=== PATIENT | male | born 1940 | race Caucasian/White ===

== ENCOUNTER 2017-02-20 23:59 | Observation (INO) | payer BC, MEDICARE ==
[2017-02-20 23:59] VITALS: BMI 47.0
[2017-02-21] MEDS ORDERED: Nitroglycerin 50mg in D5W 250 ML IV ONE (00:10)
[2017-02-21 00:32] LABS: BASO # 0.1 K/uL (0.0-0.2); BASO % 0.7 % (0.0-2.0); EOS # 0.2 K/uL (0.0-0.7); EOS % 1.9 % (0.0-4.0); HEMATOCRIT 36.6 % (35.0-51.0); LYMPH # 1.7 K/uL (1.0-4.3); LYMPH % 13.9 % (20.0-40.0); MEAN CELL VOLUME 89.6 fl (80.0-94.0); MEAN CORPUSCULAR HEMOGLOBIN 28.2 pg (27.0-31.0); MEAN CORPUSCULAR HGB CONC 31.5 g/dL (33.0-37.0); MEAN PLATELET VOLUME 8.5 fl (7.2-11.7); MONO # 0.6 K/uL (0.0-0.8); MONO % 5.2 % (0.0-10.0); NEUT # 9.8 K/uL (1.8-7.0); NEUT % 78.3 % (50.0-75.0); RED CELL DISTRIBUTION WIDTH 16.3 % (11.5-14.5); WHITE BLOOD COUNT 12.5 K/uL (4.8-10.8)
--- NOTE | 2017-02-21 00:34 | ED PDOC ---
HPI: SOB/CHF/COPD Time Seen by Provider: 02/21/17 00:07 Chief Complaint (Nursing): Respiratory Distress Chief Complaint (Provider): Respiratory Distress History Per: Patient History/Exam Limitations: no limitations Onset/Duration Of Symptoms: Hrs (x1) Current Symptoms Are (Timing): Still Present Exacerbating Factor(s): Other (Layind down) Associated Symptoms: Chest Pain Additional History Per: Patient Additional Complaint(s): Noah Edward is a 76 year old male with a past medical history of HTN, CAD, CHF , endstage renal disease, chronic kidney disease and a past surgical history of coronary stents who presents to the ED with a chief complaint of SOB onset x1 hour. Patient admits to suffering from one sided chest discomfort and unable to breath. Patient reports similar symptoms back in October and was diagnosed with CHF. SOB is worse when lying down and denies associated symptoms including nausea, and vomiting. Past Medical History Reviewed: Historical Data, Nursing Documentation, Vital Signs Vital Signs: Last Vital Signs Temp 97.6 F 02/21/17 05:07 Pulse 76 02/21/17 05:07 Resp 16 02/21/17 05:07 BP 132/75 02/21/17 05:07 Pulse Ox 97 02/21/17 06:43 - Medical History PMH: CAD ([place]), CHF, Diabetes, HTN, Hypercholesterolemia, End Stage Renal Disease , Chronic Kidney Disease Denies: HIV, Kidney Stones Other PMH: AV Graphs - Surgical History Surgical History: Coronary Stent - Family History Family History: States: Hypertension - Social History Current smoker - smoking cessation education provided: No Ex-Smoker (has not smoked in the last 12 months): No Alcohol: None Drugs: Denies - Home Medications Home Medications: Ambulatory Orders Medication Instructions Recorded Aspirin [Ecotrin] 81 mg PO DAILY 09/16/16 Calcium Acetate [Phoslo] 3 tab PO AC 09/16/16 Cinacalcet [Sensipar] 30 mg PO DAILY 09/16/16 Ergocalciferol (Vitamin D2) 50,000 iu PO QWK 09/16/16 [Vitamin D2] Insulin Glargine, Recombina 10 units SQ DAILY 09/16/16 [Lantus] Insulin Lispro [Humalog Kwikpen 4 units SQ TID 09/16/16 U-100] Metoprolol Succinate 25 mg PO DAILY 09/16/16 Omeprazole 40 mg PO HS 12/07/16 Prasugrel [Effient] 10 mg PO DAILY 09/16/16 Pravastatin Sodium 40 mg PO HS 09/16/16 - Allergies Allergies/Adverse Reactions: Allergies Allergy/AdvReac Type Severity Reaction Status Date / Time Sulfa (Sulfonamide Allergy PAIN Verified 09/15/16 22:42 Antibiotics) milk AdvReac NAUSEA Verified 09/15/16 22:42 Review of Systems ROS Statement: Except As Marked, All Systems Reviewed And Found Negative Cardiovascular: Positive for: Other (Right sided chest discomfort and unable to breath) Respiratory: Positive for: Shortness of Breath (Acute) Gastrointestinal: Negative for: Nausea, Vomiting Physical Exam - Reviewed Nursing Documentation Reviewed: Yes Vital Signs Reviewed: Yes - Physical Exam Appears: Positive for: Well, In Acute Distress (Mild) Head Exam: Positive for: ATRAUMATIC, NORMAL INSPECTION, NORMOCEPHALIC Skin: Negative for: Diaphoresis Eye Exam: Positive for: Normal appearance, EOMI, PERRL ENT: Positive for: Normal ENT Inspection Neck: Positive for: Normal Cardiovascular/Chest: Positive for: Regular Rate, Rhythm, JVD. Negative for: Murmur, Tachycardia Respiratory: Positive for: Rales (Bibasilar). Negative for: Wheezing, Respiratory Distress Gastrointestinal/Abdominal: Positive for: Normal Exam, Soft. Negative for: Tenderness Extremity: Positive for: Normal ROM DTR - Knee (R): 1+ DTR - Knee (L): 1+ DTR - Ankle (R): 1+ DTR - Ankle (L): 1+ Lymphatic: Positive for: Deferred Neurologic/Psych: Positive for: Alert, Oriented - Laboratory Results Result Diagrams: 02/21/17 00:28 02/21/17 00:28 - ECG O2 Sat by Pulse Oximetry: 97 (RA) Pulse Ox Interpretation: Normal - Radiology X-Ray: Read By Radiologist X-Ray Interpretation: Cardiomegaly, Other (Pulmonary vascular congestion, Pulmonary edema) Medical Decision Making Medical Decision Makin: Initial Impression: Acute SOB in setting of known CHF and hemodialysis. Initial Plan: * Labs * CXR * EKG * Re-Eval Patient changed to BIPAP IV nitroglycerin and lasix. 30 min critical care. CXR reports cardiomegaly bilateral pulmonary vascular congestion; pulmonary edema. Patients ALS was administered along with nitroglycerin sublingual x4 and cpap which has given him considerable relief. 0116: No clinical significant abnormalities Patient will be admitted to ICU for further treatment and CHF pulmonary edema endstage renal disease hypercholesterolemia Respiratory failure Case referred to Dr. Penaloza and admits for Dr Nuñez. Condition is guarded. Scribe Attestation: Documented by Tyler Gutierrez acting as a scribe for Micheal Mcgraw MD. Provider Scribe Attestation: All medical record entries made by the Scribe were at my direction and personally dictated by me. I have reviewed the chart and agree that the record accurately reflects my personal performance of the history, physical exam, medical decision making, and the department course for this patient. I have also personally directed, reviewed, and agree with the discharge instructions and disposition. Disposition - Clinical Impression Clinical Impression: SOB (shortness of breath), CHF (congestive heart failure) Clinical Impression: (Ruled Out): Hemodialysis access site with arteriovenous graft - Patient ED Disposition Is Patient to be Admitted: Yes Discussed With DrShar: Eric Nuñez - Disposition Condition: GUARDED
[2017-02-21 00:41] LABS: ALB/GLOB RATIO 1.3 (1.0-2.1); BILIRUBIN,TOTAL 0.6 mg/dl (0.2-1.3); CALCIUM 8.7 mg/dL (8.4-10.2); POTASSIUM 4.6 MMOL/L (3.6-5.0); TOTAL PROTEIN 7.4 G/DL (6.3-8.2)
[2017-02-21 00:52] LABS: TROPONIN I 0.074 ng/mL (0.00-0.120)
--- NOTE | 2017-02-21 01:16 | CP.PCM.HP ---
History of Present Illness - History of Present Illness History of Present Illness: PCP: Tony Reyes MD Chief Complaint: SOB HPI: 76 years old male with hx of CAD, DM, CHF and ESRD on hemodialysis Wednesday, Wednesday, and Wednesday , last dialysed 08/27 , comes with sudden unset of severe SOB one hour prior to coming to the ED. He also referred Orthopnea,Some discomfort in the chest with diaphoresis but no palpitation. No coughing, nausea nor vomits. No diarrhea nor dysuria. PMH; CAD ([place]), CHF, Diabetes, HTN, Hypercholesterolemia, End Stage Renal Disease on Hemodialysis M W F PSH; Right A-V fistula for dialysis; Coronary stent placement FH: HTN SH: Heavy smoker; No alcohol; No illegal drug use. Allergies: Sulfa Present on Admission - Present on Admission Any Indicators Present on Admission: Yes History of DVT/PE: No History of Uncontrolled Diabetes: Yes Urinary Catheter: No Decubitus Ulcer Present: No Review of Systems - Constitutional Constitutional: absent: Anorexia, Chills, Fatigue, Fever, Headache - EENT Eyes: Requires Corrective Lenses. absent: Diplopia, Photophobia, Sees Flashes Ears: absent: Decreased Hearing, Ear Discharge, Ear Pain, Tinnitus Nose/Mouth/Throat: absent: Epistaxis, Nasal Congestion, Nasal Discharge, Sinus Pain, Sinus Pressure - Cardiovascular Cardiovascular: Dyspnea, Leg Edema, Orthopnea - Respiratory Respiratory: Dyspnea, Chest Congestion. absent: Stridor - Gastrointestinal Gastrointestinal: absent: Abdominal Pain, Constipation, Diarrhea, Nausea, Vomiting - Genitourinary Genitourinary: absent: Dysuria, Flank Pain, Hematuria, Urinary Frequency - Musculoskeletal Musculoskeletal: absent: Arthralgias, Back Pain, Muscle Weakness - Integumentary Integumentary: absent: Pruritus, Rash Additional comments: Sacral Redness with papule. - Neurological Neurological: absent: Confusion, Focal Weakness, Headaches, Vertigo, Weakness - Psychiatric Psychiatric: absent: Anxiety, Depression, Panic Attacks - Endocrine Endocrine: absent: Palpitations, Polydipsia, Polyphagia, Polyuria - Hematologic/Lymphatic Hematologic: absent: Easy Bleeding, Easy Bruising Past Patient History - Infectious Disease Hx of Infectious Diseases: None - Tetanus Immunizations Tetanus Immunization: Unknown - Past Medical History & Family History Past Medical History?: Yes - Past Social History Smoking Status: Heavy Smoker > 10 Cigarettes Daily Chewing Tobacco Use: No Cigar Use: No Alcohol: None Drugs: Denies Home Situation {Lives}: With Family - CARDIAC Hx Congestive Heart Failure: Yes Hx Hypercholesterolemia: Yes Hx Hypertension: Yes - PULMONARY Hx Respiratory Disorders: No - NEUROLOGICAL Hx Neurological Disorder: No - HEENT Hx HEENT Problems: Yes Other/Comment: Use Eyeglasses - RENAL Hx Chronic Kidney Disease: Yes Hx Kidney Stones: No - ENDOCRINE/METABOLIC Hx Endocrine Disorders: Yes Hx Diabetes Mellitus Type 2: Yes - HEMATOLOGICAL/ONCOLOGICAL Hx Human Immunodeficiency Virus (HIV): No - INTEGUMENTARY Hx Dermatological Problems: Yes Hx Merchant: 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 - MUSCULOSKELETAL/RHEUMATOLOGICAL Hx Musculoskeletal Disorders: No Hx Falls: No - GASTROINTESTINAL Hx Gastrointestinal Disorders: No - GENITOURINARY/GYNECOLOGICAL Hx Genitourinary Disorders: No - PSYCHIATRIC Hx Psychophysiologic Disorder: No Hx Substance Use: No - SURGICAL HISTORY Hx Coronary Stent: Yes - ANESTHESIA Hx Anesthesia: Yes Hx Anesthesia Reactions: No Hx Malignant Hyperthermia: No Meds Allergies/Adverse Reactions: Allergies Allergy/AdvReac Type Severity Reaction Status Date / Time Sulfa (Sulfonamide Allergy PAIN Verified 09/15/16 22:42 Antibiotics) milk AdvReac NAUSEA Verified 09/15/16 22:42 Physical Exam - Constitutional Additional comments: On BIPAP with improvement of the respiratory distress at this time of examination. - Head Exam Head Exam: ATRAUMATIC, NORMAL INSPECTION, NORMOCEPHALIC - Eye Exam Eye Exam: EOMI, Normal appearance Pupil Exam: NORMAL ACCOMODATION, PERRL - ENT Exam ENT Exam: Mucous Membranes Moist, Normal Exam, Normal External Ear Exam, Normal Oropharynx - Neck Exam Neck exam: Positive for: Full Rom, Normal Inspection. Negative for: Lymphadenopathy, Tenderness - Respiratory Exam Respiratory Exam: Rales, Wheezes. absent: Rhonchi - Cardiovascular Exam Cardiovascular Exam: RRR. absent: Gallop, REGULAR RHYTHM - GI/Abdominal Exam GI & Abdominal Exam: Normal Bowel Sounds, Soft. absent: Mass, Organomegaly, Tenderness - Rectal Exam Rectal Exam: Deferred - Extremities Exam Extremities exam: Positive for: full ROM, normal inspection, pedal edema. Negative for: calf tenderness - Back Exam Back exam: NORMAL INSPECTION. absent: CVA tenderness (L), CVA tenderness (R) - Neurological Exam Neurological exam: Alert, CN II-XII Intact, Oriented x3, Reflexes Normal - Psychiatric Exam Psychiatric exam: Normal Affect, Normal Mood - Skin Skin Exam: Dry, Intact, Normal Color, Warm Additional comments: sacral erythema with a papule Results - Vital Signs Recent Vital Signs: Last Vital Signs Temp 97.5 F L 02/21/17 00:12 Pulse 94 H 02/21/17 01:07 Resp 16 02/21/17 01:07 BP 127/65 02/21/17 01:07 Pulse Ox 97 02/21/17 01:12 - Labs Result Diagrams: 02/21/17 00:28 02/21/17 00:28 Labs: Laboratory Results - last 24 hr 02/21/17 02/21/17 02/21/17 00:20 00:28 00:28 WBC 12.5 H D RBC 4.08 L Hgb 11.5 L D Hct 36.6 MCV 89.6 MCH 28.2 MCHC 31.5 L RDW 16.3 H Plt Count 176 MPV 8.5 Neut % (Auto) 78.3 H Lymph % (Auto) 13.9 L [place] % (Auto) 5.2 Eos % (Auto) 1.9 Baso % (Auto) 0.7 Neut # 9.8 H Lymph # 1.7 [place] # 0.6 Eos # 0.2 Baso # 0.1 Sodium 144 Potassium 4.6 Chloride 99 Carbon Dioxide 26 Anion Gap 24 H BUN 81 H Creatinine 9.8 H* D Est GFR ( Amer) 6 Est GFR (Non-Af Amer) 5 Random Glucose 178 H Calcium 8.7 Total Bilirubin 0.6 AST 30 ALT 50 Alkaline Phosphatase 90 Troponin I 0.0740 Total Protein 7.4 Albumin 4.1 Globulin 3.3 Albumin/Globulin Ratio 1.3 Influenza Typ A,B (EIA) Negative for flu a/b - Imaging and Cardiology Chest x-ray Status: Image reviewed by me Additional comment: Bilateral interstitial infiltrate Assessment & Plan - Assessment and Plan (Free Text) Assessment: #.Respiratory Distress #. Volume overload with Pulmonary edema #. ESRD #. Anemia of Chronic Disease #. DM II with hyperglycemia #. Leukocytosis #. CAD Plan: 76 years old male with hx of CAD, DM, CHF and ESRD on hemodialysis Wednesday, Wednesday, and Wednesday , last dialyses 08/27 , comes with sudden unset of severe SOB one hour prior to coming to the ED. #. Respiratory Distress caused by the volume overload - Place patient on BIPAP12/6 rate of 12 and Fio2 of 50% #. Volume overload with Pulmonary edema - Lasix IV - Dialysis to remove fluid - Metoprolol/ Enalapril #. ESRD on HD - consult Dr Lyon nephrology - Dialysis #. Anemia of Chronic Disease - follow Hb #. DM II with hyperglycemia - Diabetic diet - Regular Insulin with sliding scale according to accucheck - HbA1c 6.6 in October 2016 #. CAD s/p Stents placement ASA/ Brilinta/ Metoprolol/ Pravastatin #. HTN - Metoprolol/ Enalapril #. DVT prophylaxis: patient on Sub Q Heparin #. Code Status Full - Date & Time Date: 02/21/17 Time: 01:16
[2017-02-21 01:19] LABS: PARTIAL THROMBOPLASTIN TIME 24.6 SECONDS (23.3-32.5)
[2017-02-21] MEDS ORDERED: Ergocalciferol 50,000 Intl Units Cap PO SCH (02:00)
[2017-02-21] MEDS: Insulin Lispro (humaLOG) 100 Units/ml Inj SC SCH ×4 (06:50→22:19)
--- NOTE | 2017-02-21 08:07 | RAD ---
HISTORY: SOB COMPARISON: No prior. FINDINGS: LUNGS: Mild bilateral pulmonary interstitial prominence. PLEURA: No significant pleural effusion identified, no pneumothorax apparent. CARDIOVASCULAR: Normal. OSSEOUS STRUCTURES: No significant abnormalities. VISUALIZED UPPER ABDOMEN: Normal. OTHER FINDINGS: None. IMPRESSION: Mild bilateral pulmonary interstitial prominence.
[2017-02-21 08:31] LABS: BASO % 0.8 % (0.0-2.0); EOS # 0.1 K/uL (0.0-0.7); EOS % 1.5 % (0.0-4.0); HEMATOCRIT 30.6 % (35.0-51.0); LYMPH % 17.3 % (20.0-40.0); MEAN CORPUSCULAR HGB CONC 32.9 g/dL (33.0-37.0); MEAN PLATELET VOLUME 8.8 fl (7.2-11.7); MONO # 0.4 K/uL (0.0-0.8); NEUT % 72.4 % (50.0-75.0); RED CELL DISTRIBUTION WIDTH 16.2 % (11.5-14.5); WHITE BLOOD COUNT 5.5 K/uL (4.8-10.8)
[2017-02-21 08:52] LABS: CALCIUM 8.7 mg/dL (8.4-10.2)
[2017-02-21 08:56] LABS: TROPONIN I 0.346 ng/mL (0.00-0.120)
[2017-02-21 09:00] LABS: POTASSIUM 5.3 MMOL/L (3.6-5.0)
[2017-02-21] MEDS: Metoprolol Succinate 25 mg XL Tab PO SCH (10:04)
--- NOTE | 2017-02-21 10:18 | CP.PCM.CON ---
History of Present Illness - History of Present Illness History of Present Illness: Full Note Dictated Pulm Oedema following salt loading ESRD S/P Cor Stenting in ( LAD and OM) DM(II)/HTN Chr Obesity Will under go HD today Pt has been eating canned food/ processed food preseved in salt regularly, needs Dietary conselling re salt restriction. Past Patient History - Infectious Disease Hx of Infectious Diseases: None - Tetanus Immunizations Tetanus Immunization: Unknown - Past Medical History & Family History Past Medical History?: Yes - Past Social History Alcohol: None Drugs: Denies - CARDIAC Hx Congestive Heart Failure: Yes Hx Hypercholesterolemia: Yes Hx Hypertension: Yes - PULMONARY Hx Respiratory Disorders: Yes - NEUROLOGICAL Hx Neurological Disorder: No - HEENT Hx HEENT Problems: Yes - RENAL Hx Chronic Kidney Disease: Yes Hx Kidney Stones: No - ENDOCRINE/METABOLIC Hx Endocrine Disorders: Yes - HEMATOLOGICAL/ONCOLOGICAL Hx Human Immunodeficiency Virus (HIV): No - INTEGUMENTARY Hx Dermatological Problems: Yes - MUSCULOSKELETAL/RHEUMATOLOGICAL Hx Musculoskeletal Disorders: No - GASTROINTESTINAL Hx Gastrointestinal Disorders: No - GENITOURINARY/GYNECOLOGICAL Hx Genitourinary Disorders: No - PSYCHIATRIC Hx Psychophysiologic Disorder: No - SURGICAL HISTORY Hx Coronary Stent: Yes - ANESTHESIA Hx Anesthesia: Yes Hx Anesthesia Reactions: No Hx Malignant Hyperthermia: No Meds Allergies/Adverse Reactions: Allergies Allergy/AdvReac Type Severity Reaction Status Date / Time Sulfa (Sulfonamide Allergy PAIN Verified 09/15/16 22:42 Antibiotics) milk AdvReac NAUSEA Verified 09/15/16 22:42 - Medications Medications: Current Medications Aspirin (Ecotrin) 81 mg PO DAILY [facility] Last Admin: 02/21/17 10:01 Dose: 81 mg Calcium Acetate (Phoslo) 2,001 mg PO AC [facility] Last Admin: 02/21/17 07:35 Dose: 2,001 mg Cinacalcet (Sensipar) 30 mg PO DAILY [facility] Last Admin: 02/21/17 09:57 Dose: 30 mg Ergocalciferol (Drisdol 50,000 Intl Units Cap) 1 cap PO QWK [facility] Last Admin: 02/21/17 10:04 Dose: 1 cap Furosemide (Lasix) 40 mg IV DAILY [facility] Last Admin: 02/21/17 09:59 Dose: 40 mg Heparin Sodium (Porcine) (Heparin) 5,000 units SC Q8 [facility] PRN Reason: Protocol Last Admin: 02/21/17 09:57 Dose: 5,000 units Home Med (Prasugrel [Effient]) 10 mg PO DAILY [facility] Insulin Detemir (Levemir) 10 units SC HS [facility] Insulin Human Lispro (Humalog) 0 units SC [facility] PRN Reason: Protocol Last Admin: 02/21/17 06:50 Dose: Not Given Metoprolol Succinate (Toprol Xl) 25 mg PO DAILY [facility] Last Admin: 02/21/17 10:04 Dose: 25 mg Pantoprazole Sodium (Protonix Ec Tab) 40 mg PO HS [facility] Pravastatin Sodium (Pravachol) 40 mg PO HS [facility] Ticagrelor (Brilinta) 90 mg PO BID [facility] Last Admin: 02/21/17 09:59 Dose: 90 mg Results - Vital Signs Recent Vital Signs: Last Vital Signs Temp 97.8 F 02/21/17 10:00 Pulse 76 02/21/17 10:04 Resp 20 02/21/17 10:00 BP 132/75 02/21/17 10:04 Pulse Ox 100 02/21/17 10:00 - Labs Result Diagrams: 02/21/17 06:00 02/21/17 06:00 Labs: Laboratory Results - last 24 hr 02/21/17 02/21/17 02/21/17 00:20 00:23 00:28 WBC 12.5 H D RBC 4.08 L Hgb 11.5 L D Hct 36.6 MCV 89.6 MCH 28.2 MCHC 31.5 L RDW 16.3 H Plt Count 176 MPV 8.5 Neut % (Auto) 78.3 H Lymph % (Auto) 13.9 L [place] % (Auto) 5.2 Eos % (Auto) 1.9 Baso % (Auto) 0.7 Neut # 9.8 H Lymph # 1.7 [place] # 0.6 Eos # 0.2 Baso # 0.1 PT INR APTT Sodium Potassium Chloride Carbon Dioxide Anion Gap BUN Creatinine Est GFR ( Amer) Est GFR (Non-Af Amer) POC Glucose (mg/dL) 199 H Random Glucose Calcium Total Bilirubin AST ALT Alkaline Phosphatase Troponin I Total Protein Albumin Globulin Albumin/Globulin Ratio Influenza Typ A,B (EIA) Negative for flu a/b 02/21/17 02/21/17 02/21/17 00:28 00:28 05:29 WBC RBC Hgb Hct MCV MCH MCHC RDW Plt Count MPV Neut % (Auto) Lymph % (Auto) [place] % (Auto) Eos % (Auto) Baso % (Auto) Neut # Lymph # [place] # Eos # Baso # PT 11.1 INR 1.07 APTT 24.6 Sodium 144 Potassium 4.6 Chloride 99 Carbon Dioxide 26 Anion Gap 24 H BUN 81 H Creatinine 9.8 H* D Est GFR ( Amer) 6 Est GFR (Non-Af Amer) 5 POC Glucose (mg/dL) 130 H Random Glucose 178 H Calcium 8.7 Total Bilirubin 0.6 AST 30 ALT 50 Alkaline Phosphatase 90 Troponin I 0.0740 Total Protein 7.4 Albumin 4.1 Globulin 3.3 Albumin/Globulin Ratio 1.3 Influenza Typ A,B (EIA) 02/21/17 02/21/17 06:00 06:00 WBC 5.5 D RBC 3.48 L Hgb 10.1 L Hct 30.6 L MCV 88.0 MCH 29.0 MCHC 32.9 L RDW 16.2 H Plt Count 129 L D MPV 8.8 Neut % (Auto) 72.4 Lymph % (Auto) 17.3 L [place] % (Auto) 8.0 Eos % (Auto) 1.5 Baso % (Auto) 0.8 Neut # 4.0 Lymph # 1.0 [place] # 0.4 Eos # 0.1 Baso # 0.0 PT INR APTT Sodium 144 Potassium 5.3 H Chloride 99 Carbon Dioxide 29 Anion Gap 21 H BUN 83 H Creatinine 10.4 H* Est GFR ( Amer) 6 Est GFR (Non-Af Amer) 5 POC Glucose (mg/dL) Random Glucose 115 H Calcium 8.7 Total Bilirubin AST ALT Alkaline Phosphatase Troponin I 0.3460 H* Total Protein Albumin Globulin Albumin/Globulin Ratio Influenza Typ A,B (EIA)
--- NOTE | 2017-02-21 12:00 | CP.PCM.CON ---
History of Present Illness - History of Present Illness History of Present Illness: 76 years old male with CAD, DM, CHF and ESRD on hemodialysis Wednesday, Wednesday, and Wednesday at [facility] his dialysis was on wednesday. he is admitted with worsening sob with orthopnea. No coughing, nausea nor vomits. No diarrhea nor dysuria. Review of Systems - Review of Systems All systems: reviewed and no additional remarkable complaints except Past Patient History - Infectious Disease Hx of Infectious Diseases: None - Tetanus Immunizations Tetanus Immunization: Unknown - Past Medical History & Family History Past Medical History?: Yes - Past Social History Alcohol: None Drugs: Denies - CARDIAC Hx Congestive Heart Failure: Yes Hx Hypercholesterolemia: Yes Hx Hypertension: Yes - PULMONARY Hx Respiratory Disorders: Yes - NEUROLOGICAL Hx Neurological Disorder: No - HEENT Hx HEENT Problems: Yes - RENAL Hx Chronic Kidney Disease: Yes Hx Kidney Stones: No - ENDOCRINE/METABOLIC Hx Endocrine Disorders: Yes - HEMATOLOGICAL/ONCOLOGICAL Hx Human Immunodeficiency Virus (HIV): No - INTEGUMENTARY Hx Dermatological Problems: Yes - MUSCULOSKELETAL/RHEUMATOLOGICAL Hx Musculoskeletal Disorders: No - GASTROINTESTINAL Hx Gastrointestinal Disorders: No - GENITOURINARY/GYNECOLOGICAL Hx Genitourinary Disorders: No - PSYCHIATRIC Hx Psychophysiologic Disorder: No - SURGICAL HISTORY Hx Coronary Stent: Yes - ANESTHESIA Hx Anesthesia: Yes Hx Anesthesia Reactions: No Hx Malignant Hyperthermia: No Meds Allergies/Adverse Reactions: Allergies Allergy/AdvReac Type Severity Reaction Status Date / Time Sulfa (Sulfonamide Allergy PAIN Verified 09/15/16 22:42 Antibiotics) milk AdvReac NAUSEA Verified 09/15/16 22:42 - Medications Medications: Current Medications Aspirin (Ecotrin) 81 mg PO DAILY [facility] Last Admin: 02/21/17 10:01 Dose: 81 mg Calcium Acetate (Phoslo) 2,001 mg PO AC [facility] Last Admin: 02/21/17 07:35 Dose: 2,001 mg Cinacalcet (Sensipar) 30 mg PO DAILY [facility] Last Admin: 02/21/17 09:57 Dose: 30 mg Ergocalciferol (Drisdol 50,000 Intl Units Cap) 1 cap PO QWK [facility] Last Admin: 02/21/17 10:04 Dose: 1 cap Furosemide (Lasix) 40 mg IV DAILY [facility] Last Admin: 02/21/17 09:59 Dose: 40 mg Heparin Sodium (Porcine) (Heparin) 5,000 units SC Q8 [facility] PRN Reason: Protocol Last Admin: 02/21/17 09:57 Dose: 5,000 units Home Med (Prasugrel [Effient]) 10 mg PO DAILY [facility] Insulin Detemir (Levemir) 10 units SC HS [facility] Insulin Human Lispro (Humalog) 0 units SC ACHS [facility] PRN Reason: Protocol Last Admin: 02/21/17 06:50 Dose: Not Given Metoprolol Succinate (Toprol Xl) 25 mg PO DAILY [facility] Last Admin: 02/21/17 10:04 Dose: 25 mg Pantoprazole Sodium (Protonix Ec Tab) 40 mg PO HS [facility] Pravastatin Sodium (Pravachol) 40 mg PO HS [facility] Ticagrelor (Brilinta) 90 mg PO BID [facility] Last Admin: 02/21/17 09:59 Dose: 90 mg Physical Exam - Constitutional Appears: Well, Non-toxic, No Acute Distress - Head Exam Head Exam: NORMAL INSPECTION - Eye Exam Eye Exam: Normal appearance - ENT Exam ENT Exam: Mucous Membranes Moist - Neck Exam Neck exam: Positive for: Normal Inspection - Respiratory Exam Respiratory Exam: NORMAL BREATHING PATTERN - Cardiovascular Exam Cardiovascular Exam: REGULAR RHYTHM, +S1, +S2 - GI/Abdominal Exam GI & Abdominal Exam: Soft - Extremities Exam Extremities exam: Positive for: normal inspection - Neurological Exam Neurological exam: Alert, Oriented x3 - Psychiatric Exam Psychiatric exam: Flat Affect - Skin Skin Exam: Dry, Warm Results - Vital Signs Recent Vital Signs: Last Vital Signs Temp 97.8 F 02/21/17 10:00 Pulse 76 02/21/17 10:04 Resp 20 02/21/17 10:00 BP 132/75 02/21/17 10:04 Pulse Ox 100 02/21/17 10:00 - Labs Result Diagrams: 02/21/17 06:00 02/21/17 06:00 Labs: Laboratory Results - last 24 hr 02/21/17 02/21/17 02/21/17 00:20 00:23 00:28 WBC 12.5 H D RBC 4.08 L Hgb 11.5 L D Hct 36.6 MCV 89.6 MCH 28.2 MCHC 31.5 L RDW 16.3 H Plt Count 176 MPV 8.5 Neut % (Auto) 78.3 H Lymph % (Auto) 13.9 L Republic % (Auto) 5.2 Eos % (Auto) 1.9 Baso % (Auto) 0.7 Neut # 9.8 H Lymph # 1.7 Republic # 0.6 Eos # 0.2 Baso # 0.1 PT INR APTT Sodium Potassium Chloride Carbon Dioxide Anion Gap BUN Creatinine Est GFR ( Amer) Est GFR (Non-Af Amer) POC Glucose (mg/dL) 199 H Random Glucose Calcium Total Bilirubin AST ALT Alkaline Phosphatase Troponin I Total Protein Albumin Globulin Albumin/Globulin Ratio Influenza Typ A,B (EIA) Negative for flu a/b 02/21/17 02/21/17 02/21/17 00:28 00:28 05:29 WBC RBC Hgb Hct MCV MCH MCHC RDW Plt Count MPV Neut % (Auto) Lymph % (Auto) Republic % (Auto) Eos % (Auto) Baso % (Auto) Neut # Lymph # Republic # Eos # Baso # PT 11.1 INR 1.07 APTT 24.6 Sodium 144 Potassium 4.6 Chloride 99 Carbon Dioxide 26 Anion Gap 24 H BUN 81 H Creatinine 9.8 H* D Est GFR ( Amer) 6 Est GFR (Non-Af Amer) 5 POC Glucose (mg/dL) 130 H Random Glucose 178 H Calcium 8.7 Total Bilirubin 0.6 AST 30 ALT 50 Alkaline Phosphatase 90 Troponin I 0.0740 Total Protein 7.4 Albumin 4.1 Globulin 3.3 Albumin/Globulin Ratio 1.3 Influenza Typ A,B (EIA) 02/21/17 02/21/17 06:00 06:00 WBC 5.5 D RBC 3.48 L Hgb 10.1 L Hct 30.6 L MCV 88.0 MCH 29.0 MCHC 32.9 L RDW 16.2 H Plt Count 129 L D MPV 8.8 Neut % (Auto) 72.4 Lymph % (Auto) 17.3 L Republic % (Auto) 8.0 Eos % (Auto) 1.5 Baso % (Auto) 0.8 Neut # 4.0 Lymph # 1.0 Republic # 0.4 Eos # 0.1 Baso # 0.0 PT INR APTT Sodium 144 Potassium 5.3 H Chloride 99 Carbon Dioxide 29 Anion Gap 21 H BUN 83 H Creatinine 10.4 H* Est GFR ( Amer) 6 Est GFR (Non-Af Amer) 5 POC Glucose (mg/dL) Random Glucose 115 H Calcium 8.7 Total Bilirubin AST ALT Alkaline Phosphatase Troponin I 0.3460 H* Total Protein Albumin Globulin Albumin/Globulin Ratio Influenza Typ A,B (EIA) Assessment & Plan - Assessment and Plan (Free Text) Plan: ESRD/HTN/volume overload/dm/anemia usual hd days are mwf, will do an extra session today michael reviewed anemia, stable he is anuric hence can discontinue lasix bp ok
[2017-02-21 13:43] LABS: PHOSPHOROUS 5.9 mg/dl (2.5-4.5)
--- NOTE | 2017-02-21 14:00 | CON ---
DATE: 02/21/2017 He is hospitalized under the hospitalist's care in room 405, bed 2. This 76-year-old man, chronically obese and hypertensive and diabetic with end- stage renal disease on hemodialysis, came into the hospital after developing orthopnea and profound shortness of breath following a democrat, during which he ate a lot of salty food, particularly food preserved in salt and processed food. He admits to eating canned food preserved in salt freely, does not seem to have any understanding of a salt restricted diet. Admits to being a smoker in the past and had required stenting of left anterior descending and the first obtuse marginal blood vessel in October of this year, but does not seem to recall it well. Denies any chest pain, but became profoundly short of breath and arrived at in the hospital. PHYSICAL EXAMINATION GENERAL: Shows an elderly, obese man who can carry on a conversation now, was on a BiPAP machine. VITAL SIGNS: Has a pulse rate of 88 beats per minute, regular, and a blood pressure of 126/72 mmHg. Jugular venous pressure could not be evaluated because of a short thick neck. EXTREMITIES: Mild pedal edema was evident. A functioning AV hemodialysis fistula was on the right upper extremity. His extremities were warm, nailbeds were pink. No central or peripheral cyanosis was present. PULMONARY: His respiratory rate was 18-20 breaths per minute. The patient could not lie down flat. A few rales were audible at both bases. HEART: His apex was not palpable. The first and second heart sounds were distant, but normal. There was no gallop rhythm. His electrocardiogram showed sinus rhythm with Q-waves in lead 3, but no Q- waves in aVF. There were no QS complexes in the anterior chest leads. Review of his echocardiogram from last hospitalization, the images were extremely poor and a precise ejection fraction could not be assessed. A ventriculogram done during coronary angiography in October of this year did show a depressed left ventricular ejection fraction at about 40%. LABORATORY DATA: Shows significant azotemia with his BUN and creatinine this morning being 83 and 10.4 mg % respectively. His hemoglobin and hematocrit were 11.5 grams and 36.6% respectively. His platelet count was 176,000. The troponin level, which was 0.07 at admission, was 0.34, which may represent multiple factors including the patient having renal failure and acute left ventricular decompensation following salt loading. Electrocardiogram does not show a pattern suggestive of an acute myocardial infarction. There are chronic ST-T abnormalities, which are persistent on the electrocardiogram. IMPRESSION: At this time is acute pulmonary edema following salt loading in a patient with known coronary artery disease, chronic end-stage renal disease secondary to hypertension, diabetes, chronic exogenous obesity, status post stenting of left anterior descending and obtuse marginal in October of this year. Among his medications, the patient has been taking aspirin and Effient. He is on metoprolol and pravastatin. At this juncture, he is hemodynamically stable. I have instructed a dietary counseling regarding salt restriction that patient needs to understand given his propensity for developing volume overload whenever he is salt loaded. Flynn Cooper MD cc: 23 TT: 02/21/2017 13:59:57 Confirmation # [id number] Dictation # [id number] en MTDD
[2017-02-21 14:38] LABS: TROPONIN I 0.381 ng/mL (0.00-0.120)
[2017-02-21] MEDS ORDERED: Pantoprazole 40 mg EC Tab PO SCH (22:00)
[2017-02-21] MEDS ORDERED: Insulin Detemir 100 Units/ml Inj SC SCH (22:00)
[2017-02-21] MEDS ORDERED: Pravastatin Sodium 40 MG TAB PO SCH (22:00)
[2017-02-22 06:46] LABS: MEAN CORPUSCULAR HEMOGLOBIN 28.3 pg (27.0-31.0); MEAN CORPUSCULAR HGB CONC 31.8 g/dL (33.0-37.0); RED CELL DISTRIBUTION WIDTH 15.8 % (11.5-14.5); WHITE BLOOD COUNT 6.4 K/uL (4.8-10.8)
[2017-02-22 07:07] LABS: POTASSIUM 4.7 MMOL/L (3.6-5.0)
--- NOTE | 2017-02-22 08:51 | CARD ---
APPROVED REPORT EKG Measurement Heart [id number] MS [id number] <Conclusion> Normal sinus rhythm Possiblw inferior infarct, age undetermined Abnormal ECG
[2017-02-22] MEDS: Metoprolol Succinate 25 mg XL Tab PO SCH (09:36)
--- NOTE | 2017-02-22 09:36 | CARD ---
APPROVED REPORT EKG Measurement Heart [id number] <Conclusion> Sinus tachycardia with occasional premature ventricular complexes Possible inferior infarct-possibly acute-ST elevation in inferior limb lead III is new compared to earlier EKG Abnormal ECG note: the patient is already being seen by a fire prevention chief on this admission
[2017-02-22] MEDS: Insulin Lispro (humaLOG) 100 Units/ml Inj SC SCH ×3 (09:37→16:47)
--- NOTE | 2017-02-22 13:46 | CP.PCM.PN ---
Subjective - Date & Time of Evaluation Date of Evaluation: 02/22/17 Time of Evaluation: 10:15 - Subjective Subjective: Follow up Nephrology Consultation Note Assessment/Plan: End stage renal disease on hemodialysis (MWF) via AVF with fluid overload due to dietary non-compliance: Will plan for routine HD today as ordered with 2 K bath. continue with Nephrovite 1 tab/day. he had extra sesssion of HD yesterday. Anemia: PRBC as needed. last Hb 10.4 Hyperphosphatemia: continue with home meds, last phos level 5.9 Hypertension control with meds as ordered. Patient not on RAAS jerald. His BP controlled now. if needed may be added in future Glycemic control, Dialysis consistent diet Further work up/management as per primary team Dose meds/antibiotics (if needed) for ESRD status. Avoid fleets enema/magnesium based laxatives. once patient d/c then f/up PCP and his dialysis unit/[facility] Administrator Thanks for allowing me to participate in care of your patient. Will follow patient with you while here. Please call if any Qs Dr Kiel García Office: [phone] Subjective: Noted events overnight. Patients feels better. Denies chest pain, palpitation. improved shortness of breath. denies leg swelling. doesn't make much urine Physical Examination: General Appearance: Comfortable, in no acute respiratory distress, co- operative. Obese Vitals reviewed and noted as below Lungs: Normal respiratory rate/effort. Breath sounds bilateral equal and clear Heart: Normal rate. s1s2 normal. No rub or gallop. Extremities: no edema. Neurological: Patient is alert, awake and oriented to person, place and time. No focal deficit. Strength bilateral appropriate and equal Skin: Warm and dry. Normal turgor. No rash. Palpitation: Normal elasticity for age Abdomen: Abdomen is soft. Bowel sounds +. There is no abdominal tenderness, no guarding/rigidity or organomegaly : kidney or bladder not palpable Access: RUE AVF Labs/imaging reviewed. Past medical history, past surgical history, family history, social history, allergy reviewed and noted Objective - Vital Signs/Intake and Output Vital Signs (last 24 hours): Temp Pulse Resp BP Pulse Ox 98 F 74 18 131/69 99 02/22/17 12:12 02/22/17 12:12 02/22/17 12:12 02/22/17 12:12 02/22/17 12:12 - Medications Medications: Current Medications Aspirin (Ecotrin) 81 mg PO DAILY [facility] Last Admin: 02/22/17 09:35 Dose: 81 mg Calcium Acetate (Phoslo) 2,001 mg PO AC [facility] Last Admin: 02/22/17 12:07 Dose: 2,001 mg Cinacalcet (Sensipar) 30 mg PO DAILY [facility] Last Admin: 02/22/17 09:35 Dose: 30 mg Ergocalciferol (Drisdol 50,000 Intl Units Cap) 1 cap PO QWK [facility] Last Admin: 02/21/17 10:04 Dose: 1 cap Heparin Sodium (Porcine) (Heparin) 5,000 units SC Q8 [facility] PRN Reason: Protocol Last Admin: 02/22/17 09:37 Dose: 5,000 units Home Med (Prasugrel [Effient]) 10 mg PO DAILY [facility] Insulin Detemir (Levemir) 10 units SC HS [facility] Last Admin: 02/21/17 22:29 Dose: 10 units Insulin Human Lispro (Humalog) 0 units SC ACHS [facility] PRN Reason: Protocol Last Admin: 02/22/17 12:06 Dose: Not Given Metoprolol Succinate (Toprol Xl) 25 mg PO DAILY [facility] Last Admin: 02/22/17 09:36 Dose: Not Given Pantoprazole Sodium (Protonix Ec Tab) 40 mg PO HS [facility] Last Admin: 02/21/17 22:29 Dose: 40 mg Pravastatin Sodium (Pravachol) 40 mg PO HS [facility] Last Admin: 02/21/17 22:29 Dose: 40 mg Ticagrelor (Brilinta) 90 mg PO BID [facility] Last Admin: 02/22/17 09:37 Dose: 90 mg Vitamin B Complex/Vit C/Folic Acid (Nephro-Adriano) 1 tab PO DAILY [facility] - Labs Labs: 02/22/17 05:15 02/22/17 05:15 PT 11.1 SECONDS (9.6-11.2) 02/21/17 00:28 INR 1.07 (0.92-1.08) 02/21/17 00:28 APTT 24.6 SECONDS (23.3-32.5) 02/21/17 00:28
[2017-02-22 15:51] VITALS: BP 122/63; PULSE 86; RESP 20; TEMP 97.6; O2SAT 100
--- NOTE | 2017-02-22 15:51 | CP.PCM.DIS ---
Provider - Provider Date of Admission: 02/21/17 00:18 Attending physician: Andreas Penaloza Primary care physician: Dr Nuñez Consults: Nephrology: Dr Velasquez Cardio Dr Lagos Time Spent in preparation of Discharge (in minutes): 40 Diagnosis - Discharge Diagnosis (1) Acute respiratory failure with hypoxia Status: Acute (2) Volume overload Status: Acute (3) Elevated troponin level Status: Acute (4) CAD (coronary artery disease) Status: Chronic (5) ESRD (end stage renal disease) Status: Chronic (6) Diabetes mellitus Status: Chronic (7) HTN (hypertension) Status: Chronic (8) DVT prophylaxis Status: Acute Hospital Course - Lab Results Lab Results: Most Recent Lab Values WBC 6.4 K/uL (4.8-10.8) 02/22/17 05:15 RBC 3.71 Mil/uL (4.40-5.90) L 02/22/17 05:15 Hgb 10.5 g/dL (12.0-18.0) L 02/22/17 05:15 Hct 33.0 % (35.0-51.0) L 02/22/17 05:15 MCV 89.0 fl (80.0-94.0) 02/22/17 05:15 MCH 28.3 pg (27.0-31.0) 02/22/17 05:15 MCHC 31.8 g/dL (33.0-37.0) L 02/22/17 05:15 RDW 15.8 % (11.5-14.5) H 02/22/17 05:15 Plt Count 140 K/uL (130-400) 02/22/17 05:15 MPV 8.8 fl (7.2-11.7) 02/21/17 06:00 Neut % (Auto) 72.4 % (50.0-75.0) 02/21/17 06:00 Lymph % (Auto) 17.3 % (20.0-40.0) L 02/21/17 06:00 Bailey % (Auto) 8.0 % (0.0-10.0) 02/21/17 06:00 Eos % (Auto) 1.5 % (0.0-4.0) 02/21/17 06:00 Baso % (Auto) 0.8 % (0.0-2.0) 02/21/17 06:00 Neut # 4.0 K/uL (1.8-7.0) 02/21/17 06:00 Lymph # 1.0 K/uL (1.0-4.3) 02/21/17 06:00 Bailey # 0.4 K/uL (0.0-0.8) 02/21/17 06:00 Eos # 0.1 K/uL (0.0-0.7) 02/21/17 06:00 Baso # 0.0 K/uL (0.0-0.2) 02/21/17 06:00 PT 11.1 SECONDS (9.6-11.2) 02/21/17 00:28 INR 1.07 (0.92-1.08) 02/21/17 00:28 APTT 24.6 SECONDS (23.3-32.5) 02/21/17 00:28 Sodium 144 mmol/l (132-148) 02/22/17 05:15 Potassium 4.7 MMOL/L (3.6-5.0) 02/22/17 05:15 Chloride 96 mmol/L (98-107) L 02/22/17 05:15 Carbon Dioxide 32 mmol/L (22-30) H 02/22/17 05:15 Anion Gap 21 (10-20) H 02/22/17 05:15 BUN 65 mg/dl (9-20) H 02/22/17 05:15 Creatinine 9.6 mg/dL (0.8-1.5) H* 02/22/17 05:15 Est GFR ( Amer) 6 02/22/17 05:15 Est GFR (Non-Af Amer) 5 02/22/17 05:15 POC Glucose (mg/dL) 150 mg/dL (65-110) H 02/22/17 10:45 Random Glucose 92 mg/dL (75-110) 02/22/17 05:15 Calcium 9.0 mg/dL (8.4-10.2) 02/22/17 05:15 Phosphorus 5.9 mg/dl (2.5-4.5) H 02/21/17 11:25 Total Bilirubin 0.6 mg/dl (0.2-1.3) 02/21/17 00:28 AST 30 U/L (17-59) 02/21/17 00:28 ALT 50 U/L (21-72) 02/21/17 00:28 Alkaline Phosphatase 90 U/L (38-126) 02/21/17 00:28 Troponin I 0.2630 ng/mL (0.00-0.120) H* 02/22/17 05:15 Total Protein 7.4 G/DL (6.3-8.2) 02/21/17 00:28 Albumin 4.1 g/dL (3.5-5.0) 02/21/17 00:28 Globulin 3.3 gm/dL (2.2-3.9) 02/21/17 00:28 Albumin/Globulin Ratio 1.3 (1.0-2.1) 02/21/17 00:28 Hep Bs Antigen Negative (NEGATIVE) 02/21/17 18:20 Hep Bs Antibody Positive (NEGATIVE) 02/21/17 18:20 Hep B Core IgM Ab Negative (NEGATIVE) 02/21/17 18:20 Hepatitis C Antibody Negative (NEGATIVE) 02/21/17 18:20 Influenza Typ A,B (EIA) Negative for flu a/b (NEGATIVE) 02/21/17 00:20 - Hospital Course Hospital Course: 76 years old male with hx of CAD, DM, CHF and ESRD on hemodialysis Wednesday, Wednesday, and Wednesday , last dialyses 08/27 , comes with sudden unset of severe SOB one hour prior to coming to the ED. At the ED , pt was noted to be in resp failure. He was styarted on Bipap. CXR showed Pulm Vascular congestion. Nephrology consulted and rec emergent Hemodialysis. Pt had back to back HD w/c resolved his symptoms. At present, pt is markedly improved. Saturating 98% on Room Air. #. Acute Respiratory Failure caused by the volume overload - Place patient on BIPAP12/6 rate of 12 and Fio2 of 50% - improved with Hemodialysis #. Volume overload with Pulmonary edema sec to ESRD - Lasix IV - Dialysis to remove fluid back to back done - Metoprolol/ Enalapril #. ESRD on HD - consulted nephrology - Dialysis #. Anemia of Chronic Disease #. DM II with hyperglycemia - Diabetic diet - Regular Insulin with sliding scale according to accucheck - HbA1c 6.6 in October 2016 #. CAD s/p Stents placement cont ASA/ Effient / Metoprolol/ Pravastatin # Elevated Troponin Level likely sec to ESRD/Pulm Edema Cardiology consulted- Dr Jani guillen cont ASA, BB, ALBERTINA , statin and Effient #. HTN - Metoprolol/ Enalapril #. DVT prophylaxis: patient on Sub Q Heparin Discharge Exam - Head Exam Head Exam: NORMAL INSPECTION - Eye Exam Eye Exam: EOMI Pupil Exam: NORMAL ACCOMODATION - ENT Exam ENT Exam: Mucous Membranes Moist, Normal External Ear Exam - Neck Exam Neck exam: Full Rom - Respiratory Exam Respiratory Exam: NORMAL BREATHING PATTERN. absent: Rales, Respiratory Distress - Cardiovascular Exam Cardiovascular Exam: REGULAR RHYTHM, +S1, +S2 - GI/Abdominal Exam GI & Abdominal Exam: Normal Bowel Sounds, Soft. absent: Tenderness - Extremities Exam Extremities exam: normal capillary refill, pedal edema (minimal pedal edema), pedal pulses present - Back Exam Back exam: FULL ROM. absent: CVA tenderness (L), CVA tenderness (R) - Neurological Exam Neurological exam: Alert, CN II-XII Intact, Oriented x3, Reflexes Normal - Psychiatric Exam Psychiatric exam: Normal Affect, Normal Mood - Skin Skin Exam: Dry, Normal Color, Warm Discharge Plan - Follow Up Plan Condition: GOOD Additional Instructions: ff up with PMD sadie cont TIW HD Referrals: Eric Nuñez MD [Staff Provider] -
[2017-02-23] MEDS ORDERED: Multivitamin Vitamin B Complex (Nephro-Vite) Tab PO SCH (09:00)
== END 2017-02-22 18:25 | disposition home or self-care (01) ==
LOC: H.ER 23:59 → INTOOBSV 02-21 00:18 → H.ERHOLD 02-21 00:18 → H.TEL 02-21 02:53
PROVIDERS: ADMIT Internal Medicine; ATTEND Internal Medicine
DX: J96.01 Acute respiratory failure with hypoxia (principal); I13.2 Hypertensive heart and chronic kidney disease with heart failure and with stage 5 chronic kidney disease, or end stage renal disease; N18.6 End stage renal disease; I50.9 Heart failure, unspecified; I25.10 Atherosclerotic heart disease of native coronary artery without angina pectoris; E11.22 Type 2 diabetes mellitus with diabetic chronic kidney disease; D63.1 Anemia in chronic kidney disease; E11.65 Type 2 diabetes mellitus with hyperglycemia; E66.09 Other obesity due to excess calories; Z68.36 Body mass index [BMI] 36.0-36.9, adult; F17.210 Nicotine dependence, cigarettes, uncomplicated; Z99.2 Dependence on renal dialysis; Z95.5 Presence of coronary angioplasty implant and graft; Z79.4 Long term (current) use of insulin; Z88.2 Allergy status to sulfonamides
CPT/HCPCS: 36415; 71010; 80048; 80053; 82948; 84100; 84484; 85025; 85027; 85610; 85730; 86705; 86706; 86803; 87340; 87804; 90935; 93005; 94660; 99284; G0378; J1644; J1940

== ENCOUNTER 2017-03-29 01:52 | Inpatient (IN) | payer MEDICARE ==
[2017-03-29 01:52] VITALS: BMI 47.0
--- NOTE | 2017-03-29 02:10 | ED PDOC ---
HPI: SOB/CHF/COPD Time Seen by Provider: 03/29/17 02:00 Chief Complaint (Nursing): Respiratory Distress Chief Complaint (Provider): SOB History Per: Patient, EMS History/Exam Limitations: no limitations Onset/Duration Of Symptoms: Hrs (2) Current Symptoms Are (Timing): Still Present Additional Complaint(s): 76yo male with PMHx including HTN, high cholesterol, CAD, CHF, chronic kidney disease, diabetes, coronary stent presents to the ED via EMS for eval of SOB x 2 hours. EMS reports that patient was blue and mottled when they arrived on scene and state they administered 20 of lasix and 3 of nitro. On arrival to ED, patient on CPAP and shows improvement in symptoms per EMS but still in severe respiratory distress. Patient denies pain or any other symptoms. Pt stated on BIPAP by respiratory in the ER Past Medical History Reviewed: Historical Data, Nursing Documentation, Vital Signs Vital Signs: Last Vital Signs Temp 97.5 F L 03/30/17 10:50 Pulse 65 03/30/17 09:00 Resp 20 03/30/17 09:00 BP 117/61 03/30/17 10:50 Pulse Ox 100 03/30/17 09:00 - Medical History PMH: CAD ([place]), CHF, Diabetes, HTN, Hypercholesterolemia, End Stage Renal Disease , Chronic Kidney Disease Denies: HIV, Kidney Stones - Surgical History Surgical History: Coronary Stent - Family History Family History: States: Hypertension - Social History Current smoker - smoking cessation education provided: No Alcohol: None Drugs: Denies - Home Medications Home Medications: Ambulatory Orders Medication Instructions Recorded Aspirin [Ecotrin] 81 mg PO DAILY 09/16/16 Calcium Acetate [Phoslo] 3 tab PO AC 09/16/16 Cinacalcet [Sensipar] 30 mg PO DAILY 09/16/16 Ergocalciferol (Vitamin D2) 50,000 iu PO QWK 09/16/16 [Vitamin D2] Insulin Glargine, Recombina 10 units SQ DAILY 09/16/16 [Lantus] Insulin Lispro [Humalog Kwikpen 4 units SQ TID 09/16/16 U-100] Metoprolol Succinate 25 mg PO DAILY 09/16/16 Omeprazole 40 mg PO HS 09/16/16 Prasugrel [Effient] 10 mg PO DAILY 09/16/16 Pravastatin Sodium 40 mg PO HS 09/16/16 - Allergies Allergies/Adverse Reactions: Allergies Allergy/AdvReac Type Severity Reaction Status Date / Time Sulfa (Sulfonamide Allergy PAIN Verified 03/29/17 01:58 Antibiotics) milk AdvReac NAUSEA Verified 03/29/17 01:58 Review of Systems ROS Statement: Except As Marked, All Systems Reviewed And Found Negative Constitutional: Positive for: Other (no pain ) Respiratory: Positive for: Shortness of Breath Physical Exam - Reviewed Nursing Documentation Reviewed: Yes Vital Signs Reviewed: Yes - Physical Exam Appears: Positive for: In Acute Distress (severe respiratory , tahcypneia, speaking but difficulty speaking in full sentences) Head Exam: Positive for: ATRAUMATIC, NORMAL INSPECTION, NORMOCEPHALIC Skin: Positive for: Normal Color, Warm, Dry Eye Exam: Positive for: Normal appearance, EOMI, PERRL ENT: Positive for: Normal ENT Inspection Neck: Positive for: Normal, Painless ROM, Supple Cardiovascular/Chest: Positive for: Tachycardia. Negative for: Murmur Respiratory: Positive for: Accessory Muscle Use, Respiratory Distress (severe ) Gastrointestinal/Abdominal: Positive for: Normal Exam, Soft. Negative for: Tenderness Back: Positive for: Normal Inspection Extremity: Positive for: Normal ROM, Pedal Edema (trace BLE edema ), Other (RUE fistula ) Neurologic/Psych: Positive for: Alert, Oriented - Laboratory Results Result Diagrams: 03/30/17 08:10 03/30/17 08:10 - ECG O2 Sat by Pulse Oximetry: 92 - Critical Care Total Time (In Min): 30 Medical Decision Making Medical Decision Makin: Impression: severe respiratory distress rule out pneumonia vs chf Plan: VBG EKG Labs CXR Lasix 40mg IVP BiPAP reassess cxr appears to show CHF. no pneumonia noted. lasix ordered. BUN CR eleavted, as per baseline 0345: On re-eval, patient is less tachypnic. CXR shows b/l cephalization consistent with acute CHF. Will admit to telemetry under Dr. Penaloza because patient's PCP is Dr. Nuñez whose patients are admitted to hospitalist service. Case discussed with Dr. Penaloza who accepted admission. Scribe Attestation: Documented by Yue Lindsay acting as a scribe for Delano Arredondo MD. Provider Scribe Attestation: All medical record entries made by the Scribe were at my direction and personally dictated by me. I have reviewed the chart and agree that the record accurately reflects my personal performance of the history, physical exam, medical decision making, and the department course for this patient. I have also personally directed, reviewed, and agree with the discharge instructions and disposition. Disposition - Clinical Impression Clinical Impression: CHF (congestive heart failure) - Patient ED Disposition Is Patient to be Admitted: Yes Discussed With DrShar: Andreas Penaloza Counseled Patient/Family Regarding: Studies Performed, Diagnosis - Disposition Disposition Time: 03:30 Condition: IMPROVED
[2017-03-29 02:18] LABS: VENOUS BLOOD GAS BASE EXCESS -1.5 mmol/L (0.0-2.0); VENOUS BLOOD GAS PCO2 68 mmHg (40-60); VENOUS BLOOD GAS PO2 18 mm/Hg (30-55); VENOUS BLOOD PH 7.22 (7.32-7.43)
[2017-03-29 03:08] LABS: BASO % 0.2 % (0.0-2.0); EOS # 0.3 K/uL (0.0-0.7); EOS % 2.2 % (0.0-4.0); HEMOGLOBIN 12.1 g/dL (12.0-18.0); LYMPH # 3.9 K/uL (1.0-4.3); LYMPH % 27.1 % (20.0-40.0); MEAN CELL VOLUME 89.1 fl (80.0-94.0); MEAN CORPUSCULAR HEMOGLOBIN 28.4 pg (27.0-31.0); MEAN CORPUSCULAR HGB CONC 31.8 g/dL (33.0-37.0); MEAN PLATELET VOLUME 8.5 fl (7.2-11.7); MONO # 0.8 K/uL (0.0-0.8); MONO % 5.7 % (0.0-10.0); NEUT # 9.4 K/uL (1.8-7.0); NEUT % 64.8 % (50.0-75.0); RBC 4.25 Mil/uL (4.40-5.90); RED CELL DISTRIBUTION WIDTH 17.1 % (11.5-14.5); WHITE BLOOD COUNT 14.5 K/uL (4.8-10.8)
[2017-03-29 03:15] LABS: ALBUMIN 4.4 g/dL (3.5-5.0)
[2017-03-29 03:19] LABS: ALB/GLOB RATIO 1.1 (1.0-2.1); CALCIUM 9.2 mg/dL (8.4-10.2)
--- NOTE | 2017-03-29 03:52 | CP.PCM.HP ---
History of Present Illness - History of Present Illness History of Present Illness: PCP: Tony Reyes MD Chief Complaint: SOB HPI: 76 years old male with hx of CAD, DM, CHF and ESRD on hemodialysis Wednesday, Wednesday, and Wednesday , last dialysed 03/27/17 , comes with sudden unset of severe SOB and respiratory distress 2 hrs prior to coming to the ED. EMS found the Mottled and cyanotic . They administered Nitro and IV Lasix. On arrival to the ED the patient was placed on CPAP and showed some improvement. Mild coughing , nausea nor vomits. No diarrhea nor dysuria. PMH; CAD ([place]), CHF, Diabetes, HTN, Hypercholesterolemia, End Stage Renal Disease on Hemodialysis M W F PSH; Right A-V fistula for dialysis; Coronary stent placement FH: HTN SH: Heavy smoker; No alcohol; No illegal drug use. Allergies: Sulfa and Milk Present on Admission - Present on Admission Any Indicators Present on Admission: Yes History of DVT/PE: No History of Uncontrolled Diabetes: Yes Urinary Catheter: No Decubitus Ulcer Present: No Review of Systems - Constitutional Constitutional: Anorexia. absent: Chills, Fever, Headache, Lethargy - EENT Eyes: Requires Corrective Lenses. absent: Diplopia, Floaters Ears: absent: Decreased Hearing, Ear Discharge, Ear Pain, Tinnitus Nose/Mouth/Throat: absent: Epistaxis, Nasal Congestion, Nasal Discharge, Nasal Obstruction, Nasal Trauma - Respiratory Respiratory: absent: Cough, Wheezing - Gastrointestinal Gastrointestinal: absent: Abdominal Pain, Constipation, Diarrhea, Nausea, Vomiting - Genitourinary Genitourinary: absent: Dysuria, Flank Pain, Hematuria, Pyuria Additional comments: Anuria - Musculoskeletal Musculoskeletal: Muscle Cramps. absent: Back Pain, Muscle Weakness Additional comments: Trace edema to both lower extremities - Integumentary Integumentary: absent: Skin Ulcer, Sores, Striae Additional comments: Boil with probable abscess at left interglutteal fold - Neurological Neurological: absent: Confusion, Focal Weakness, Headaches, Weakness - Psychiatric Psychiatric: Anxiety. absent: Depression, Hallucinations, Panic Attacks - Endocrine Endocrine: absent: Palpitations, Polydipsia, Polyphagia, Polyuria - Hematologic/Lymphatic Hematologic: absent: Easy Bleeding, Easy Bruising Past Patient History - Infectious Disease Hx of Infectious Diseases: None - Tetanus Immunizations Tetanus Immunization: Unknown - Past Medical History & Family History Past Medical History?: Yes - Past Social History Chewing Tobacco Use: No Cigar Use: No Alcohol: None Drugs: Denies Home Situation {Lives}: With Family - CARDIAC Hx Congestive Heart Failure: Yes Hx Hypercholesterolemia: Yes Hx Hypertension: Yes - PULMONARY Hx Respiratory Disorders: Yes - NEUROLOGICAL Hx Neurological Disorder: No - HEENT Hx HEENT Problems: Yes - RENAL Hx Chronic Kidney Disease: Yes Hx Kidney Stones: No - ENDOCRINE/METABOLIC Hx Endocrine Disorders: Yes - HEMATOLOGICAL/ONCOLOGICAL Hx Human Immunodeficiency Virus (HIV): No - INTEGUMENTARY Hx Dermatological Problems: Yes - MUSCULOSKELETAL/RHEUMATOLOGICAL Hx Musculoskeletal Disorders: No - GASTROINTESTINAL Hx Gastrointestinal Disorders: No - GENITOURINARY/GYNECOLOGICAL Hx Genitourinary Disorders: No - PSYCHIATRIC Hx Psychophysiologic Disorder: No - SURGICAL HISTORY Hx Coronary Stent: Yes - ANESTHESIA Hx Anesthesia: Yes Hx Anesthesia Reactions: No Hx Malignant Hyperthermia: No Meds Allergies/Adverse Reactions: Allergies Allergy/AdvReac Type Severity Reaction Status Date / Time Sulfa (Sulfonamide Allergy PAIN Verified 03/29/17 01:58 Antibiotics) milk AdvReac NAUSEA Verified 03/29/17 01:58 Physical Exam - Constitutional Appears: In Acute Distress - Head Exam Head Exam: absent: ATRAUMATIC, NORMAL INSPECTION, NORMOCEPHALIC - Eye Exam Eye Exam: absent: EOMI Pupil Exam: NORMAL ACCOMODATION, PERRL - ENT Exam ENT Exam: Mucous Membranes Moist, Normal Exam, Normal External Ear Exam, Normal Oropharynx - Neck Exam Neck exam: Positive for: Lymphadenopathy, Normal Inspection. Negative for: Meningismus, Tenderness - Respiratory Exam Respiratory Exam: absent: Rhonchi, Wheezes, Respiratory Distress - Cardiovascular Exam Cardiovascular Exam: REGULAR RHYTHM, JVD, RRR, +S1, +S2 - GI/Abdominal Exam Additional comments: Obese, soft nontender, distant bowel sounds, no viceromegalies, no guarding nor= rebound tenderness - Rectal Exam Rectal Exam: Deferred - Extremities Exam Extremities exam: Positive for: normal inspection. Negative for: full ROM - Back Exam Back exam: absent: CVA tenderness (L), CVA tenderness (R) Additional comments: left intergluteal raised dolan colored lesion - Neurological Exam Neurological exam: Alert, CN II-XII Intact, Oriented x3, Reflexes Normal - Psychiatric Exam Psychiatric exam: Normal Affect, Normal Mood - Skin Skin Exam: Dry, Intact, Normal Color, Warm Results - Vital Signs Recent Vital Signs: Last Vital Signs Temp Pulse 105 H 03/29/17 02:33 Resp 26 H 03/29/17 01:58 BP 163/102 H 03/29/17 01:58 Pulse Ox 92 L 03/29/17 03:51 - Labs Result Diagrams: 03/29/17 02:45 03/29/17 02:45 Labs: Laboratory Results - last 24 hr 03/29/17 03/29/17 03/29/17 01:56 02:10 02:45 WBC 14.5 H D RBC 4.25 L Hgb 12.1 Hct 37.9 MCV 89.1 MCH 28.4 MCHC 31.8 L RDW 17.1 H Plt Count 264 D MPV 8.5 Neut % (Auto) 64.8 Lymph % (Auto) 27.1 [place] % (Auto) 5.7 Eos % (Auto) 2.2 Baso % (Auto) 0.2 Neut # 9.4 H Lymph # 3.9 Pratt # 0.8 Eos # 0.3 Baso # 0.0 pO2 18 L VBG pH 7.22 L VBG pCO2 68 H* VBG HCO3 21.6 VBG Total CO2 29.9 H VBG O2 Sat (Calc) 33.2 L VBG Base Excess -1.5 L VBG Potassium 4.1 Sodium 141.0 Chloride 101.0 Glucose 245 H Lactate 3.1 H FiO2 100.0 Crit Value Called To Delano benjamin md Crit Value Called By 302 Crit Value Read Back Y Blood Gas Notified Time 217 Potassium Carbon Dioxide Anion Gap BUN Creatinine Est GFR ( Amer) Est GFR (Non-Af Amer) POC Glucose (mg/dL) 258 H Random Glucose Calcium Total Bilirubin AST ALT Alkaline Phosphatase Total Protein Albumin Globulin Albumin/Globulin Ratio Venous Blood Potassium 4.1 03/29/17 02:45 WBC RBC Hgb Hct MCV MCH MCHC RDW Plt Count MPV Neut % (Auto) Lymph % (Auto) [place] % (Auto) Eos % (Auto) Baso % (Auto) Neut # Lymph # Pratt # Eos # Baso # pO2 VBG pH VBG pCO2 VBG HCO3 VBG Total CO2 VBG O2 Sat (Calc) VBG Base Excess VBG Potassium Sodium 144 Chloride 97 L Glucose Lactate FiO2 Crit Value Called To Crit Value Called By Crit Value Read Back Blood Gas Notified Time Potassium 4.0 Carbon Dioxide 26 Anion Gap 25 H BUN 94 H Creatinine 12.0 H* D Est GFR ( Amer) 5 Est GFR (Non-Af Amer) 4 POC Glucose (mg/dL) Random Glucose 219 H Calcium 9.2 Total Bilirubin 0.5 AST 34 ALT 31 Alkaline Phosphatase 98 Total Protein 8.4 H Albumin 4.4 Globulin 4.0 H Albumin/Globulin Ratio 1.1 Venous Blood Potassium - EKG Data EKG comments: Sinus tachycardia with PVC - Imaging and Cardiology Chest x-ray Status: Image reviewed by me Additional comment: Bibasal interstitial infiltrate Assessment & Plan - Assessment and Plan (Free Text) Plan: 76 years old male with hx of CAD, DM, CHF and ESRD on hemodialysis Wednesday, Wednesday, and Wednesday , last dialysed 03/27/17 , comes with sudden unset of severe SOB and respiratory distress 2 hrs prior to coming to the ED. EMS found the Mottled and cyanotic . He was given lasix, Nitro and started on CPAP. #. Acute Hypercarbide Respiratory Distress caused by the volume overload - Respiratory and Metabolic Acidosis - Place patient on BIPAP 14/5 rate of 12 and Fio2 of 100% #. Acute CHF with Volume overload - No Lasix IV as pte is anuric - Dialysis to remove fluid - Metoprolol #. ESRD on HD - consult Dr Ortiz nephrology - Dialysis #. Anemia of Chronic Disease - follow Hb #. DM II with hyperglycemia - Diabetic diet - Regular Insulin with sliding scale according to accucheck - HbA1c 6.6 in October 2016 #. Leukocytosis reactive - Follow WBC #. CAD s/p Stents placement ASA/ Brilinta/ Metoprolol/ Pravastatin #. HTN - Metoprolol #. DVT prophylaxis: patient on Sub Q Heparin #. Code Status Full - Date & Time Date: 03/29/17 Time: 03:52
[2017-03-29 04:41] LABS: TROPONIN I 0.06 ng/mL (0.00-0.120)
[2017-03-29] MEDS ORDERED: Ergocalciferol 50,000 Intl Units Cap PO SCH (04:45)
[2017-03-29] MEDS: Insulin Lispro (humaLOG) 100 Units/ml Inj SC SCH ×4 (08:11→21:52)
[2017-03-29 08:58] LABS: BASO # 0.1 K/uL (0.0-0.2); BASO % 0.9 % (0.0-2.0); EOS # 0.1 K/uL (0.0-0.7); EOS % 0.9 % (0.0-4.0); HEMOGLOBIN 11.2 g/dL (12.0-18.0); LYMPH # 1.1 K/uL (1.0-4.3); LYMPH % 12.5 % (20.0-40.0); MEAN CELL VOLUME 88.8 fl (80.0-94.0); MEAN CORPUSCULAR HEMOGLOBIN 28.7 pg (27.0-31.0); MEAN CORPUSCULAR HGB CONC 32.3 g/dL (33.0-37.0); MEAN PLATELET VOLUME 8.4 fl (7.2-11.7); MONO # 0.5 K/uL (0.0-0.8); MONO % 5.8 % (0.0-10.0); NEUT # 6.9 K/uL (1.8-7.0); NEUT % 79.9 % (50.0-75.0); RBC 3.92 Mil/uL (4.40-5.90); RED CELL DISTRIBUTION WIDTH 16.3 % (11.5-14.5); WHITE BLOOD COUNT 8.6 K/uL (4.8-10.8)
[2017-03-29] MEDS: Pantoprazole 40 mg EC Tab PO SCH (08:58)
[2017-03-29] MEDS ORDERED: Metoprolol Succinate 25 mg XL Tab PO SCH (09:00)
--- NOTE | 2017-03-29 10:16 | CP.PCM.CON ---
History of Present Illness - History of Present Illness History of Present Illness: This patient who is 76 years old came to the emergency room complaining of shortness of breath difficulty breathing. He is known with end stage renal disease on maintenance hemodialysis Wednesday. He is scheduled to have dialysis today. Patient has previously multiple admissions regarding COPD and apparently congestive heart failure hypertension among other things. PMH; CAD ([place]), CHF, Diabetes, HTN, Hypercholesterolemia, End Stage Renal Disease on Hemodialysis M W F PSH; Right A-V fistula for dialysis; Coronary stent placement Review of Systems - Constitutional Constitutional: As Per HPI - EENT Eyes: As Per HPI - Cardiovascular Cardiovascular: Dyspnea, Edema, Orthopnea - Respiratory Respiratory: Cough, Dyspnea. absent: Hemoptysis - Gastrointestinal Gastrointestinal: absent: Abdominal Pain - Musculoskeletal Musculoskeletal: Muscle Weakness - Neurological Neurological: Abnormal Gait Past Patient History - Infectious Disease Hx of Infectious Diseases: None - Tetanus Immunizations Tetanus Immunization: Unknown - Past Medical History & Family History Past Medical History?: Yes - Past Social History Chewing Tobacco Use: No Cigar Use: No Alcohol: None Drugs: Denies Home Situation {Lives}: With Family - CARDIAC Hx Congestive Heart Failure: Yes Hx Hypercholesterolemia: Yes Hx Hypertension: Yes - PULMONARY Hx Respiratory Disorders: Yes - NEUROLOGICAL Hx Neurological Disorder: No - HEENT Hx HEENT Problems: Yes - RENAL Hx Chronic Kidney Disease: Yes Hx Kidney Stones: No - ENDOCRINE/METABOLIC Hx Endocrine Disorders: Yes - HEMATOLOGICAL/ONCOLOGICAL Hx Human Immunodeficiency Virus (HIV): No - INTEGUMENTARY Hx Dermatological Problems: Yes - MUSCULOSKELETAL/RHEUMATOLOGICAL Hx Musculoskeletal Disorders: No - GASTROINTESTINAL Hx Gastrointestinal Disorders: No - GENITOURINARY/GYNECOLOGICAL Hx Genitourinary Disorders: No - PSYCHIATRIC Hx Psychophysiologic Disorder: No - SURGICAL HISTORY Hx Coronary Stent: Yes - ANESTHESIA Hx Anesthesia: Yes Hx Anesthesia Reactions: No Hx Malignant Hyperthermia: No Meds Allergies/Adverse Reactions: Allergies Allergy/AdvReac Type Severity Reaction Status Date / Time Sulfa (Sulfonamide Allergy PAIN Verified 03/29/17 01:58 Antibiotics) milk AdvReac NAUSEA Verified 03/29/17 01:58 - Medications Medications: Current Medications Aspirin (Ecotrin) 81 mg PO DAILY RIA Last Admin: 03/29/17 08:58 Dose: 81 mg Calcium Acetate (Phoslo) 2,001 mg PO AC RIA Last Admin: 03/29/17 08:15 Dose: 2,001 mg Cinacalcet (Sensipar) 30 mg PO DAILY [facility] Last Admin: 03/29/17 09:00 Dose: 30 mg Ergocalciferol (Drisdol 50,000 Intl Units Cap) 1 cap PO QWK [facility] Heparin Sodium (Porcine) (Heparin) 5,000 units SC Q8 [facility] PRN Reason: Protocol Last Admin: 03/29/17 08:59 Dose: 5,000 units Home Med (Prasugrel [Effient]) 10 mg PO DAILY [facility] Insulin Detemir (Levemir) 10 units SC HS [facility] Insulin Human Lispro (Humalog) 0 units SC ACHS [facility] PRN Reason: Protocol Last Admin: 03/29/17 08:11 Dose: Not Given Metoprolol Succinate (Toprol Xl) 25 mg PO DAILY [facility] Last Admin: 03/29/17 08:59 Dose: Not Given Pantoprazole Sodium (Protonix Ec Tab) 40 mg PO DAILY [facility] Last Admin: 03/29/17 08:58 Dose: 40 mg Pravastatin Sodium (Pravachol) 40 mg PO [facility] Physical Exam - Constitutional Appears: No Acute Distress - ENT Exam ENT Exam: Mucous Membranes Moist - Neck Exam Neck exam: Negative for: Lymphadenopathy - Respiratory Exam Respiratory Exam: Rhonchi. absent: Chest Wall Tenderness - Cardiovascular Exam Cardiovascular Exam: absent: JVD, Rubs - GI/Abdominal Exam GI & Abdominal Exam: Normal Bowel Sounds - Extremities Exam Extremities exam: Negative for: calf tenderness - Back Exam Back exam: absent: CVA tenderness (L), CVA tenderness (R) - Neurological Exam Neurological exam: Alert Results - Vital Signs Recent Vital Signs: Last Vital Signs Temp 97.5 F L 03/29/17 07:58 Pulse 60 03/29/17 08:59 Resp 20 03/29/17 07:58 BP 130/75 03/29/17 07:58 Pulse Ox 100 03/29/17 07:58 - Labs Result Diagrams: 03/29/17 08:52 03/29/17 02:45 Labs: Laboratory Results - last 24 hr 03/29/17 03/29/17 03/29/17 07:14 08:52 08:52 WBC 8.6 RBC 3.92 L Hgb 11.2 L Hct 34.8 L MCV 88.8 MCH 28.7 MCHC 32.3 L RDW 16.3 H Plt Count 145 D MPV 8.4 Neut % (Auto) 79.9 H Lymph % (Auto) 12.5 L [place] % (Auto) 5.8 Eos % (Auto) 0.9 Baso % (Auto) 0.9 Neut # 6.9 Lymph # 1.1 [place] # 0.5 Eos # 0.1 Baso # 0.1 POC Glucose (mg/dL) 88 Troponin I 0.2280 H* Assessment & Plan (1) CKD (chronic kidney disease) stage V requiring chronic dialysis Assessment and Plan: Patient with end stage renal disease on maintenance hemodialysis Wednesday Admitted with shortness of breath difficulty breathing patient receiving oxygen He was given Lasix in the emergency room Hemodialysis called to be done as soon as possible Consent was taken Patient has been on dialysis for about 6 years Status: Acute
--- NOTE | 2017-03-29 13:46 | RAD ---
PROCEDURE: CHEST RADIOGRAPH, 1 VIEW HISTORY: fluid overload COMPARISON: Comparison made with prior study 02/21/2017 FINDINGS: LUNGS: Vascular congestive changes -pulmonary edema with bilateral lower lobe alveolar-type infiltrates consistent with this patient's history of fluid overload. Questionable tiny bilateral effusions. PLEURA: As above. No apparent pneumothorax. CARDIOVASCULAR: Heart appears upper limits of normal/ borderline enlarged. Aorta is slightly ectatic and uncoiled. Re- demonstrated is a endovascular stent right paratracheal region extending laterally over the proximal right clavicle. OSSEOUS STRUCTURES: No significant abnormalities. VISUALIZED UPPER ABDOMEN: Normal. OTHER FINDINGS: None. IMPRESSION: Vascular congestive changes -pulmonary edema with bilateral lower lobe alveolar-type infiltrates consistent with this patient's history of fluid overload. Questionable tiny bilateral effusions.
[2017-03-29 16:39] LABS: ABG ALLEN TEST YES; ARTERIAL BLOOD GAS HCO3 29.4 mmol/L (21-28); ARTERIAL BLOOD GAS HEMOGLOBIN 13.5 g/dL (11.7-17.4); ARTERIAL BLOOD GAS O2 CAPACITY 19.3 mL/dL (16-24); ARTERIAL BLOOD GAS O2 CONTENT 19.3 ML/dL (15-23); ARTERIAL BLOOD GAS PCO2 35 mm/Hg (35-45); ARTERIAL BLOOD GAS PH 7.52 (7.35-7.45); ARTERIAL BLOOD GAS PO2 318 mm/Hg (80-100); ARTERIAL BLOOD GAS TCO2 29.7 mmol/L (22-28)
[2017-03-29] MEDS: Metoprolol Succinate 25 mg XL Tab PO SCH (16:54)
[2017-03-29] MEDS ORDERED: Magnesium Hydroxide Susp 30 ml UD PO PRN (17:37)
--- NOTE | 2017-03-29 18:22 | CON ---
DATE: 03/29/2017 HISTORY OF PRESENT ILLNESS: The patient is a 76-year-old male who has a significant ____ disease on hemodialysis for the past 8 years, history of peripheral vascular disease, status post endovascular i ntervention on the right leg last year. The patient does not recall the interventional person or the facility where he underwent the procedure. The patient presents because of shortness of breath and was described to be cyanotic upon his presentation to the Emergency Room. The patient denies any silvia st pain and denies any history of coronary intervention in the past. The patient does not recall see ing a sales developer as an outpatient. The patient had just completed his hemodialysis and his shortne ss of breath has improved; however, he is still requiring BiPAP. SOCIAL HISTORY: Former smoker. MEDICATIONS: Aspirin 81 mg once a day, heparin 5000 units q. 8 hours, Levemir 10 units subcutaneousl y at bedtime, PhosLo 1 tablet once a day, Pravachol 40 mg once a day, Protonix 40 mg p.o. once a day, Toprol-XL 25 mg once a day. REVIEW OF SYSTEMS: No fever or chills. No dizziness or syncope. PHYSICAL EXAMINATION: GENERAL: The patient is an elderly male who is currently on BiPAP, mildly tachypneic. VITAL SIGNS: Blood pressure 148/69, heart rate 92, temperature 97.3, respirations 20. HEENT: Facial edema. NECK: No JVD. CHEST: Absent breath sounds over the bases. HEART: S1, S2 irregular. ABDOMEN: Soft. EXTREMITIES: 2+ pitting edema. EKG revealed sinus rhythm with marked sinus arrhythmia, nonspecific lateral T-wave changes. The secon d EKG revealed sinus tachycardia at 112 beats per minute, again nonspecific lateral T-wave changes. Although the computer reading consider lateral ischemia. LABORATORIES: Hemoglobin and hematocrit 11.2 and 34.8. White count and platelet count 8.6 and 145,0 00. SMA-7: Sodium 144, potassium 4.____, chloride 97, CO2 of 26, glucose 219, BUN 94, creatinine 12 .0. First troponin is negative, second troponin 0.228. ProBNP is 55,900. Chest x-ray could not be opened on the ____ database. However, the official report revealed vascular congestive changes/pulmo nary edema with bilateral lower lobe alveolar type infiltrate consistent with volume overload. An ec hocardiogram performed in October of this year revealed an ejection fraction in the range of 50% -55% . Cardiac catheterization performed in October of this year by Dr. Yates reported severe 2-vessel coronary artery disease with moderate ventricular dysfunction with successful PCI to the LAD and cir cumflex with drug-eluting stents. The patient was placed on Brilinta at that time. Ejection fractio n was estimated to be 40% at that time. ASSESSMENT: 1. Exacerbation of congestive heart failure. 2. Non-ST elevation myocardial infarction. 3. Coronary artery disease, status post 2-vessel coronary stenting in October of this year. RECOMMENDATIONS: Continue Toprol-XL 25 mg daily, subcutaneous heparin 5000 units q. 8 hours, aspirin 81 mg once a day. Start Brilinta 90 mg twice a day. I will contact Dr. Yates and offer him to continue the care of the patient. As per the patient hi mself, he was not aware of any sales developer until the time of dictating this report where I found the cardiac catheterization and PCI report going back to October of this year where the procedure was pe rformed at [facility]. Arturo Moon MD cc: [id number] TT: 03/29/2017 18:22:06 Confirmation # [id number] Dictation # [id number] arnie
[2017-03-29] MEDS: Pravastatin Sodium 40 MG TAB PO SCH (21:53)
[2017-03-29] MEDS: Insulin Detemir 100 Units/ml Inj SC SCH (21:54)
--- NOTE | 2017-03-30 00:01 | CARD ---
APPROVED REPORT EKG Measurement Heart [id number] MS [id number] [id number] <Conclusion> Sinus rhythm with marked sinus arrhythmia T wave abnormality, consider lateral ischemia Prolonged QT Abnormal ECG
--- NOTE | 2017-03-30 00:11 | CARD ---
APPROVED REPORT EKG Measurement Heart [id number] <Conclusion> Sinus tachycardia with premature supraventricular complexes Possible Left atrial enlargement T wave abnormality, consider lateral ischemia Abnormal ECG
[2017-03-30] MEDS: Insulin Lispro (humaLOG) 100 Units/ml Inj SC SCH ×4 (06:48→22:00)
[2017-03-30] MEDS ORDERED: Heparin 25,000units in D5W 25,000 UNITS/250 ML BAG IV SCH ×2 (08:30→13:00)
[2017-03-30 08:55] LABS: HEMOGLOBIN 11.3 g/dL (12.0-18.0); MEAN CELL VOLUME 89.4 fl (80.0-94.0); MEAN CORPUSCULAR HEMOGLOBIN 28.6 pg (27.0-31.0); MEAN CORPUSCULAR HGB CONC 31.9 g/dL (33.0-37.0); RBC 3.96 Mil/uL (4.40-5.90); RED CELL DISTRIBUTION WIDTH 16.6 % (11.5-14.5); WHITE BLOOD COUNT 7.7 K/uL (4.8-10.8)
[2017-03-30] MEDS: Pantoprazole 40 mg EC Tab PO SCH (08:55)
[2017-03-30 09:06] LABS: CALCIUM 9.2 mg/dL (8.4-10.2)
[2017-03-30 09:29] LABS: TROPONIN I 6.54 ng/mL (0.00-0.120)
--- NOTE | 2017-03-30 10:40 | PQF CHF ---
This form is a permanent part of the medical record 03/30/17 Dr Mckinney, After workup would you please clarify the type of CHF. Patient with a history of ESRD on Hemodialysis and CHF. Admitted with SOB. EMS states the patient was blue and mottled when they arrived on the scene . Lasix and Nitro given in the field. Placed on Bipap in the ER. CXR with vascular congestive changes, pulmonary edema with infiltrates. BNP 55,900. Stat dialysis. Echo pending results Clarification of your documentation is requested to better reflect the severity of illness and intensity of treatment of your patient. Indicators present [x] Diagnosis of CHF and/or history of CHF [x] BNP > 200 [] Imaging Finding of Pulmonary Edema /Pleural Effusions [X] Fluid/Volume Overload [] Pitting edema [] Ejection Fraction < 40% (Indicative of Systolic Heart Failure) [] Ejection Fraction > 40% (Indicative of Diastolic Heart Failure) [] Dyspnea / Orthopenea / Paroxysmal Nocturnal Dyspnea [] Other: Location in the medical record that reflects the above clinical findings: [] Treatment Provided: [] PHYSICIAN'S RESPONSE Based on your medical judgment of the clinical indicators outlined above, are you treating this patient for a known or suspected: [] Acute CHF [] Systolic [] Diastolic [] Combined [] Chronic CHF [] Systolic [] Diastolic [] Combined [] Acute on Chronic CHF []Systolic [] Diastolic [] Combined [] CHF due hypertension [] Acute systolic []Chronic systolic [] Acute /chronic systolic [X] Other, please indicate: CHF DUE TO ESRD, PT IS ANURIC. ] [] If Unable to Determine, please check the box, sign and date. Present On Admission (POA) Indicator: [X] Present at the time of admission [] Not present at the time of admission [] Clinically Undetermined In responding to this query, please exercise your independent professional judgment. The fact that a question is asked does not imply that any particular answer is desired or expected. Thank you for your clarification on this documentation. If you have any questions please call:extension [phone] Medical Records Dept * Thank you, Megan Minaya RN CDMP [facility]
--- NOTE | 2017-03-30 10:51 | PQF RESP ---
This form is a permanent part of the medical record 03/30/17 Dr Perlita Valles, Would you please clarify if there is an associated diagnosis to go along with the respiratory findings: Patient with a history of ESRD on Hemodialysis and CHF. Admitted with SOB. EMS states the patient was blue and mottled when they arrived on the scene . Lasix and Nitro given in the field. Documentation by the ER MD of severe respiratory distress with accessory muscle use and placed on Bipap in the ER. Respirations 26. CXR with vascular congestive changes, pulmonary edema with infiltrates. BNP 55,900. Stat dialysis. Echo pending results. Clarification of your documentation is requested to better reflect the severity of illness and intensity of treatment of your patient. Indicators present [] Use of Home Oxygen [] Respiratory rate > 28 or <8/min (Labored respirations) [] PCO2 > 50 mm Hg or (Hypercapnia) (somnolence) [] PaO2 < 60 mm Hg or Hypoxemia (confusion) [] ABG blood gas pH < 7.35 [] SpO2 < 90% sat on Room Air [x] Cyanosis in the field [x] Unable to Speak in Full Sentences in the field [x] Use of Accessory Muscles in the ER [] Wheezing [] Other: [] Location in the medical record that reflects the above clinical findings: [] Treatment Provided: [x] PHYSICIAN'S RESPONSE Based on your medical judgment of the clinical indicators outlined above, are you treating this patient for a known or suspected: [X] Acute Respiratory Failure (hypoxia or hypercapnia) SUSPECTED HYPOXIA IN FIELD, HYPOXIA IN ER. [] Chronic Respiratory Failure (hypoxia or hypercapnia) [] Acute on Chronic Respiratory Failure (hypoxia or hypercapnia) [] Hypoxemia please specify ACUTE, CHRONIC or ACUTE on CHRONIC [] Acute Respiratory Distress [] Other [] [] If unable to determine, please check the box, sign and date. Present On Admission (POA) Indicator: [X] Present at the time of admission [] Not present at the time of admission [] Clinically Undetermined In responding to this query, please exercise your independent professional judgment. The fact that a question is asked does not imply that any particular answer is desired or expected. Thank you for your clarification on this documentation. If you have any questions please call:extension [phone] Medical Records Dept * Thank you, Megan Minaya RN [facility] Chronic Respiratory Failure Description: Respiratory failure is a syndrome in which the respiratory system fails in one or both of its gas exchange functions: oxygenation and carbon dioxide elimination. In theory, respiratory failure is defined as a Pa02 value of <60 mm/Hg or a PaC02 of >50 mm/Hg. However, these values may be affected by renal compensation. Respiratory failure may be acute or chronic. While acute respiratory failure is characterized by life-threatening derangement in arterial blood gases and acid-base balance, the manifestations of chronic respiratory failure are less dramatic and may not be as readily apparent. Classifications: Respiratory failure may be classified as hypoxemic (usually characterized by Pa02 of <60 mm/Hg) or hypercapnic (usually characterized by PaC02 >50 mm/Hg) and either may be acute or chronic. Chronic hypercapnic respiratory failure develops over time and allows for renal compensation and an increase in bicarbonate concentration; therefore the pH is usually only slightly decreased. The distinction between acute and chronic hypoxemic respiratory failure cannot readily be made on the basis of ABGs; the clinical markers of chronic hypoxemia, such as polythycemia or cor pulmonale suggest a long standing disorder (chronic hypoxemic respiratory failure). Clinical Indicators: dyspnea at rest or "chronic" dyspnea, concomitant conditions such as polycythemia or cor pulmonale, requirement for continuous oxygen support, forced expiratory volume in one second (FEV1) of 49 or less, pursed lip breathing, "barrel" chest, hyperinflation by CXR, muscle wasting, malnutrition/obesity, poor exercise capacity, peripheral edema, description as a "blue bloater" (usually associated with chronic, obstructive bronchitis) or "pink puffer" (usually associated with emphysema) Risks: Chronic Hypoxemic Respiratory Failure - COPD, pulmonary fibrosis, asthma , pulmonary arterial hypertension, granulomatous lung diseases, congenital heart disease, bronchiectasis, kyphoscoliosis, obesity; Chronic Hypercapnic Respiratory Failure - COPD, severe asthma, myasthenia gravis, polyneuropathy, polio, head and cervical spine injuries, obesity hypoventilation syndrome. Treatment: supplemental oxygen, bronchodilators, corticosteroids, adequate nutrition, lung transplant References: Am. J. Respir. Crit. Care Med. "Global Strategy for the Diagnosis, Management and Prevention of COPD: GOLD Exectuive Summary," Lester Zapata Anzueto - 2007; Proceedings of the [place] [employer] "Mechanisms and Measurements of Dyspnea in COPD," Neli - 2006; WebMD; Respiratory Failure, Victoriano Lisa MD - 04/2006; Flaco's Principles of Internal Medicine, 17th edition. Acute Respiratory Failure Acute Respiratory Failure indicators include: ~Respirations >28 ~Air hunger ~Use of accessory muscles of respiration ~Inability to speak in full sentences Cyanosis ~Pulse ox <90% RA or <95% on O2 pH <7.35 or >7.45 ~pO2 < 60 mm Hg (or 10mm below COPD patient's baseline) ~pCO2 >50mm Hg (or 10mm above COPD patient's baseline) "Respiratory failure may be assigned as a principal diagnosis when it is the condition established after study to be chiefly responsible for occasioning admission to the hospital. The fact that the respiratory failure was managed without intubation and mechanical ventilation does not preclude its use." [facility], 3rd Qtr., 1988, p. 7 MTDD
[2017-03-30 12:07] LABS: INR 1.1 (0.9-1.2); PARTIAL THROMBOPLASTIN TIME 29.7 Seconds (25.6-37.1)
--- NOTE | 2017-03-30 13:13 | CP.PCM.PN ---
Subjective - Date & Time of Evaluation Date of Evaluation: 03/30/17 Time of Evaluation: 13:11 - Subjective Subjective: Patient is awake in bed Feels much better Less shortness of breath Appetite is good Objective - Vital Signs/Intake and Output Vital Signs (last 24 hours): Temp Pulse Resp BP Pulse Ox 97.1 F L 70 20 120/61 100 03/30/17 12:05 03/30/17 12:05 03/30/17 12:05 03/30/17 12:05 03/30/17 12:05 Intake and Output: 03/30/17 03/30/17 06:59 18:59 Intake Total 150 Output Total 0 Balance 150 - Medications Medications: Current Medications Aspirin (Ecotrin) 81 mg PO DAILY [facility] Last Admin: 03/30/17 08:54 Dose: 81 mg Calcium Acetate (Phoslo) 2,001 mg PO AC [facility] Last Admin: 03/30/17 12:10 Dose: 2,001 mg Cinacalcet (Sensipar) 30 mg PO DAILY [facility] Last Admin: 03/30/17 08:55 Dose: 30 mg Ergocalciferol (Drisdol 50,000 Intl Units Cap) 1 cap PO QWK [facility] Heparin Sodium/Dextrose (Heparin 25,000 Units/250ml In D5w) 25,000 units in 250 mls @ 10 mls/hr IV .Q24H [facility] PRN Reason: Protocol Insulin Detemir (Levemir) 10 units SC HS [facility] Last Admin: 03/29/17 21:54 Dose: 10 units Insulin Human Lispro (Humalog) 0 units SC ACHS [facility] PRN Reason: Protocol Last Admin: 03/30/17 12:09 Dose: 1 u Magnesium Hydroxide (Milk Of Magnesia) 30 ml PO DAILY PRN PRN Reason: Constipation Last Admin: 03/29/17 18:16 Dose: 30 ml Metoprolol Succinate (Toprol Xl) 25 mg PO DAILY@1700 [facility] Last Admin: 03/29/17 16:54 Dose: 25 mg Pantoprazole Sodium (Protonix Ec Tab) 40 mg PO DAILY [facility] Last Admin: 03/30/17 08:55 Dose: 40 mg Pravastatin Sodium (Pravachol) 40 mg PO HS [facility] Last Admin: 03/29/17 21:53 Dose: 40 mg Ticagrelor (Brilinta) 90 mg PO BID [facility] Last Admin: 03/30/17 08:54 Dose: 90 mg - Labs Labs: 03/30/17 08:10 03/30/17 08:10 PT 12.0 Seconds (9.8-13.1) 03/30/17 11:12 INR 1.1 (0.9-1.2) 03/30/17 11:12 APTT 29.7 Seconds (25.6-37.1) 03/30/17 11:12 - Constitutional Appears: No Acute Distress - ENT Exam ENT Exam: Mucous Membranes Moist - Respiratory Exam Respiratory Exam: NORMAL BREATHING PATTERN - Cardiovascular Exam Cardiovascular Exam: absent: JVD, Rubs - GI/Abdominal Exam GI & Abdominal Exam: Soft, Normal Bowel Sounds - Extremities Exam Extremities Exam: absent: Calf Tenderness - Back Exam Back Exam: absent: CVA tenderness (L), CVA tenderness (R) - Neurological Exam Neurological Exam: Alert Assessment and Plan (1) CKD (chronic kidney disease) stage V requiring chronic dialysis Assessment & Plan: End stage renal disease patient completed hemodialysis yesterday And he is doing much better Continue hemodialysis Wednesday And as per primary team Status: Acute
--- NOTE | 2017-03-30 14:11 | CP.PCM.PN ---
Subjective - Date & Time of Evaluation Date of Evaluation: 03/30/17 Time of Evaluation: 14:08 - Subjective Subjective: seen examined at bedisde this morning denies any chest pain, dyspnea is markedly improved breathing comfortably, no increased work of breathing troponin elevated 2.64, repeat EKG showed T wave inversions lateral leads, flattening inferior leads pt hx of 2 JACKI LAD, LCx 6 months ago. Heparin bolus and drip started, no active chest pain pt already on BB, brillinta, asa, statin. Echo ordered. Discussed with Dr. Yates Objective - Vital Signs/Intake and Output Vital Signs (last 24 hours): Temp Pulse Resp BP Pulse Ox 97.1 F L 70 20 120/61 100 03/30/17 12:05 03/30/17 12:05 03/30/17 12:05 03/30/17 12:05 03/30/17 12:05 Intake and Output: 03/30/17 03/30/17 06:59 18:59 Intake Total 150 Output Total 0 Balance 150 - Medications Medications: Current Medications Aspirin (Ecotrin) 81 mg PO DAILY [facility] Last Admin: 03/30/17 08:54 Dose: 81 mg Calcium Acetate (Phoslo) 2,001 mg PO AC [facility] Last Admin: 03/30/17 12:10 Dose: 2,001 mg Cinacalcet (Sensipar) 30 mg PO DAILY [facility] Last Admin: 03/30/17 08:55 Dose: 30 mg Ergocalciferol (Drisdol 50,000 Intl Units Cap) 1 cap PO QWK [facility] Heparin Sodium/Dextrose (Heparin 25,000 Units/250ml In D5w) 25,000 units in 250 mls @ 10 mls/hr IV .Q24H [facility] PRN Reason: Protocol Last Admin: 03/30/17 13:24 Dose: 10 mls/hr Insulin Detemir (Levemir) 10 units SC HS [facility] Last Admin: 03/29/17 21:54 Dose: 10 units Insulin Human Lispro (Humalog) 0 units SC ACHS [facility] PRN Reason: Protocol Last Admin: 03/30/17 12:09 Dose: 1 u Magnesium Hydroxide (Milk Of Magnesia) 30 ml PO DAILY PRN PRN Reason: Constipation Last Admin: 03/29/17 18:16 Dose: 30 ml Metoprolol Succinate (Toprol Xl) 25 mg PO DAILY@1700 [facility] Last Admin: 03/29/17 16:54 Dose: 25 mg Pantoprazole Sodium (Protonix Ec Tab) 40 mg PO DAILY [facility] Last Admin: 03/30/17 08:55 Dose: 40 mg Pravastatin Sodium (Pravachol) 40 mg PO HS [facility] Last Admin: 03/29/17 21:53 Dose: 40 mg Ticagrelor (Brilinta) 90 mg PO BID [facility] Last Admin: 03/30/17 08:54 Dose: 90 mg - Labs Labs: 03/30/17 08:10 03/30/17 08:10 PT 12.0 Seconds (9.8-13.1) 03/30/17 11:12 INR 1.1 (0.9-1.2) 03/30/17 11:12 APTT 29.7 Seconds (25.6-37.1) 03/30/17 11:12 - Constitutional Appears: Non-toxic, No Acute Distress - Head Exam Head Exam: ATRAUMATIC, NORMOCEPHALIC - Eye Exam Eye Exam: EOMI, Normal appearance, PERRL Pupil Exam: NORMAL ACCOMODATION - Respiratory Exam Respiratory Exam: Clear to Ausculation Bilateral, NORMAL BREATHING PATTERN - Cardiovascular Exam Cardiovascular Exam: RRR, +S1, +S2 - GI/Abdominal Exam GI & Abdominal Exam: Soft, Normal Bowel Sounds. absent: Tenderness, Mass - Extremities Exam Extremities Exam: Normal Capillary Refill. absent: Calf Tenderness - Back Exam Back Exam: absent: CVA tenderness (L), CVA tenderness (R) - Neurological Exam Neurological Exam: Alert, Awake - Psychiatric Exam Psychiatric exam: Normal Affect, Normal Mood - Skin Skin Exam: Dry, Warm Assessment and Plan - Assessment and Plan (Free Text) Plan: 76 years old male with hx of CAD 2 JACKI 6 months ago, DM, CHF and ESRD on hemodialysis Wednesday, Wednesday, and Wednesday, last dialysed 03/27/17, presented with sudden unset of severe SOB and respiratory distress 2 hrs prior to arrival to ED. EMS found pt mottled and cyanotic. They administered Nitro and IV Lasix. On arrival to the ED the patient was placed on CPAP and showed some improvement. Mild coughing, nausea nor vomits. No diarrhea nor dysuria. Patient tolerated HD well on first day of admission, volume overload improved. Troponin was found to be elevated, repeat EKG showed T wave inversions suggesting ischemia. Heparin bolus and drip started for NSTEMI. 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 NSTEMI no active chest pain troponin elevated 2.64, repeat EKG showed T wave inversions lateral leads, flattening inferior leads Cardiac enzymes 6.54, 6.95 pt hx of 2 JACKI LAD, LCx 6 months ago. Heparin bolus and drip started, no active chest pain pt already on BB, brillinta, asa, statin. Echo ordered. Discussed with Dr. Yates HD stable Acute Hypercarbic Respiratory Insufficiency secondary to pulmonary vascular congestion Acute on chronic diastolic CHF pt is anuric, HD for volume overload. clinically improved awaiting ECHO today to reevaluate cardiac function ESRD on HD MWF Dr. Ortiz on consult appreciated and followed HD [facility] DM Diabetic diet accuchecks with coverage HbA1c 6.16 Oct 2016 CAD 2 JACKI LAD, LCx [address] Yates cont Brillinta, ASA, Metoprolol, Pravastatin HTN cont Metoprolol VTE ppx ON HEPARIN DRIP FOR NSTEMI
--- NOTE | 2017-03-30 15:58 | CARD ---
APPROVED REPORT EXAM: Two-dimensional and M-mode echocardiogram with Doppler, color Doppler with contrast. Other Information Quality : AverageRhythm : NSR INDICATION Non STEMI Echo Enhancing Agent Indication: Endocardial border delineation Agent/Amount Used: Definity 2D DIMENSIONS IVSd0.86 (0.7-1.1cm)LVDd6.33 (3.9-5.9cm) LVOT Diameter2.18 (1.8-2.4cm)PWd0.66 (0.7-1.1cm) IVSs1.17 (0.8-1.2cm)LVDs5.27 (2.5-4.0cm) FS (%) 16.7 %PWs0.99 (0.8-1.2cm) M-Mode DIMENSIONS Left Atrium (MM)5.04 (2.5-4.0cm)Aortic Root3.35 (2.2-3.7cm) Aortic Cusp Exc.2.06 (1.5-2.0cm) Aortic Valve AoV Peak Zbqedpwi949.9cm/sAoV VTI32.7cmAO Peak GR.7mmHg LVOT Peak Kxddiaio73.4cm/sLVOT VTI22.26cmAO Mean GR.4mmHg FRANK (VMAX)0.18ec9KYN (VTI)0.96cm2 Mitral Valve MV E Zhjbhwjm123.6cm/sMV DECEL [id number] A Tchirtrt965.2cm/s MV HCS14wyU/A ratio0.9MVA (PHT)3.70cm2 TDI E/Lateral E'0.0E/Medial E'0.0 LEFT VENTRICLE The Left Ventricle is mildly dilated. There is borderline concentric left ventricular hypertrophy. The systolic function is moderately to severely impaired. The Ejection Fraction is 35-40%. Apical hypokinesis Transmitral Doppler flow pattern is Grade I-abnormal relaxation pattern. No left ventricle thrombus noted on this study. RIGHT VENTRICLE The right ventricle is normal size. There is normal right ventricular wall thickness. The right ventricular systolic function is normal. ATRIA The left atrium is moderately dilated. The right atrium size is normal. AORTIC VALVE The aortic valve is not well visualized. No aortic regurgitation is present. There is trace valvular aortic stenosis. MITRAL VALVE The mitral valve is not well visualized. There is no mitral valve stenosis. There is no mitral valve regurgitation noted. TRICUSPID VALVE The tricuspid valve is normal in structure and function. There is no tricuspid valve regurgitation noted. PULMONIC VALVE The pulmonary valve is normal in structure and function. There is no pulmonic valvular regurgitation. GREAT VESSELS The aortic root is normal in size. The IVC is normal in size and collapses >50% with inspiration. PERICARDIAL EFFUSION The pericardium appears normal. <Conclusion> The Left Ventricle is mildly dilated. There is borderline concentric left ventricular hypertrophy. The systolic function is moderately to severely impaired. The Ejection Fraction is 35-40%. Apical hypokinesis Transmitral Doppler flow pattern is Grade I-abnormal relaxation pattern. No left ventricle thrombus noted on this study.
--- NOTE | 2017-03-30 17:31 | CARD ---
APPROVED REPORT EKG Measurement Heart [id number] <Conclusion> Sinus rhythm with marked sinus arrhythmia T wave abnormality, consider anterolateral ischemia Prolonged QT Abnormal ECG
--- NOTE | 2017-03-30 17:41 | CARD ---
APPROVED REPORT EKG Measurement Heart [id number] CT [id number] <Conclusion> Normal sinus rhythm Possible Left atrial enlargement ST & T wave abnormality, consider anterolateral ischemia Prolonged QT Abnormal ECG
[2017-03-30] MEDS: Metoprolol Succinate 25 mg XL Tab PO SCH (17:45)
[2017-03-30 21:39] LABS: HEPATITIS B SURFACE AG NEGATIVE (NEGATIVE)
--- NOTE | 2017-03-30 22:22 | CP.PCM.PN ---
Subjective - Date & Time of Evaluation Date of Evaluation: 03/30/17 Time of Evaluation: 19:00 - Subjective Subjective: patient has no dyspnea. states he has not been taking antiplatelet therapy. no chest pain Objective - Vital Signs/Intake and Output Vital Signs (last 24 hours): Temp Pulse Resp BP Pulse Ox 97.2 F L 69 16 126/56 L 100 03/30/17 20:24 03/30/17 20:24 03/30/17 20:24 03/30/17 20:24 03/30/17 20:24 - Medications Medications: Current Medications Aspirin (Ecotrin) 81 mg PO DAILY [facility] Last Admin: 03/30/17 08:54 Dose: 81 mg Calcium Acetate (Phoslo) 2,001 mg PO AC [facility] Last Admin: 03/30/17 17:44 Dose: 2,001 mg Cinacalcet (Sensipar) 30 mg PO DAILY [facility] Last Admin: 03/30/17 08:55 Dose: 30 mg Ergocalciferol (Drisdol 50,000 Intl Units Cap) 1 cap PO QWK [facility] Heparin Sodium/Dextrose (Heparin 25,000 Units/250ml In D5w) 25,000 units in 250 mls @ 10 mls/hr IV .Q24H [facility] PRN Reason: Protocol Last Admin: 03/30/17 13:24 Dose: 10 mls/hr Insulin Detemir (Levemir) 10 units SC [facility] Last Admin: 03/29/17 21:54 Dose: 10 units Insulin Human Lispro (Humalog) 0 units SC ACHS [facility] PRN Reason: Protocol Last Admin: 03/30/17 17:45 Dose: Not Given Magnesium Hydroxide (Milk Of Magnesia) 30 ml PO DAILY [facility] PRN Reason: Constipation Last Admin: 03/29/17 18:16 Dose: 30 ml Metoprolol Succinate (Toprol Xl) 25 mg PO DAILY@1700 [facility] Last Admin: 03/30/17 17:45 Dose: 25 mg Pantoprazole Sodium (Protonix Ec Tab) 40 mg PO DAILY [facility] Last Admin: 03/30/17 08:55 Dose: 40 mg Pravastatin Sodium (Pravachol) 40 mg PO HS [facility] Last Admin: 03/29/17 21:53 Dose: 40 mg Ticagrelor (Brilinta) 90 mg PO BID [facility] Last Admin: 03/30/17 17:46 Dose: 90 mg - Labs Labs: 03/30/17 08:10 03/30/17 08:10 PT 12.0 Seconds (9.8-13.1) 03/30/17 11:12 INR 1.1 (0.9-1.2) 03/30/17 11:12 APTT 36.8 Seconds (25.6-37.1) D 03/30/17 18:30 - Constitutional Appears: Non-toxic - Head Exam Head Exam: NORMAL INSPECTION - Eye Exam Eye Exam: Normal appearance - ENT Exam ENT Exam: Mucous Membranes Moist - Neck Exam Neck Exam: Full ROM - Respiratory Exam Respiratory Exam: Decreased Breath Sounds - Cardiovascular Exam Cardiovascular Exam: REGULAR RHYTHM - GI/Abdominal Exam GI & Abdominal Exam: Normal Bowel Sounds - Rectal Exam Rectal Exam: Deferred - Extremities Exam Extremities Exam: Pedal Edema - Back Exam Back Exam: NORMAL INSPECTION - Neurological Exam Neurological Exam: Alert - Psychiatric Exam Psychiatric exam: Normal Affect - Skin Skin Exam: Normal Color Assessment and Plan (1) NSTEMI (non-ST elevated myocardial infarction) Assessment & Plan: continue heparin drip. discussed with patient. will perform medical stabilization. dialysis tomorrow. will plan for cardiac cath on . Status: Acute (2) CHF (congestive heart failure) Assessment & Plan: likley due to myocardial ischemia. improving Status: Acute (3) CAD (coronary artery disease) Assessment & Plan: previous PCI Status: Chronic (4) HTN (hypertension) Assessment & Plan: blood pressure control Status: Chronic
[2017-03-30] MEDS: Pravastatin Sodium 40 MG TAB PO SCH (22:25)
[2017-03-30] MEDS: Insulin Detemir 100 Units/ml Inj SC SCH (22:26)
[2017-03-31] MEDS: Insulin Lispro (humaLOG) 100 Units/ml Inj SC SCH ×4 (06:36→21:48)
[2017-03-31 07:21] LABS: HEMOGLOBIN 10.7 g/dL (12.0-18.0); MEAN CELL VOLUME 89.1 fl (80.0-94.0); MEAN CORPUSCULAR HEMOGLOBIN 28.7 pg (27.0-31.0); MEAN CORPUSCULAR HGB CONC 32.2 g/dL (33.0-37.0); RBC 3.75 Mil/uL (4.40-5.90); RED CELL DISTRIBUTION WIDTH 16.3 % (11.5-14.5); WHITE BLOOD COUNT 7.6 K/uL (4.8-10.8)
[2017-03-31 07:40] LABS: CALCIUM 9.2 mg/dL (8.4-10.2)
[2017-03-31] MEDS: Pantoprazole 40 mg EC Tab PO SCH (08:38)
[2017-03-31] MEDS ORDERED: Sod Polystyrene Sulf 15 gm/60 ml Oral Susp PO ONE (09:23)
--- NOTE | 2017-03-31 09:29 | CP.PCM.PN ---
Subjective - Date & Time of Evaluation Date of Evaluation: 03/31/17 Time of Evaluation: 09:20 - Subjective Subjective: Patient out in the chair Patient having his breakfast He feels much better No significant complaint reported and no new events reported Objective - Vital Signs/Intake and Output Vital Signs (last 24 hours): Temp Pulse Resp BP Pulse Ox 98.5 F 75 20 132/88 100 03/31/17 08:05 03/31/17 08:05 03/31/17 08:05 03/31/17 08:05 03/31/17 08:05 Intake and Output: 03/31/17 03/31/17 06:59 18:59 Intake Total 537 Balance 537 - Medications Medications: Current Medications Aspirin (Ecotrin) 81 mg PO DAILY [facility] Last Admin: 03/31/17 08:37 Dose: 81 mg Calcium Acetate (Phoslo) 2,001 mg PO AC [facility] Last Admin: 03/31/17 08:38 Dose: 2,001 mg Cinacalcet (Sensipar) 30 mg PO DAILY [facility] Last Admin: 03/31/17 08:38 Dose: 30 mg Ergocalciferol (Drisdol 50,000 Intl Units Cap) 1 cap PO QWK [facility] Heparin Sodium/Dextrose (Heparin 25,000 Units/250ml In D5w) 25,000 units in 250 mls @ 10 mls/hr IV .Q24H [facility] PRN Reason: Protocol Last Admin: 03/30/17 13:24 Dose: 10 mls/hr Insulin Detemir (Levemir) [address] [facility] Last Admin: 03/30/17 22:26 Dose: 10 units Insulin Human Lispro (Humalog) 0 units SC [facility] PRN Reason: Protocol Last Admin: 03/31/17 06:36 Dose: Not Given Magnesium Hydroxide (Milk Of Magnesia) 30 ml PO DAILY PRN PRN Reason: Constipation Last Admin: 03/29/17 18:16 Dose: 30 ml Metoprolol Succinate (Toprol Xl) 25 mg PO DAILY@1700 [facility] Last Admin: 03/30/17 17:45 Dose: 25 mg Pantoprazole Sodium (Protonix Ec Tab) 40 mg PO DAILY [facility] Last Admin: 03/31/17 08:38 Dose: 40 mg Pravastatin Sodium (Pravachol) [address] [facility] Last Admin: 03/30/17 22:25 Dose: 40 mg Ticagrelor (Brilinta) 90 mg PO BID [facility] Last Admin: 03/31/17 08:37 Dose: 90 mg - Labs Labs: 03/31/17 07:00 03/31/17 07:00 PT 12.0 Seconds (9.8-13.1) 03/30/17 11:12 INR 1.1 (0.9-1.2) 03/30/17 11:12 APTT 47.6 Seconds (25.6-37.1) H D 03/31/17 07:00 - Constitutional Appears: No Acute Distress - ENT Exam ENT Exam: Mucous Membranes Moist - Respiratory Exam Respiratory Exam: NORMAL BREATHING PATTERN. absent: Chest Wall Tenderness - Cardiovascular Exam Cardiovascular Exam: absent: JVD, Rubs - GI/Abdominal Exam GI & Abdominal Exam: Normal Bowel Sounds - Extremities Exam Extremities Exam: absent: Calf Tenderness - Back Exam Back Exam: absent: CVA tenderness (L), CVA tenderness (R) - Neurological Exam Neurological Exam: Alert Assessment and Plan (1) CKD (chronic kidney disease) stage V requiring chronic dialysis Assessment & Plan: End stage renal disease patient about to receive dialysis now with ultrafiltration 2500 mL Potassium bath 2 mEq Sodium bath 138 Bicarbonate bath 34 Continue as per primary team Status: Acute
--- NOTE | 2017-03-31 09:48 | CP.PCM.PN ---
Subjective - Date & Time of Evaluation Date of Evaluation: 03/31/17 Time of Evaluation: 09:30 - Subjective Subjective: Denies CP no SOB no fever no abd pain Discussed plan for Cardiac cath in am - pt agreese had sl epistaxis this morning w/c immediately resolved Objective - Vital Signs/Intake and Output Vital Signs (last 24 hours): Temp Pulse Resp BP Pulse Ox 98.5 F 75 20 132/88 100 03/31/17 08:05 03/31/17 08:05 03/31/17 08:05 03/31/17 08:05 03/31/17 08:05 Intake and Output: 03/31/17 03/31/17 06:59 18:59 Intake Total 537 Balance 537 - Medications Medications: Current Medications Aspirin (Ecotrin) 81 mg PO DAILY [facility] Last Admin: 03/31/17 08:37 Dose: 81 mg Calcium Acetate (Phoslo) 2,001 mg PO AC [facility] Last Admin: 03/31/17 08:38 Dose: 2,001 mg Cinacalcet (Sensipar) 30 mg PO DAILY [facility] Last Admin: 03/31/17 08:38 Dose: 30 mg Ergocalciferol (Drisdol 50,000 Intl Units Cap) 1 cap PO QWK [facility] Heparin Sodium/Dextrose (Heparin 25,000 Units/250ml In D5w) 25,000 units in 250 mls @ 10 mls/hr IV .Q24H [facility] PRN Reason: Protocol Last Admin: 03/30/17 13:24 Dose: 10 mls/hr Insulin Detemir (Levemir) 10 units SC [facility] Last Admin: 03/30/17 22:26 Dose: 10 units Insulin Human Lispro (Humalog) 0 units SC [facility] PRN Reason: Protocol Last Admin: 03/31/17 06:36 Dose: Not Given Magnesium Hydroxide (Milk Of Magnesia) 30 ml PO DAILY PRN PRN Reason: Constipation Last Admin: 03/29/17 18:16 Dose: 30 ml Metoprolol Succinate (Toprol Xl) 25 mg PO DAILY@1700 [facility] Last Admin: 03/30/17 17:45 Dose: 25 mg Pantoprazole Sodium (Protonix Ec Tab) 40 mg PO DAILY [facility] Last Admin: 03/31/17 08:38 Dose: 40 mg Pravastatin Sodium (Pravachol) 40 mg PO [facility] Last Admin: 03/30/17 22:25 Dose: 40 mg Ticagrelor (Brilinta) 90 mg PO BID [facility] Last Admin: 03/31/17 08:37 Dose: 90 mg - Labs Labs: 03/31/17 07:00 03/31/17 07:00 PT 12.0 Seconds (9.8-13.1) 03/30/17 11:12 INR 1.1 (0.9-1.2) 03/30/17 11:12 APTT 47.6 Seconds (25.6-37.1) H D 03/31/17 07:00 - Constitutional Appears: No Acute Distress - Head Exam Head Exam: NORMAL INSPECTION, NORMOCEPHALIC - Eye Exam Eye Exam: EOMI, Normal appearance Pupil Exam: NORMAL ACCOMODATION - ENT Exam ENT Exam: Mucous Membranes Moist, Normal External Ear Exam - Neck Exam Neck Exam: Full ROM. absent: Meningismus - Respiratory Exam Respiratory Exam: Rales, NORMAL BREATHING PATTERN. absent: Respiratory Distress - Cardiovascular Exam Cardiovascular Exam: REGULAR RHYTHM, +S1, +S2 - GI/Abdominal Exam GI & Abdominal Exam: Soft, Normal Bowel Sounds. absent: Tenderness - Extremities Exam Extremities Exam: Full ROM, Normal Capillary Refill. absent: Calf Tenderness, Pedal Edema - Back Exam Back Exam: Full ROM, NORMAL INSPECTION. absent: CVA tenderness (L), CVA tenderness (R) - Neurological Exam Neurological Exam: Alert, Awake, CN II-XII Intact, Oriented x3 Neuro motor strength exam: Left Upper Extremity: 5, Right Upper Extremity: 5, Left Lower Extremity: 5, Right Lower Extremity: 5 - Psychiatric Exam Psychiatric exam: Normal Affect, Normal Mood - Skin Skin Exam: Dry, Normal Color, Warm Assessment and Plan - Assessment and Plan (Free Text) Assessment: 76 years old male with hx of CAD, cardiac cath 6 months ago with placement of 2 stents, DM, CHF and ESRD on hemodialysis Wednesday, Wednesday, and Wednesday, last dialyzed 03/27/17, presented with sudden onset of severe SOB and respiratory distress 2 hrs prior to arrival to ED. EMS found pt mottled and cyanotic. They administered Nitro and IV Lasix. On arrival to the ED the patient was placed on CPAP and showed some improvement. Mild coughing, nausea nor vomits. No diarrhea nor dysuria. Patient tolerated HD well on first day of admission, volume overload improved. Troponin was found to be elevated, repeat EKG showed T wave inversions suggesting ischemia. Heparin bolus and drip started for NSTEMI. Dr. Yates is pt raw stock dyeing machine tender. NSTEMI -no active chest pain -troponin elevated , repeat EKG showed T wave inversions lateral leads, flattening inferior leads -pt hx of 2 JACKI LAD, LCx 6 months ago. -Heparin bolus and drip started -pt already on BB, brillinta, asa, statin - Pt is for Cardiac cath in am, NPO from [place] Acute Hypercarbic Respiratory Insufficiency secondary to pulmonary vascular congestion Acute on chronic diastolic CHF -pt is anuric, HD for volume overload. ESRD on HD [facility] -Dr. Ortiz on consult - sched for HD today ( [facility]) DM type II -Diabetic diet -accuchecks with coverage -HbA1c 6.16 Oct 2016 CAD -2 JACKI LAD, LCx [address] Yates -cont Brillinta, ASA, Metoprolol, Pravastatin HTN cont Metoprolol VTE ppx ON HEPARIN DRIP FOR NSTEMI
[2017-03-31] MEDS ORDERED: Heparin 25,000units in D5W 25,000 UNITS/250 ML BAG IV SCH (10:00)
[2017-03-31] MEDS: Metoprolol Succinate 25 mg XL Tab PO SCH (16:15)
--- NOTE | 2017-03-31 18:08 | CP.PCM.PN ---
Subjective - Date & Time of Evaluation Date of Evaluation: 03/31/17 Time of Evaluation: 16:00 - Subjective Subjective: patient denies chest pain or dyspnea. currently receivng dialysis. Objective - Vital Signs/Intake and Output Vital Signs (last 24 hours): Temp Pulse Resp BP Pulse Ox 97.5 F L 73 20 132/66 98 03/31/17 16:16 03/31/17 16:16 03/31/17 16:16 03/31/17 16:16 03/31/17 16:16 Intake and Output: 03/31/17 03/31/17 06:59 18:59 Intake Total 537 Balance 537 - Medications Medications: Current Medications Aspirin (Ecotrin) 81 mg PO DAILY [facility] Last Admin: 03/31/17 08:37 Dose: 81 mg Calcium Acetate (Phoslo) 2,001 mg PO AC [facility] Last Admin: 03/31/17 16:15 Dose: Not Given Cinacalcet (Sensipar) 30 mg PO DAILY [facility] Last Admin: 03/31/17 08:38 Dose: 30 mg Ergocalciferol (Drisdol 50,000 Intl Units Cap) 1 cap PO QWK [facility] Insulin Detemir (Levemir) 10 units SC [facility] Last Admin: 03/30/17 22:26 Dose: 10 units Insulin Human Lispro (Humalog) 0 units SC [facility] PRN Reason: Protocol Last Admin: 03/31/17 16:19 Dose: Not Given Magnesium Hydroxide (Milk Of Magnesia) 30 ml PO DAILY PRN PRN Reason: Constipation Last Admin: 03/29/17 18:16 Dose: 30 ml Metoprolol Succinate (Toprol Xl) 25 mg PO DAILY@1700 [facility] Last Admin: 03/31/17 16:15 Dose: Not Given Nystatin (Mycostatin Cream) 1 applic TOP TID [facility] Last Admin: 03/31/17 16:14 Dose: 1 applic Pantoprazole Sodium (Protonix Ec Tab) 40 mg PO DAILY [facility] Last Admin: 03/31/17 08:38 Dose: 40 mg Pravastatin Sodium (Pravachol) 40 mg PO HS [facility] Last Admin: 03/30/17 22:25 Dose: 40 mg Ticagrelor (Brilinta) 90 mg PO BID [facility] Last Admin: 03/31/17 08:37 Dose: 90 mg - Labs Labs: 03/31/17 07:00 03/31/17 07:00 PT 12.0 Seconds (9.8-13.1) 03/30/17 11:12 INR 1.1 (0.9-1.2) 03/30/17 11:12 APTT 47.6 Seconds (25.6-37.1) H D 03/31/17 07:00 - Constitutional Appears: Non-toxic - Head Exam Head Exam: NORMAL INSPECTION - Eye Exam Eye Exam: Normal appearance - ENT Exam ENT Exam: Mucous Membranes Moist - Neck Exam Neck Exam: Full ROM - Respiratory Exam Respiratory Exam: Decreased Breath Sounds - Cardiovascular Exam Cardiovascular Exam: REGULAR RHYTHM - GI/Abdominal Exam GI & Abdominal Exam: Normal Bowel Sounds - Rectal Exam Rectal Exam: Deferred - Extremities Exam Extremities Exam: Pedal Edema - Back Exam Back Exam: NORMAL INSPECTION - Neurological Exam Neurological Exam: Alert - Psychiatric Exam Psychiatric exam: Normal Affect - Skin Skin Exam: Normal Color Assessment and Plan (1) NSTEMI (non-ST elevated myocardial infarction) Assessment & Plan: troponin trending down. I will stop heparin. for cardiac cath tomorrow. Status: Acute (2) CHF (congestive heart failure) Assessment & Plan: improved Status: Acute (3) CAD (coronary artery disease) Assessment & Plan: continue Brilinta Status: Chronic (4) HTN (hypertension) Assessment & Plan: blood pressure control Status: Chronic
[2017-03-31] MEDS: Pravastatin Sodium 40 MG TAB PO SCH (21:46)
[2017-03-31] MEDS: Insulin Detemir 100 Units/ml Inj SC SCH (21:46)
[2017-04-01] MEDS: Insulin Lispro (humaLOG) 100 Units/ml Inj SC SCH ×2 (06:33→23:00)
[2017-04-01 07:17] LABS: MEAN CELL VOLUME 87.9 fl (80.0-94.0); RBC 3.79 Mil/uL (4.40-5.90); RED CELL DISTRIBUTION WIDTH 16.5 % (11.5-14.5); WHITE BLOOD COUNT 5.6 K/uL (4.8-10.8)
[2017-04-01 07:24] LABS: CALCIUM 9.2 mg/dL (8.4-10.2)
[2017-04-01] MEDS: Pantoprazole 40 mg EC Tab PO SCH (09:18)
[2017-04-01] MEDS: Metoprolol Succinate 25 mg XL Tab PO SCH (10:12)
--- NOTE | 2017-04-01 10:12 | CP.PCM.PN ---
Subjective - Date & Time of Evaluation Date of Evaluation: 04/01/17 Time of Evaluation: 10:00 - Subjective Subjective: Pt is sched for Cardiac cath today - at [place]- agrees to the procedure Denies CP no SOB no cough no abd pain No fever Objective - Vital Signs/Intake and Output Vital Signs (last 24 hours): Temp Pulse Resp BP Pulse Ox 98.2 F 74 18 135/69 98 04/01/17 08:00 04/01/17 08:00 04/01/17 08:00 04/01/17 08:00 04/01/17 08:00 Intake and Output: 04/01/17 04/01/17 06:59 18:59 Intake Total 360 Output Total 0 Balance 360 - Medications Medications: Current Medications Aspirin (Ecotrin) 81 mg PO DAILY [facility] Last Admin: 04/01/17 09:18 Dose: 81 mg Calcium Acetate (Phoslo) 2,001 mg PO AC [facility] Last Admin: 04/01/17 09:19 Dose: Not Given Cinacalcet (Sensipar) 30 mg PO DAILY [facility] Last Admin: 04/01/17 09:18 Dose: Not Given Ergocalciferol (Drisdol 50,000 Intl Units Cap) 1 cap PO QWK [facility] Insulin Detemir (Levemir) [address] [facility] Last Admin: 03/31/17 21:46 Dose: 10 units Insulin Human Lispro (Humalog) 0 units SC [facility] PRN Reason: Protocol Last Admin: 04/01/17 06:33 Dose: Not Given Magnesium Hydroxide (Milk Of Magnesia) 30 ml PO DAILY PRN PRN Reason: Constipation Last Admin: 03/29/17 18:16 Dose: 30 ml Metoprolol Succinate (Toprol Xl) 25 mg PO DAILY@1700 [facility] Last Admin: 03/31/17 16:15 Dose: Not Given Nystatin (Mycostatin Cream) 1 applic TOP TID [facility] Last Admin: 04/01/17 09:18 Dose: 1 applic Pantoprazole Sodium (Protonix Ec Tab) 40 mg PO DAILY [facility] Last Admin: 04/01/17 09:18 Dose: Not Given Pravastatin Sodium (Pravachol) 40 mg PO HS [facility] Last Admin: 03/31/17 21:46 Dose: 40 mg Ticagrelor (Brilinta) 90 mg PO BID [facility] Last Admin: 03/31/17 18:06 Dose: Not Given - Labs Labs: 04/01/17 05:30 04/01/17 05:30 PT 12.0 Seconds (9.8-13.1) 03/30/17 11:12 INR 1.1 (0.9-1.2) 03/30/17 11:12 APTT 29.9 Seconds (25.6-37.1) D 04/01/17 05:30 - Constitutional Appears: No Acute Distress - Head Exam Head Exam: NORMAL INSPECTION, NORMOCEPHALIC - Eye Exam Eye Exam: EOMI, Normal appearance Pupil Exam: NORMAL ACCOMODATION - ENT Exam ENT Exam: Mucous Membranes Moist, Normal External Ear Exam - Neck Exam Neck Exam: Full ROM. absent: Meningismus - Respiratory Exam Respiratory Exam: Rales, NORMAL BREATHING PATTERN. absent: Respiratory Distress - Cardiovascular Exam Cardiovascular Exam: REGULAR RHYTHM, +S1, +S2 - GI/Abdominal Exam GI & Abdominal Exam: Soft, Normal Bowel Sounds. absent: Tenderness - Extremities Exam Extremities Exam: Full ROM, Normal Capillary Refill. absent: Calf Tenderness, Pedal Edema - Back Exam Back Exam: Full ROM, NORMAL INSPECTION. absent: CVA tenderness (L), CVA tenderness (R) - Neurological Exam Neurological Exam: Alert, Awake, CN II-XII Intact, Oriented x3 Neuro motor strength exam: Left Upper Extremity: 5, Right Upper Extremity: 5, Left Lower Extremity: 5, Right Lower Extremity: 5 - Psychiatric Exam Psychiatric exam: Normal Affect, Normal Mood - Skin Skin Exam: Dry, Normal Color, Warm Assessment and Plan - Assessment and Plan (Free Text) Assessment: 76 years old male with hx of CAD, cardiac cath 6 months ago with placement of 2 stents, DM, CHF and ESRD on hemodialysis Wednesday, Wednesday, and Wednesday, last dialyzed 03/27/17, presented with sudden onset of severe SOB and respiratory distress 2 hrs prior to arrival to ED. EMS found pt mottled and cyanotic. They administered Nitro and IV Lasix. On arrival to the ED the patient was placed on CPAP and his condition improved. Patient tolerated HD well on first day of admission, volume overload improved. Troponin was found to be elevated, repeat EKG showed T wave inversions suggesting ischemia. Heparin bolus and drip started for NSTEMI. Dr. Yates - pt's tan room supervisor was consulted - plan for Cardiac cath today NSTEMI -no active chest pain -troponin elevated , repeat EKG showed T wave inversions lateral leads, flattening inferior leads -pt hx of 2 JACKI LAD, LCx 6 months ago. -Heparin bolus and drip started- now off Heparin -pt already on BB, brillinta, asa, statin - Pt is for Cardiac cath today , keep NPO Acute Hypercarbic Respiratory Insufficiency secondary to pulmonary vascular congestion Acute on chronic diastolic CHF - improved with hemodialysis - cont Toprol ESRD on HD [facility] -Dr. Ortiz on consult - sched for HD ( [facility]) DM type II -Diabetic diet -accuchecks with coverage -HbA1c 6.16 Oct 2016 - on Levemir CAD -2 JACKI LAD, LCx [address] Yates -cont Brillinta, ASA, Metoprolol, Pravastatin HTN cont Metoprolol VTE ppx Heparin
--- NOTE | 2017-04-01 10:45 | CP.PCM.PN ---
Subjective - Date & Time of Evaluation Date of Evaluation: 04/01/17 Time of Evaluation: 10:43 - Subjective Subjective: Patient reported to go for cardiac catheterization Clinically stable Patient scheduled for hemodialysis tomorrow normally MWF however if he is going for cardiac cath we will cross adductor give him short dialysis treatment today End stage renal disease on maintenance hemodialysis and rule out coronary artery disease Objective - Vital Signs/Intake and Output Vital Signs (last 24 hours): Temp Pulse Resp BP Pulse Ox 98.2 F 74 18 135/69 98 04/01/17 08:00 04/01/17 10:12 04/01/17 08:00 04/01/17 10:12 04/01/17 08:00 Intake and Output: 04/01/17 04/01/17 06:59 18:59 Intake Total 360 Output Total 0 Balance 360 - Medications Medications: Current Medications Aspirin (Ecotrin) 81 mg PO DAILY [facility] Last Admin: 04/01/17 09:18 Dose: 81 mg Calcium Acetate (Phoslo) 2,001 mg PO AC [facility] Last Admin: 04/01/17 09:19 Dose: Not Given Cinacalcet (Sensipar) 30 mg PO DAILY [facility] Last Admin: 04/01/17 09:18 Dose: Not Given Ergocalciferol (Drisdol 50,000 Intl Units Cap) 1 cap PO QWK [facility] Insulin Detemir (Levemir) 10 units SC [facility] Last Admin: 03/31/17 21:46 Dose: 10 units Insulin Human Lispro (Humalog) 0 units SC [facility] PRN Reason: Protocol Last Admin: 04/01/17 06:33 Dose: Not Given Magnesium Hydroxide (Milk Of Magnesia) 30 ml PO DAILY PRN PRN Reason: Constipation Last Admin: 03/29/17 18:16 Dose: 30 ml Metoprolol Succinate (Toprol Xl) 25 mg PO DAILY@1700 [facility] Last Admin: 04/01/17 10:12 Dose: 25 mg Nystatin (Mycostatin Cream) 1 applic TOP TID [facility] Last Admin: 04/01/17 09:18 Dose: 1 applic Pantoprazole Sodium (Protonix Ec Tab) 40 mg PO DAILY [facility] Last Admin: 04/01/17 09:18 Dose: Not Given Pravastatin Sodium (Pravachol) 40 mg PO [facility] Last Admin: 03/31/17 21:46 Dose: 40 mg Ticagrelor (Brilinta) 90 mg PO BID [facility] Last Admin: 04/01/17 10:14 Dose: 90 mg - Labs Labs: 04/01/17 05:30 04/01/17 05:30 PT 12.0 Seconds (9.8-13.1) 03/30/17 11:12 INR 1.1 (0.9-1.2) 03/30/17 11:12 APTT 29.9 Seconds (25.6-37.1) D 04/01/17 05:30 Assessment and Plan (1) CKD (chronic kidney disease) stage V requiring chronic dialysis Status: Acute
[2017-04-01] MEDS: Insulin Detemir 100 Units/ml Inj SC SCH (23:00)
[2017-04-01] MEDS: Pravastatin Sodium 40 MG TAB PO SCH (23:00)
[2017-04-02] MEDS: Insulin Lispro (humaLOG) 100 Units/ml Inj SC SCH ×3 (06:47→17:28)
[2017-04-02 07:11] LABS: BASO # 0.1 K/uL (0.0-0.2); BASO % 1.2 % (0.0-2.0); EOS # 0.2 K/uL (0.0-0.7); EOS % 2.8 % (0.0-4.0); HEMOGLOBIN 11.1 g/dL (12.0-18.0); LYMPH # 0.9 K/uL (1.0-4.3); LYMPH % 17.1 % (20.0-40.0); MEAN CELL VOLUME 88.7 fl (80.0-94.0); MEAN CORPUSCULAR HEMOGLOBIN 28.7 pg (27.0-31.0); MEAN CORPUSCULAR HGB CONC 32.4 g/dL (33.0-37.0); MEAN PLATELET VOLUME 8.7 fl (7.2-11.7); MONO # 0.5 K/uL (0.0-0.8); MONO % 9.6 % (0.0-10.0); NEUT # 3.8 K/uL (1.8-7.0); NEUT % 69.3 % (50.0-75.0); NRBC % 0.2 % (0.0-0.0); RBC 3.86 Mil/uL (4.40-5.90); RED CELL DISTRIBUTION WIDTH 16.3 % (11.5-14.5); WHITE BLOOD COUNT 5.4 K/uL (4.8-10.8)
[2017-04-02 07:34] LABS: CALCIUM 9.5 mg/dL (8.4-10.2)
[2017-04-02 07:55] VITALS: RESP 18
[2017-04-02] MEDS: Pantoprazole 40 mg EC Tab PO SCH (08:50)
--- NOTE | 2017-04-02 11:07 | CP.PCM.DIS ---
Provider - Provider Date of Admission: 03/29/17 03:44 Attending physician: Andreas Penaloza Primary care physician: Dr nuñez Consults: Cardio: Dr Yates Nephrology: Dr Ortiz Time Spent in preparation of Discharge (in minutes): 30 Diagnosis - Discharge Diagnosis (1) NSTEMI (non-ST elevated myocardial infarction) Status: Acute (2) Acute respiratory failure with hypoxia and hypercarbia Status: Acute (3) Diastolic CHF, acute on chronic Status: Acute (4) CKD (chronic kidney disease) stage V requiring chronic dialysis Status: Acute (5) CAD (coronary artery disease) Status: Chronic (6) Diabetes mellitus Status: Chronic Hospital Course - Lab Results Lab Results: Most Recent Lab Values WBC 5.4 K/uL (4.8-10.8) 04/02/17 05:30 RBC 3.86 Mil/uL (4.40-5.90) L 04/02/17 05:30 Hgb 11.1 g/dL (12.0-18.0) L 04/02/17 05:30 Hct 34.2 % (35.0-51.0) L 04/02/17 05:30 MCV 88.7 fl (80.0-94.0) 04/02/17 05:30 MCH 28.7 pg (27.0-31.0) 04/02/17 05:30 MCHC 32.4 g/dL (33.0-37.0) L 04/02/17 05:30 RDW 16.3 % (11.5-14.5) H 04/02/17 05:30 Plt Count 129 K/uL (130-400) L 04/02/17 05:30 MPV 8.7 fl (7.2-11.7) 04/02/17 05:30 Neut % (Auto) 69.3 % (50.0-75.0) 04/02/17 05:30 Lymph % (Auto) 17.1 % (20.0-40.0) L 04/02/17 05:30 [place] % (Auto) 9.6 % (0.0-10.0) 04/02/17 05:30 Eos % (Auto) 2.8 % (0.0-4.0) 04/02/17 05:30 Baso % (Auto) 1.2 % (0.0-2.0) 04/02/17 05:30 Neut # 3.8 K/uL (1.8-7.0) 04/02/17 05:30 Lymph # 0.9 K/uL (1.0-4.3) L 04/02/17 05:30 [place] # 0.5 K/uL (0.0-0.8) 04/02/17 05:30 Eos # 0.2 K/uL (0.0-0.7) 04/02/17 05:30 Baso # 0.1 K/uL (0.0-0.2) 04/02/17 05:30 PT 12.0 Seconds (9.8-13.1) 03/30/17 11:12 INR 1.1 (0.9-1.2) 03/30/17 11:12 APTT 29.9 Seconds (25.6-37.1) D 04/01/17 05:30 pCO2 35 mm/Hg (35-45) 03/29/17 16:36 pO2 318 mm/Hg (80-100) H 03/29/17 16:36 HCO3 29.4 mmol/L (21-28) H 03/29/17 16:36 ABG pH 7.52 (7.35-7.45) H 03/29/17 16:36 ABG Total CO2 29.7 mmol/L (22-28) H 03/29/17 16:36 ABG O2 Saturation 100.0 % (95-98) H 03/29/17 16:36 ABG O2 Content 19.3 ML/dL (15-23) 03/29/17 16:36 ABG Base Excess 5.7 mmol/L (-2.0-3.0) H 03/29/17 16:36 ABG Hemoglobin 13.5 g/dL (11.7-17.4) 03/29/17 16:36 ABG Carboxyhemoglobin 1.3 % (0.5-1.5) 03/29/17 16:36 POC ABG HHb (Measured) 0.0 % (0.0-5.0) 03/29/17 16:36 ABG Methemoglobin 1.4 % (0.0-3.0) 03/29/17 16:36 ABG O2 Capacity 19.3 mL/dL (16-24) 03/29/17 16:36 Manuel Test Yes 03/29/17 16:36 VBG pH 7.22 (7.32-7.43) L 03/29/17 02:10 VBG pCO2 68 mmHg (40-60) H* 03/29/17 02:10 VBG HCO3 21.6 mmol/L 03/29/17 02:10 VBG Total CO2 29.9 mmol/L (22-28) H 03/29/17 02:10 VBG O2 Sat (Calc) 33.2 % (40-65) L 03/29/17 02:10 VBG Base Excess -1.5 mmol/L (0.0-2.0) L 03/29/17 02:10 VBG Potassium 4.1 mmol/L (3.6-5.2) 03/29/17 02:10 A-a O2 Difference 351.0 mm/Hg 03/29/17 16:36 Hgb O2 Saturation 97.3 % (95.0-98.0) 03/29/17 16:36 Sodium 141.0 mmol/L (132-148) 03/29/17 02:10 Chloride 101.0 mmol/L (98-107) 03/29/17 02:10 Glucose 245 mg/dL (75-110) H 03/29/17 02:10 Lactate 3.1 mmol/L (0.7-2.1) H 03/29/17 02:10 FiO2 100.0 % 03/29/17 16:36 Inspiratory BiPAP 14 03/29/17 16:36 Expiratory BiPAP 5 03/29/17 16:36 Crit Value Called To Delano benjamin md 03/29/17 02:10 Crit Value Called By 302 03/29/17 02:10 Crit Value Read Back Y 03/29/17 02:10 Blood Gas Notified Time 217 03/29/17 02:10 Sodium 142 mmol/l (132-148) 04/02/17 05:30 Potassium 4.7 MMOL/L (3.6-5.0) 04/02/17 05:30 Chloride 99 mmol/L (98-107) 04/02/17 05:30 Carbon Dioxide 29 mmol/L (22-30) 04/02/17 05:30 Anion Gap 18 (10-20) 04/02/17 05:30 BUN 45 mg/dl (9-20) H 04/02/17 05:30 Creatinine 7.5 mg/dL (0.8-1.5) H* 04/02/17 05:30 Est GFR ( Amer) 9 04/02/17 05:30 Est GFR (Non-Af Amer) 7 04/02/17 05:30 POC Glucose (mg/dL) 94 mg/dL (65-110) 04/02/17 05:15 Random Glucose 79 mg/dL (75-110) 04/02/17 05:30 Calcium 9.5 mg/dL (8.4-10.2) 04/02/17 05:30 Total Bilirubin 0.5 mg/dl (0.2-1.3) 03/29/17 02:45 AST 34 U/L (17-59) 03/29/17 02:45 ALT 31 U/L (21-72) 03/29/17 02:45 Alkaline Phosphatase 98 U/L (38-126) 03/29/17 02:45 Troponin I 5.8000 ng/mL (0.00-0.120) H* 03/30/17 18:30 NT-Pro-B Natriuret Pep 84164 pg/ml (0-900) H 03/29/17 02:45 Total Protein 8.4 G/DL (6.3-8.2) H 03/29/17 02:45 Albumin 4.4 g/dL (3.5-5.0) 03/29/17 02:45 Globulin 4.0 gm/dL (2.2-3.9) H 03/29/17 02:45 Albumin/Globulin Ratio 1.1 (1.0-2.1) 03/29/17 02:45 Venous Blood Potassium 4.1 mmol/L (3.6-5.2) 03/29/17 02:10 Hep Bs Antigen Negative (NEGATIVE) 03/29/17 17:37 Hep Bs Antibody Positive (NEGATIVE) 03/29/17 17:37 Hepatitis C Antibody Negative (NEGATIVE) 03/29/17 17:37 - Hospital Course Hospital Course: 76 years old male with hx of CAD, cardiac cath 6 months ago with placement of 2 stents, DM, CHF and ESRD on hemodialysis Wednesday, Wednesday, and Wednesday, last dialyzed 03/27/17, presented with sudden onset of severe SOB and respiratory distress 2 hrs prior to arrival to ED. EMS found pt mottled and cyanotic. They administered Nitro and IV Lasix. On arrival to the ED the patient was placed on CPAP and his condition improved. Patient tolerated HD well on first day of admission, volume overload improved. Troponin was found to be elevated, repeat EKG showed T wave inversions suggesting ischemia. Heparin bolus and drip started for NSTEMI. Dr. Yates - pt's access services representative was consulted - pt underwent Cardiac Cath - Stent placed on the Left Circumflex. NSTEMI s/p Cardiac Cath with Stent placed Left Circumflex -no active chest pain -troponin elevated , repeat EKG showed T wave inversions lateral leads, flattening inferior leads -pt hx of 2 Stents LAD, LCx 6 months ago. -Heparin bolus and drip started- now off Heparin -cont BB, brillinta, asa, statin Acute Hypercarbic Respiratory Insufficiency secondary to pulmonary vascular congestion Acute on chronic diastolic CHF - improved with hemodialysis - cont Toprol - no ALBERTINA/ARBC due to Hyperkalemia ESRD on HD MWF -Dr. Ortiz on consult - sched for HD ( [facility]) DM type II -Diabetic diet -accuchecks with coverage -HbA1c 6.16 Oct 2016 - on Levemir CAD -2 JACKI LAD, LCx [address] Yates -cont Brillinta, ASA, Metoprolol, Pravastatin HTN cont Metoprolol VTE ppx Heparin Discharge Exam - Head Exam Head Exam: NORMAL INSPECTION Additional comments: - Constitutional Appears: No Acute Distress - Head Exam Head Exam: NORMAL INSPECTION, NORMOCEPHALIC - Eye Exam Eye Exam: EOMI, Normal appearance Pupil Exam: NORMAL ACCOMODATION - ENT Exam ENT Exam: Mucous Membranes Moist, Normal External Ear Exam - Neck Exam Neck Exam: Full ROM. absent: Meningismus - Respiratory Exam Respiratory Exam: Rales, NORMAL BREATHING PATTERN. absent: Respiratory Distress - Cardiovascular Exam Cardiovascular Exam: REGULAR RHYTHM, +S1, +S2 - GI/Abdominal Exam GI & Abdominal Exam: Soft, Normal Bowel Sounds. absent: Tenderness - Extremities Exam Extremities Exam: Full ROM, Normal Capillary Refill. absent: Calf Tenderness, Pedal Edema cardiac cath site - right groin , no hematoma nor bleeding - Back Exam Back Exam: Full ROM, NORMAL INSPECTION. absent: CVA tenderness (L), CVA tenderness (R) - Neurological Exam Neurological Exam: Alert, Awake, CN II-XII Intact, Oriented x3 Neuro motor strength exam: Left Upper Extremity: 5, Right Upper Extremity: 5, Left Lower Extremity: 5, Right Lower Extremity: 5 - Psychiatric Exam Psychiatric exam: Normal Affect, Normal Mood - Skin Skin Exam: Dry, Normal Color, Warm Discharge Plan - Discharge Medications Prescriptions: Famotidine [Pepcid] 20 mg PO BID #60 tab Ticagrelor [Brilinta] 90 mg PO BID #60 tab - Follow Up Plan Condition: IMPROVED Disposition: HOME/ ROUTINE Additional Instructions: d/c pt after Hemodialysis ff up with Dr Yates in 1-2 wks ff up with Joaquin noel Referrals: Eric Nuñez MD [Family Provider] - Dylan Yates MD [Staff Provider] - Clinical Quality Measures - CQM - Heart Failure Ejection Fraction: 40 % or Greater ALBERTINA Inhibitor Prescribed: No Contraindication/Reason for not providing: hyperkalemi Beta-Susy Prescribed: Metoprolol Succinate Angiotensin II Receptor Susy Prescribed: No Contraindication/Reason for not providing: hyperkalemia AnticoagulationTherapy for Atrial Fibrillation/Atrialflutter: No Contraindication/Reason for not providing: no A Fib Aldosterone Antagonist Prescribed: No Contraindication/Reason for not providing: hyperkalemia Hydralazine Nitrate Prescribed: No Contraindication/Reason for not providing: not indicated Implantable Cardioverter Defibrillator Therapy: No Contraindication/Reason for not providing: not indicated Cardiac Resynchronization Therapy Prescribed: No Contraindication/Reason for not providing: not indicated Will be discharged to: Home Follow Up Date (must be within 7 days from discharge): 04/05/17 Follow Up Time: 09:00 - Date & Time of Discharge Summary Date of Discharge Summary: 04/02/17 Time of Discharge Summary: 16:28
--- NOTE | 2017-04-02 13:01 | CP.PCM.PN ---
Subjective - Date & Time of Evaluation Date of Evaluation: 04/02/17 Time of Evaluation: 12:59 - Subjective Subjective: Patient and bed appears to be comfortable Chest pain no shortness of breath Secondary exam Chest no rales Heart no rubs Abdomen soft Extremity no edema Patient and plan Status post cardiac cath with stenting one artery see the cardiology report End stage renal disease about to start dialysis now Ultrafiltration 1500 Sodium 138 Potassium 3 mEq Patient had cardiac cath yesterday afternoon and we did give them short hemodialysis and he tolerated well Follow-up by his mail order sorter as outpatient Objective - Vital Signs/Intake and Output Vital Signs (last 24 hours): Temp Pulse Resp BP Pulse Ox 98.3 F 82 18 125/59 L 100 04/02/17 12:17 04/02/17 12:17 04/02/17 12:17 04/02/17 12:17 04/02/17 12:17 Intake and Output: 04/02/17 04/02/17 06:59 18:59 Intake Total 240 Balance 240 - Medications Medications: Current Medications Acetaminophen (Tylenol 325mg Tab) 650 mg PO Q6 PRN PRN Reason: Pain, moderate (4-7) Aspirin (Ecotrin) 81 mg PO DAILY [facility] Last Admin: 04/02/17 08:50 Dose: 81 mg Calcium Acetate (Phoslo) 2,001 mg PO AC [facility] Last Admin: 04/02/17 12:11 Dose: 2,001 mg Cinacalcet (Sensipar) 30 mg PO DAILY [facility] Last Admin: 04/02/17 08:50 Dose: 30 mg Ergocalciferol (Drisdol 50,000 Intl Units Cap) 1 cap PO QWK [facility] Insulin Detemir (Levemir) 10 units SC HS [facility] Last Admin: 04/01/17 23:00 Dose: 10 units Insulin Human Lispro (Humalog) 0 units SC ACHS [facility] PRN Reason: Protocol Last Admin: 04/02/17 12:12 Dose: 1 u Magnesium Hydroxide (Milk Of Magnesia) 30 ml PO DAILY PRN PRN Reason: Constipation Last Admin: 03/29/17 18:16 Dose: 30 ml Metoprolol Succinate (Toprol Xl) 25 mg PO DAILY@1700 [facility] Last Admin: 04/01/17 10:12 Dose: 25 mg Nystatin (Mycostatin Cream) 1 applic TOP TID [facility] Last Admin: 04/02/17 12:11 Dose: 1 applic Pantoprazole Sodium (Protonix Ec Tab) 40 mg PO DAILY RIA Last Admin: 04/02/17 08:50 Dose: 40 mg Pravastatin Sodium (Pravachol) 40 mg PO HS [facility] Last Admin: 04/01/17 23:00 Dose: 40 mg Ticagrelor (Brilinta) 90 mg PO BID RIA - Labs Labs: 04/02/17 05:30 04/02/17 05:30 PT 12.0 Seconds (9.8-13.1) 03/30/17 11:12 INR 1.1 (0.9-1.2) 03/30/17 11:12 APTT 29.9 Seconds (25.6-37.1) D 04/01/17 05:30 Assessment and Plan (1) CKD (chronic kidney disease) stage V requiring chronic dialysis Status: Acute
[2017-04-02 16:56] VITALS: PULSE 76; TEMP 98.8; O2SAT 99
[2017-04-02] MEDS: Metoprolol Succinate 25 mg XL Tab PO SCH (17:49)
[2017-04-02 17:50] VITALS: BP 113/56
== END 2017-04-02 19:08 | disposition home or self-care (01) | DRG 246 ==
LOC: H.ER 01:52 → H.ERHOLD 03:44 → H.TEL 06:14
PROVIDERS: ADMIT Internal Medicine; ATTEND Internal Medicine
PROC: 5A09457 Assistance with Respiratory Ventilation, 24-96 Consecutive Hours, Continuous Positive Airway Pressure (ICD-10-PCS; principal; 2017-03-29)
PROC: 5A1D00Z (ICD-10-PCS; 2017-03-31)
PROC: 027034Z Dilation of Coronary Artery, One Artery with Drug-eluting Intraluminal Device, Percutaneous Approach (ICD-10-PCS; 2017-04-01)
PROC: 4A023N7 Measurement of Cardiac Sampling and Pressure, Left Heart, Percutaneous Approach (ICD-10-PCS; 2017-04-01)
PROC: B205YZZ Plain Radiography of Left Heart using Other Contrast (ICD-10-PCS; 2017-04-01)
DX: I21.4 Non-ST elevation (NSTEMI) myocardial infarction (principal); J96.02 Acute respiratory failure with hypercapnia; I50.43 Acute on chronic combined systolic (congestive) and diastolic (congestive) heart failure; E87.4 Mixed disorder of acid-base balance; J96.01 Acute respiratory failure with hypoxia; N18.6 End stage renal disease; I13.2 Hypertensive heart and chronic kidney disease with heart failure and with stage 5 chronic kidney disease, or end stage renal disease; E11.22 Type 2 diabetes mellitus with diabetic chronic kidney disease; E87.5 Hyperkalemia; E78.00 Pure hypercholesterolemia, unspecified; I25.10 Atherosclerotic heart disease of native coronary artery without angina pectoris; J44.9 Chronic obstructive pulmonary disease, unspecified; D63.8 Anemia in other chronic diseases classified elsewhere; E11.65 Type 2 diabetes mellitus with hyperglycemia; D72.828 Other elevated white blood cell count; I73.9 Peripheral vascular disease, unspecified; R04.0 Epistaxis; F17.200 Nicotine dependence, unspecified, uncomplicated; Z99.2 Dependence on renal dialysis; Z79.4 Long term (current) use of insulin; Z79.82 Long term (current) use of aspirin; Z95.5 Presence of coronary angioplasty implant and graft; Z88.2 Allergy status to sulfonamides; Z91.011 Allergy to milk products

== ENCOUNTER 2017-05-09 21:30 | Emergency (ER) | payer MEDICARE ==
[2017-05-09 21:31] VITALS: BMI 37.5
[2017-05-09] MEDS ORDERED: Nitroglycerin 2% 15 INCH/30 GM TUBE TOP STA (21:52)
[2017-05-09] MEDS ORDERED: Nitroglycerin 2% Ointment Foilpak UD TOP ONE (21:55)
[2017-05-09] MEDS ORDERED: Heparin25000 units/250ml 1/2NS 25,000 UNITS/250 ML BAG IV ONE (22:09)
--- NOTE | 2017-05-09 22:12 | ED PDOC ---
HPI: SOB/CHF/COPD Time Seen by Provider: 05/09/17 21:39 Chief Complaint (Nursing): Shortness Of Breath Chief Complaint (Provider): Shortness Of Breath History Per: Patient History/Exam Limitations: no limitations Onset/Duration Of Symptoms: Hrs (x5) Current Symptoms Are (Timing): Still Present Additional Complaint(s): Noah Edward is a 77 year old male who presents to the emergency department with a complaint of shortness of breath associated with abdominal pain ongoing for 5 hours. Denied any chest pain or palpitations. Patient stated that he overate today and the abdominal pain feels similar to a prior indigestion pain he had without any new changes. PMD: none provided Past Medical History Reviewed: Historical Data, Nursing Documentation, Vital Signs Vital Signs: Last Vital Signs Temp Pulse 101 H 05/09/17 22:17 Resp 24 05/09/17 21:46 BP 152/69 H 05/09/17 21:46 Pulse Ox 85 L 05/09/17 22:36 - Medical History PMH: CAD ([place]), CHF, Diabetes, HTN, Hypercholesterolemia, End Stage Renal Disease , Chronic Kidney Disease Denies: HIV, Kidney Stones - Surgical History Surgical History: Coronary Stent - Family History Family History: States: Unknown Family Hx, Hypertension - Home Medications Home Medications: Ambulatory Orders Medication Instructions Recorded Aspirin [Ecotrin] 81 mg PO DAILY 09/16/16 Calcium Acetate [Phoslo] 3 tab PO AC 09/16/16 Cinacalcet [Sensipar] 30 mg PO DAILY 09/16/16 Ergocalciferol (Vitamin D2) 50,000 iu PO QWK 09/16/16 [Vitamin D2] Insulin Glargine, Recombina 10 units SQ DAILY 09/16/16 [Lantus] Insulin Lispro [Humalog Kwikpen 4 units SQ TID 09/16/16 U-100] Metoprolol Succinate 25 mg PO DAILY 09/16/16 Pravastatin Sodium 40 mg PO HS 09/16/16 Famotidine [Pepcid] 20 mg PO BID #60 tab 04/02/17 Nystatin [Mycostatin Cream] 1 applic TOP TID 04/02/17 Ticagrelor [Brilinta] 90 mg PO BID #60 tab 04/02/17 - Allergies Allergies/Adverse Reactions: Allergies Allergy/AdvReac Type Severity Reaction Status Date / Time Sulfa (Sulfonamide Allergy PAIN Verified 03/29/17 01:58 Antibiotics) milk AdvReac NAUSEA Verified 03/29/17 01:58 Review of Systems ROS Statement: Except As Marked, All Systems Reviewed And Found Negative Cardiovascular: Negative for: Chest Pain, Palpitations Respiratory: Positive for: Shortness of Breath Gastrointestinal: Positive for: Abdominal Pain Physical Exam - Reviewed Nursing Documentation Reviewed: Yes Vital Signs Reviewed: Yes - Physical Exam Appears: Positive for: Well, Non-toxic, In Acute Distress Head Exam: Positive for: ATRAUMATIC, NORMAL INSPECTION, NORMOCEPHALIC Cardiovascular/Chest: Positive for: Tachycardia (but regular rhythm). Negative for: Regular Rate, Rhythm Respiratory: Positive for: Crackles (bilateral), Respiratory Distress (mild). Negative for: Normal Breath Sounds Gastrointestinal/Abdominal: Positive for: Soft, Tenderness (epigastric RUQ). Negative for: Normal Exam Extremity: Positive for: Pedal Edema (1+) Neurologic/Psych: Positive for: Alert, seed sales manager II-XII, Oriented - Laboratory Results Result Diagrams: 05/09/17 21:52 05/09/17 21:52 - ECG Interpretation Of ECG: ST @ 114, LBBB (new compared to 03/27). O2 Sat by Pulse Oximetry: 85 (RA) Pulse Ox Interpretation: Abnormal - Radiology X-Ray: Interpreted by Me X-Ray Interpretation: Other (Pulmonary edema) - Physician Consult Information Time Consulting Physican Contacted: 22:00 Physician Contacted: Jin Roque Outcome Of Conversation: EKGs texted, activate Code Heart, Heparin bolus. - Core Measure Core Measure Indicators: Code Heart Medical Decision Making Medical Decision Making: Initial Impression: Shortness of Breath Initial Plan: * EKG * PROBNP * Labs * Troponin I * PTT * PT * CXR * Heparin 6,800 units IVP * Heparin 1,200 units IVP * Nitro-Bid * Glucose, blood, POC * Bipap * Urinalysis * Re-evaluation Scribe Attestation: Documented by Yolanda Subramanian, acting as a scribe for Shari Hutton MD. Provider Scribe Attestation: All medical record entries made by the Scribe were at my direction and personally dictated by me. I have reviewed the chart and agree that the record accurately reflects my personal performance of the history, physical exam, medical decision making, and the department course for this patient. I have also personally directed, reviewed, and agree with the discharge instructions and disposition. Disposition - Clinical Impression Clinical Impression: ACS (acute coronary syndrome) - Patient ED Disposition Is Patient to be Admitted: Transfer of Care - Disposition Disposition Time: 22:37 Condition: CRITICAL Forms: [facility] (Bengali) Critical Care Time - Critical Care Note Total Time (in mins): 30 Documented critical care: time excludes all time spent performing seperately billable procedures.
[2017-05-09 22:17] LABS: BASO # 0.1 K/uL (0.0-0.2); BASO % 0.4 % (0.0-2.0); EOS % 0.3 % (0.0-4.0); LYMPH # 1.1 K/uL (1.0-4.3); MEAN CELL VOLUME 91.1 fl (80.0-94.0); MEAN CORPUSCULAR HEMOGLOBIN 29.7 pg (27.0-31.0); MEAN CORPUSCULAR HGB CONC 32.6 g/dL (33.0-37.0); MEAN PLATELET VOLUME 8.4 fl (7.2-11.7); MONO # 0.5 K/uL (0.0-0.8); MONO % 3.1 % (0.0-10.0); NEUT # 14.3 K/uL (1.8-7.0); NEUT % 89.2 % (50.0-75.0); PLATELET COUNT 252 K/uL (130-400); RED CELL DISTRIBUTION WIDTH 16.2 % (11.5-14.5)
[2017-05-09 22:18] LABS: ABG ALLEN TEST YES; ABG MECHANICAL RATE 12; ARTERIAL BLOOD GAS HCO3 26.2 mmol/L (21-28); ARTERIAL BLOOD GAS MODE BiPAP; ARTERIAL BLOOD GAS PH 7.41 (7.35-7.45); ARTERIAL BLOOD GAS PO2 214 mm/Hg (80-100); ARTERIAL BLOOD HGB O2 SAT 95.1 % (95.0-98.0); CARBOXYHEMOGLOBIN 2.4 % (0.5-1.5); HHB -0.1 % (0.0-5.0); METHEMOGLOBIN 2.6 % (0.0-3.0)
[2017-05-09 22:21] VITALS: PULSE 101
[2017-05-09 22:26] LABS: ALB/GLOB RATIO 1.3 (1.0-2.1); BILIRUBIN,TOTAL 0.7 mg/dl (0.2-1.3); CALCIUM 9.9 mg/dL (8.4-10.2); POTASSIUM 5.9 MMOL/L (3.6-5.0); TOTAL PROTEIN 7.9 G/DL (6.3-8.2)
[2017-05-09 22:37] VITALS: RESP 26
[2017-05-09 22:38] VITALS: BP 111/59; TEMP 98.3
[2017-05-09 22:39] VITALS: O2SAT 85
[2017-05-09 22:41] LABS: TROPONIN I 0.162 ng/mL (0.00-0.120)
[2017-05-09 22:49] LABS: EOSINOPHIL 1 % (0-7); NEUTROPHIL 86 % (42-75); TOTAL CELLS COUNTED 100
--- NOTE | 2017-05-10 14:30 | RAD ---
HISTORY: Shortness of breath. COMPARISON: 03/29/2017. FINDINGS: LUNGS: Pulmonary vascular congestion and acute alveolar pulmonary edema. PLEURA: No significant pleural effusion identified, no pneumothorax apparent. CARDIOVASCULAR: Cardiomegaly/acute CHF. OSSEOUS STRUCTURES: No significant abnormalities. VISUALIZED UPPER ABDOMEN: Normal. OTHER FINDINGS: None. IMPRESSION: Cardiomegaly, acute CHF and moderate pulmonary edema. These represent progressive changes compared to prior studies.
--- NOTE | 2017-05-12 18:34 | CARD ---
APPROVED REPORT EKG Measurement Heart [id number] [id number] <Conclusion> Sinus tachycardia with fusion complexes Left axis deviation Left bundle branch block Abnormal ECG
== END 2017-05-09 22:39 | disposition short-term general hospital (02) ==
LOC: CANPREER → H.ER 21:30
DX: I24.9 Acute ischemic heart disease, unspecified (principal); E11.22 Type 2 diabetes mellitus with diabetic chronic kidney disease; I13.2 Hypertensive heart and chronic kidney disease with heart failure and with stage 5 chronic kidney disease, or end stage renal disease; I44.7 Left bundle-branch block, unspecified; J44.9 Chronic obstructive pulmonary disease, unspecified; Z79.4 Long term (current) use of insulin; Z95.5 Presence of coronary angioplasty implant and graft; Z79.82 Long term (current) use of aspirin; N18.6 End stage renal disease; I50.9 Heart failure, unspecified
CPT/HCPCS: 72HRC; 93005

== ENCOUNTER 2017-05-24 01:19 | Observation (INO) | payer MEDICARE ==
[2017-05-24 01:19] VITALS: BMI 37.5
--- NOTE | 2017-05-24 02:09 | ED PDOC ---
HPI: SOB/CHF/COPD Time Seen by Provider: 05/24/17 01:36 Chief Complaint (Nursing): Shortness Of Breath Chief Complaint (Provider): Shortness Of Breath History Per: Patient History/Exam Limitations: no limitations Onset/Duration Of Symptoms: Days (x4) Current Symptoms Are (Timing): Still Present Additional Complaint(s): Noah Edward is a 77 year old male with previous medical history of hypertension, coronary artery disease, hypercholesterolemia, and GERD, who presents to the emergency department with a complaint of shortness of breath with exertion associated with sweats, vomiting, and diarrhea status post being discharged from [facility] 4 days ago for pneumonia. Denied any fever, chills, chest pain, or swelling. Of note, patient is currently on antibiotics for pneumonia and has dialysis treatments every Wednesday, Wednesday and Wednesday. PMD: Dr. Fajardo Past Medical History Reviewed: Historical Data, Nursing Documentation, Vital Signs Vital Signs: Last Vital Signs Temp 99.0 F 05/24/17 01:38 Pulse 96 H 05/24/17 05:19 Resp 20 05/24/17 05:19 BP 113/52 L 05/24/17 05:19 Pulse Ox 97 05/24/17 05:19 - Medical History PMH: CAD ([place]), CHF, Diabetes, HTN, Hypercholesterolemia, Pneumonia, End Stage Renal Disease, Chronic Kidney Disease Denies: HIV, Kidney Stones - Surgical History Surgical History: Coronary Stent (x4) - Family History Family History: States: Unknown Family Hx, Hypertension - Social History Ex-Smoker (has not smoked in the last 12 months): Yes Alcohol: Social Drugs: Denies - Home Medications Home Medications: Ambulatory Orders Medication Instructions Recorded Aspirin [Ecotrin] 81 mg PO DAILY 09/16/16 Calcium Acetate [Phoslo] 3 tab PO TIDPC 09/16/16 Cinacalcet [Sensipar] 30 mg PO DAILY 09/16/16 Ergocalciferol (Vitamin D2) 50,000 iu PO QWK 09/16/16 [Vitamin D2] Insulin Glargine, Recombina 10 units SQ DAILY 09/16/16 [Lantus] Insulin Lispro [Humalog Kwikpen 4 units SQ TID 09/16/16 U-100] Pravastatin Sodium 40 mg PO HS 09/16/16 Enalapril Maleate [Vasotec] 2.5 mg PO DAILY 05/24/17 Metoprolol Succinate [Toprol Xl] 1 tab PO DAILY 05/24/17 Mometasone 0.1% [Elocon Cream] 1 appl TD DAILY 05/24/17 Omeprazole [Omeprazole] 40 mg PO DAILY 05/24/17 - Allergies Allergies/Adverse Reactions: Allergies Allergy/AdvReac Type Severity Reaction Status Date / Time Sulfa (Sulfonamide Allergy PAIN Verified 05/24/17 01:38 Antibiotics) milk AdvReac NAUSEA Verified 05/24/17 01:38 Review of Systems ROS Statement: Except As Marked, All Systems Reviewed And Found Negative Constitutional: Positive for: Sweats. Negative for: Fever, Chills Cardiovascular: Negative for: Chest Pain, Edema Respiratory: Positive for: SOB with Exertion Gastrointestinal: Positive for: Vomiting, Diarrhea Physical Exam - Reviewed Nursing Documentation Reviewed: Yes Vital Signs Reviewed: Yes - Physical Exam Appears: Positive for: Well (but obese), Non-toxic, No Acute Distress Head Exam: Positive for: ATRAUMATIC, NORMAL INSPECTION, NORMOCEPHALIC Skin: Positive for: Normal Color Cardiovascular/Chest: Positive for: Regular Rate, Rhythm. Negative for: Chest Non Tender Respiratory: Positive for: Crackles (on basis). Negative for: Normal Breath Sounds Gastrointestinal/Abdominal: Positive for: Soft Extremity: Positive for: Normal ROM, Pedal Edema (slight trace bilaterally). Negative for: Deformity - Laboratory Results Result Diagrams: 05/24/17 02:10 05/24/17 02:10 - ECG O2 Sat by Pulse Oximetry: 92 (RA) Pulse Ox Interpretation: Normal Medical Decision Making Medical Decision Making: Initial Impression: SOB with exertion Initial Plan: * ProBNP * Labs * Troponin I * CXR Time: 020 --Labs: elavated ProBNP. CHF exacerbation. Ordered Lasix for elevation. --Hospitalist, Dr Duvall covering dr sullivan pts pcp paged for consult. --Upon review of old charts, patient also has history of left bundle branch block, thrombocytopenia and diabetes. Time: 030 --Discussed case with Dr. Andreas Penaloza who advised antibiotics for elevated WBC and admittance to hospital. pt aware of plan. Scribe Attestation: Documented by Yolanda Subramanian, acting as a scribe for Delano Arredondo MD. Provider Scribe Attestation: All medical record entries made by the Scribe were at my direction and personally dictated by me. I have reviewed the chart and agree that the record accurately reflects my personal performance of the history, physical exam, medical decision making, and the department course for this patient. I have also personally directed, reviewed, and agree with the discharge instructions and disposition. Disposition - Clinical Impression Clinical Impression: Shortness of breath - Patient ED Disposition Is Patient to be Admitted: No Counseled Patient/Family Regarding: Studies Performed - Disposition Disposition Time: 13:00 Condition: [facility]
[2017-05-24 02:22] LABS: BASO # 0.1 K/uL (0.0-0.2); BASO % 0.8 % (0.0-2.0); EOS # 0.1 K/uL (0.0-0.7); EOS % 0.8 % (0.0-4.0); HEMOGLOBIN 10.7 g/dL (12.0-18.0); LYMPH # 0.6 K/uL (1.0-4.3); LYMPH % 4.3 % (20.0-40.0); MEAN CELL VOLUME 89.5 fl (80.0-94.0); MEAN CORPUSCULAR HEMOGLOBIN 28.8 pg (27.0-31.0); MEAN CORPUSCULAR HGB CONC 32.2 g/dL (33.0-37.0); MONO # 0.7 K/uL (0.0-0.8); MONO % 4.8 % (0.0-10.0); NEUT # 13.2 K/uL (1.8-7.0); NEUT % 89.3 % (50.0-75.0); PLATELET COUNT 192 K/uL (130-400); RBC 3.71 Mil/uL (4.40-5.90); RED CELL DISTRIBUTION WIDTH 15.3 % (11.5-14.5); WHITE BLOOD COUNT 14.8 K/uL (4.8-10.8)
[2017-05-24 02:32] LABS: ALB/GLOB RATIO 1.3 (1.0-2.1); ALBUMIN 4.2 g/dL (3.5-5.0); CALCIUM 9.9 mg/dL (8.4-10.2)
[2017-05-24 03:00] LABS: EOSINOPHIL 1 % (0-7); LYMPHOCYTE 5 % (20-50); MONOCYTE 2 % (0-10); NEUTROPHIL 92 % (42-75); PLATELET ESTIMATE NORMAL (NORMAL); TOTAL CELLS COUNTED 100
[2017-05-24 03:01] LABS: ANISOCYTOSIS SLIGHT
[2017-05-24 03:07] LABS: TROPONIN I 0.094 ng/mL (0.00-0.120)
[2017-05-24] MEDS ORDERED: Sod Polystyrene Sulf 15 gm/60 ml Oral Susp PO ONE (04:00)
[2017-05-24] MEDS ORDERED: Albuterol 0.083% Inhal Sol (2.5 mg/3 mL) UD INH ONE (04:01)
[2017-05-24] MEDS ORDERED: Azithromycin 500 MG in Sodium Chloride 0.9% 250 ML IVPB STA (04:23)
[2017-05-24] MEDS ORDERED: Azithromycin 500 MG IV IVPB ONE (04:33)
--- NOTE | 2017-05-24 04:48 | CP.PCM.HP ---
History of Present Illness - History of Present Illness History of Present Illness: PMD: Dr Jimenez Chief Complaint: SOB HPI: 77 years old male last admitted to the [facility] on and discharged 05/18/17 with dx of Pneumonia, has hx of HTN, CAD, HLD, ESRD oh Hemodialysis and CHF comes with one day of Diarrhea, worsening SOB, nausea with retching and diaphoresis. No fever, chills, Palpitations nor urinary symptoms. PMH; CAD ([place]), CHF, Diabetes, HTN, HLD, End Stage Renal Disease on Hemodialysis M W F; Pneumonia. PSH; Right A-V fistula for dialysis; Coronary stent X4 placement FH: HTN SH: Heavy smoker; No alcohol; No illegal drug use. Allergies: Sulfa and Milk Present on Admission - Present on Admission Any Indicators Present on Admission: Yes History of DVT/PE: No History of Uncontrolled Diabetes: Yes Urinary Catheter: No Decubitus Ulcer Present: No Review of Systems - Review of Systems Systems not reviewed;Unavailable: Respiratory Distress - Constitutional Constitutional: Excessive Sweating. absent: Chills, Fever, Headache, Lethargy - EENT Eyes: Requires Corrective Lenses. absent: Diplopia, Floaters, Itchy Eyes, Photophobia Ears: Decreased Hearing. absent: Ear Pain Nose/Mouth/Throat: absent: Epistaxis, Nasal Congestion, Sinus Pain, Sinus Pressure - Cardiovascular Cardiovascular: Diaphoresis, Dyspnea. absent: Chest Pain, Edema - Respiratory Respiratory: Cough, Dyspnea, Chest Congestion. absent: Wheezing, Stridor - Musculoskeletal Musculoskeletal: absent: Arthralgias, Muscle Cramps, Numbness, Stiffness - Integumentary Integumentary: absent: Rash, Skin Pain, Skin Ulcer, Sores, Striae, Swelling - Neurological Neurological: absent: Confusion, Focal Weakness, Headaches, Weakness - Psychiatric Psychiatric: absent: Anxiety, Depression, Hopelessness, Panic Attacks - Endocrine Endocrine: absent: Palpitations, Polydipsia, Polyphagia, Polyuria - Hematologic/Lymphatic Hematologic: absent: Easy Bleeding, Easy Bruising Past Patient History - Infectious Disease Hx of Infectious Diseases: None - Tetanus Immunizations Tetanus Immunization: Unknown - Past Medical History & Family History Past Medical History?: Yes - Past Social History Smoking Status: Heavy Smoker > 10 Cigarettes Daily Chewing Tobacco Use: No Cigar Use: No Alcohol: Social Drugs: Denies - CARDIAC Hx Congestive Heart Failure: Yes Hx Hypercholesterolemia: Yes Hx Hypertension: Yes - PULMONARY Hx Pneumonia: Yes - NEUROLOGICAL Hx Neurological Disorder: No - HEENT Hx HEENT Problems: Yes - RENAL Hx Chronic Kidney Disease: Yes Hx Kidney Stones: No - ENDOCRINE/METABOLIC Hx Endocrine Disorders: Yes Hx Diabetes Mellitus Type 2: Yes - HEMATOLOGICAL/ONCOLOGICAL Hx Human Immunodeficiency Virus (HIV): No - INTEGUMENTARY Hx Cellulitis: Yes - MUSCULOSKELETAL/RHEUMATOLOGICAL Hx Musculoskeletal Disorders: No - GASTROINTESTINAL Hx Gastrointestinal Disorders: Yes Hx Colitis: Yes Hx Gastroesophageal Reflux: Yes Other/Comment: Hx Salmonella Gastroenteritis - GENITOURINARY/GYNECOLOGICAL Hx Genitourinary Disorders: No - PSYCHIATRIC Hx Substance Use: No - SURGICAL HISTORY Hx Coronary Stent: Yes (x4) - ANESTHESIA Hx Anesthesia: Yes Hx Anesthesia Reactions: No Hx Malignant Hyperthermia: No Meds Allergies/Adverse Reactions: Allergies Allergy/AdvReac Type Severity Reaction Status Date / Time Sulfa (Sulfonamide Allergy PAIN Verified 05/24/17 01:38 Antibiotics) milk AdvReac NAUSEA Verified 05/24/17 01:38 Physical Exam - Head Exam Head Exam: ATRAUMATIC, NORMAL INSPECTION, NORMOCEPHALIC - Eye Exam Eye Exam: EOMI, Normal appearance Pupil Exam: NORMAL ACCOMODATION, PERRL - ENT Exam ENT Exam: Mucous Membranes Moist, Normal Exam, Normal External Ear Exam, Normal Oropharynx - Neck Exam Neck exam: Positive for: Full Rom, Normal Inspection. Negative for: Tenderness , Thyromegaly - Respiratory Exam Respiratory Exam: Rales. absent: Rhonchi, Wheezes - Cardiovascular Exam Cardiovascular Exam: REGULAR RHYTHM, RRR, +S1, +S2. absent: JVD - GI/Abdominal Exam Additional comments: obese, soft, +ve bowel sounds, non tender on palpation - Rectal Exam Rectal Exam: Deferred - Extremities Exam Extremities exam: Positive for: normal inspection. Negative for: full ROM, joint swelling, pedal edema, tenderness - Back Exam Back exam: NORMAL INSPECTION. absent: CVA tenderness (L), CVA tenderness (R) - Neurological Exam Neurological exam: Alert, CN II-XII Intact, Oriented x3, Reflexes Normal - Psychiatric Exam Psychiatric exam: Normal Affect, Normal Mood - Skin Skin Exam: Dry, Intact, Normal Color, Warm Results - Vital Signs Recent Vital Signs: Last Vital Signs Temp 99.0 F 05/24/17 01:38 Pulse 99 H 05/24/17 04:05 Resp 20 05/24/17 04:05 BP 124/65 05/24/17 04:07 Pulse Ox 92 L 05/24/17 04:47 - Labs Result Diagrams: 05/24/17 02:10 05/24/17 02:10 Labs: Laboratory Results - last 24 hr 05/24/17 05/24/17 02:10 02:10 WBC 14.8 H RBC 3.71 L Hgb 10.7 L D Hct 33.2 L MCV 89.5 MCH 28.8 MCHC 32.2 L RDW 15.3 H Plt Count 192 MPV 8.0 Neut % (Auto) 89.3 H Lymph % (Auto) 4.3 L [place] % (Auto) 4.8 Eos % (Auto) 0.8 Baso % (Auto) 0.8 Neut # 13.2 H Lymph # 0.6 L [place] # 0.7 Eos # 0.1 Baso # 0.1 Neutrophils % (Manual) 92 H Lymphocytes % (Manual) 5 L Monocytes % (Manual) 2 Eosinophils % (Manual) 1 Platelet Estimate Normal Anisocytosis (manual) Slight Sodium 141 Potassium 5.7 H Chloride 96 L Carbon Dioxide 27 Anion Gap 24 H BUN 73 H Creatinine 11.1 H* Est GFR ( Amer) 5 Est GFR (Non-Af Amer) 5 Random Glucose 157 H Calcium 9.9 Total Bilirubin 0.8 AST 22 ALT 30 Alkaline Phosphatase 70 Troponin I 0.0940 NT-Pro-B Natriuret Pep 87022 H Total Protein 7.3 Albumin 4.2 Globulin 3.1 Albumin/Globulin Ratio 1.3 - Imaging and Cardiology Chest x-ray Status: Image reviewed by me Additional comment: Pleural effusion at the left base with an infiltrate at the right cordio- phrenic angle. Assessment & Plan - Assessment and Plan (Free Text) Plan: 77 years old male last admitted to the [facility] on 05/10/17 and discharged 05/18/17 with dx of Pneumonia, has hx of HTN, CAD, HLD, ESRD oh Hemodialysis and CHF comes with one day of Diarrhea, worsening SOB, nausea with retching and diaphoresis. No fever, chills, Palpitations nor urinary symptoms. #. Acute CHF with Volume overload - No Lasix IV as pte is anuric - Dialysis to remove fluid - Metoprolol #. ESRD on HD - consult Dr Ortiz nephrology - Dialysis #. Recently treated Pneumonia. - Procalcitonin, If elevated continue Zosyn #. Anemia of Chronic Disease - follow Hb #. DM II with hyperglycemia - Diabetic diet - Regular Insulin with sliding scale according to accucheck #. Leukocytosis reactive - Follow WBC #. CAD s/p Stents placement ASA/ Brilinta/ Metoprolol/ Pravastatin #. HTN - Metoprolol #. DVT prophylaxis: patient on Sub Q Heparin #. Code Status Full - Date & Time Date: 05/24/17 Time: 04:48
[2017-05-24] MEDS ORDERED: Ergocalciferol 50,000 Intl Units Cap PO SCH (05:15)
[2017-05-24] MEDS: Insulin Lispro (humaLOG) 100 Units/ml Inj SC SCH ×3 (06:44→17:10)
--- NOTE | 2017-05-24 08:13 | RAD ---
HISTORY: sob COMPARISON: 05/09/2017 FINDINGS: LUNGS: No active pulmonary disease. PLEURA: No significant pleural effusion identified, no pneumothorax apparent. CARDIOVASCULAR: Cardiomegaly, improving CHF compared to the prior study May 09, 2017. OSSEOUS STRUCTURES: No significant abnormalities. VISUALIZED UPPER ABDOMEN: Normal. OTHER FINDINGS: None. IMPRESSION: Improving CHF. No active pulmonary disease.
[2017-05-24] MEDS ORDERED: APPL TD SCH (09:00)
[2017-05-24] MEDS ORDERED: Pantoprazole 40 mg EC Tab PO SCH (09:00)
[2017-05-24] MEDS ORDERED: Metoprolol Succinate 25 mg XL Tab PO SCH (09:00)
[2017-05-24] MEDS ORDERED: MOMETASONE 0.1% TD SCH (09:00)
--- NOTE | 2017-05-24 10:32 | CP.PCM.PN ---
Subjective - Date & Time of Evaluation Date of Evaluation: 05/24/17 Time of Evaluation: 10:29 - Subjective Subjective: This patient who is 77 years old admitted with increasing shortness of breath difficulty breathing patient due to have dialysis today he is Wednesday and he goes outpatient to dialysis unit. He was just discharged from [facility] recently last week with pneumonia and volume overloaded PMH; CAD ([place]), CHF, Diabetes, HTN, HLD, End Stage Renal Disease on Hemodialysis M W F; Pneumonia. PSH; Right A-V fistula for dialysis; Coronary stent X4 placement FH: HTN SH: Heavy smoker; No alcohol; No illegal drug use. Allergies: Sulfa and Milk Objective - Vital Signs/Intake and Output Vital Signs (last 24 hours): Temp Pulse Resp BP Pulse Ox 98.2 F 92 H 20 134/73 95 05/24/17 08:03 05/24/17 10:00 05/24/17 08:03 05/24/17 10:00 05/24/17 08:03 - Medications Medications: Current Medications Aspirin (Ecotrin) 81 mg PO DAILY [facility] Last Admin: 05/24/17 09:57 Dose: 81 mg Calcium Acetate (Phoslo) 2,001 mg PO TIDPC [facility] Last Admin: 05/24/17 09:58 Dose: 2,001 mg Cinacalcet (Sensipar) 30 mg PO DAILY [facility] Last Admin: 05/24/17 10:00 Dose: 30 mg Enalapril Maleate (Vasotec) 2.5 mg PO DAILY [facility] Last Admin: 05/24/17 10:01 Dose: Not Given Ergocalciferol (Drisdol 50,000 Intl Units Cap) 1 cap PO QWK [facility] Heparin Sodium (Porcine) (Heparin) 5,000 units SC Q12 [facility] PRN Reason: Protocol Last Admin: 05/24/17 09:57 Dose: 5,000 units Home Med (Mometasone 0.1% [Elocon Cream]) 1 appl TD DAILY [facility] Insulin Detemir (Levemir) 10 units SC HS [facility] Insulin Human Lispro (Humalog) 0 units SC ACHS [facility] PRN Reason: Protocol Last Admin: 05/24/17 06:44 Dose: Not Given Metoprolol Succinate (Toprol Xl) 25 mg PO DAILY [facility] Last Admin: 05/24/17 10:00 Dose: Not Given Pantoprazole Sodium (Protonix Ec Tab) 40 mg PO DAILY [facility] Last Admin: 05/24/17 09:59 Dose: 40 mg Pravastatin Sodium (Pravachol) 40 mg PO [facility] Ticagrelor (Brilinta) 90 mg PO BID [facility] Last Admin: 05/24/17 09:56 Dose: 90 mg - Constitutional Appears: No Acute Distress - Respiratory Exam Respiratory Exam: Rhonchi. absent: Chest Wall Tenderness - Cardiovascular Exam Cardiovascular Exam: JVD. absent: Rubs - GI/Abdominal Exam GI & Abdominal Exam: Normal Bowel Sounds - Extremities Exam Extremities Exam: absent: Calf Tenderness - Back Exam Back Exam: absent: CVA tenderness (L), CVA tenderness (R) - Neurological Exam Neurological Exam: Alert Assessment and Plan (1) CKD (chronic kidney disease) stage V requiring chronic dialysis Assessment & Plan: Patient with end stage renal disease admitted with shortness of breath and volume overloaded. Patient scheduled to have dialysis and he moment Patient has multiple admission between this hospital and other hospital with his past medical history as noted above Patient will require to remove about 2500 mL of fluid as tolerated Dietitian bath to milliequivalents Bicarbonate bath 34 Sodium bath 138 Status: Acute
--- NOTE | 2017-05-24 11:16 | CP.PCM.DIS ---
Provider - Provider Date of Admission: 05/24/17 03:00 Attending physician: Andreas Penaloza Primary care physician: Dr. Nuñez Consults: Nephrology consult Time Spent in preparation of Discharge (in minutes): 15 Hospital Course - Lab Results Lab Results: Most Recent Lab Values WBC 14.8 K/uL (4.8-10.8) H 05/24/17 02:10 RBC 3.71 Mil/uL (4.40-5.90) L 05/24/17 02:10 Hgb 10.7 g/dL (12.0-18.0) L D 05/24/17 02:10 Hct 33.2 % (35.0-51.0) L 05/24/17 02:10 MCV 89.5 fl (80.0-94.0) 05/24/17 02:10 MCH 28.8 pg (27.0-31.0) 05/24/17 02:10 MCHC 32.2 g/dL (33.0-37.0) L 05/24/17 02:10 RDW 15.3 % (11.5-14.5) H 05/24/17 02:10 Plt Count 192 K/uL (130-400) 05/24/17 02:10 MPV 8.0 fl (7.2-11.7) 05/24/17 02:10 Neut % (Auto) 89.3 % (50.0-75.0) H 05/24/17 02:10 Lymph % (Auto) 4.3 % (20.0-40.0) L 05/24/17 02:10 [place] % (Auto) 4.8 % (0.0-10.0) 05/24/17 02:10 Eos % (Auto) 0.8 % (0.0-4.0) 05/24/17 02:10 Baso % (Auto) 0.8 % (0.0-2.0) 05/24/17 02:10 Neut # 13.2 K/uL (1.8-7.0) H 05/24/17 02:10 Lymph # 0.6 K/uL (1.0-4.3) L 05/24/17 02:10 [place] # 0.7 K/uL (0.0-0.8) 05/24/17 02:10 Eos # 0.1 K/uL (0.0-0.7) 05/24/17 02:10 Baso # 0.1 K/uL (0.0-0.2) 05/24/17 02:10 Neutrophils % (Manual) 92 % (42-75) H 05/24/17 02:10 Lymphocytes % (Manual) 5 % (20-50) L 05/24/17 02:10 Monocytes % (Manual) 2 % (0-10) 05/24/17 02:10 Eosinophils % (Manual) 1 % (0-7) 05/24/17 02:10 Platelet Estimate Normal (NORMAL) 05/24/17 02:10 Anisocytosis (manual) Slight 05/24/17 02:10 Sodium 141 mmol/l (132-148) 05/24/17 02:10 Potassium 5.7 MMOL/L (3.6-5.0) H 05/24/17 02:10 Chloride 96 mmol/L (98-107) L 05/24/17 02:10 Carbon Dioxide 27 mmol/L (22-30) 05/24/17 02:10 Anion Gap 24 (10-20) H 05/24/17 02:10 BUN 73 mg/dl (9-20) H 05/24/17 02:10 Creatinine 11.1 mg/dL (0.8-1.5) H* 05/24/17 02:10 Est GFR ( Amer) 5 05/24/17 02:10 Est GFR (Non-Af Amer) 5 05/24/17 02:10 POC Glucose (mg/dL) 110 mg/dL (65-110) 05/24/17 05:57 Random Glucose 157 mg/dL (75-110) H 05/24/17 02:10 Calcium 9.9 mg/dL (8.4-10.2) 05/24/17 02:10 Total Bilirubin 0.8 mg/dl (0.2-1.3) 05/24/17 02:10 AST 22 U/L (17-59) 05/24/17 02:10 ALT 30 U/L (21-72) 05/24/17 02:10 Alkaline Phosphatase 70 U/L (38-126) 05/24/17 02:10 Troponin I 0.0940 ng/mL (0.00-0.120) 05/24/17 02:10 NT-Pro-B Natriuret Pep 83947 pg/ml (0-900) H 05/24/17 02:10 Total Protein 7.3 G/DL (6.3-8.2) 05/24/17 02:10 Albumin 4.2 g/dL (3.5-5.0) 05/24/17 02:10 Globulin 3.1 gm/dL (2.2-3.9) 05/24/17 02:10 Albumin/Globulin Ratio 1.3 (1.0-2.1) 05/24/17 02:10 - Hospital Course Hospital Course: 77 years old male last admitted to the [facility] on 05/10/17 and discharged 05/18/17 with dx of Pneumonia, has hx of HTN, CAD, HLD, ESRD oh Hemodialysis and CHF comes with one day of Diarrhea,soft BM , worsening SOB, nausea with retching and diaphoresis. No fever, chills, Palpitations nor urinary symptoms.Patient found to have volume overload with CXR showing vascular congestion and BNP elevated 10442.Nephrology consulted .Patient to have HD and discharged home. 1. Acute systolic CHF exacerbation with Volume overload No Lasix IV as patient is anuric nepro consulted Will have HD today with 2500 ml fluid removal Dialysis to remove fluid .Continue with HD as scheduled MWF. 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 Recently treated Pneumonia. CXr does not show any infiltrates no need for antibiotics 4. Anemia of Chronic Disease 5. DM II with hyperglycemia Diabetic diet Regular Insulin with sliding scale according to accucheck Continuec Levemir 6. Leukocytosis-- most likely reactive 7. CAD s/p Stents placement ASA/ Brilinta/ Metoprolol/ Pravastatin 8. HTN on Metoprolol 9. DVT prophylaxis: patient on Sub Q Heparin Discharge Exam - Head Exam Head Exam: ATRAUMATIC, NORMAL INSPECTION, NORMOCEPHALIC Additional comments: obese - Eye Exam Eye Exam: EOMI, Normal appearance, PERRL Pupil Exam: NORMAL ACCOMODATION - ENT Exam ENT Exam: Mucous Membranes Moist, Normal Exam - Neck Exam Neck exam: Full Rom, Normal Inspection - Respiratory Exam Respiratory Exam: Clear to PA & Lateral, Rales (bilateral). absent: Rhonchi, Wheezes - Cardiovascular Exam Cardiovascular Exam: REGULAR RHYTHM, RRR, +S1, +S2. absent: JVD - GI/Abdominal Exam GI & Abdominal Exam: Normal Bowel Sounds, Soft. absent: Guarding, Rebound, Tenderness, Unremarkable - Rectal Exam Rectal Exam: Deferred - Extremities Exam Extremities exam: normal capillary refill, normal inspection, pedal pulses present - Back Exam Back exam: NORMAL INSPECTION - Neurological Exam Neurological exam: Alert, CN II-XII Intact, Oriented x3, Reflexes Normal - Psychiatric Exam Psychiatric exam: Normal Affect, Normal Mood - Skin Skin Exam: Dry, Intact, Normal Color, Warm Discharge Plan - Discharge Medications Prescriptions: Ticagrelor [Brilinta] 90 mg PO BID #60 tab - Follow Up Plan Condition: IMPROVED Disposition: HOME/ ROUTINE Patient education suggested?: Yes Instructions: Hemodialysis (DC), Dyspnea (GEN), Heart Failure (DC) Additional Instructions: follow up with dr Hathaway and primary doctor. Referrals: Cecilio Hathaway MD [Medical Doctor] - Eric Nuñez MD [Staff Provider] -
[2017-05-24 11:23] LABS: BASO # 0.1 K/uL (0.0-0.2); BASO % 0.8 % (0.0-2.0); EOS # 0.1 K/uL (0.0-0.7); EOS % 1.4 % (0.0-4.0); HEMOGLOBIN 10.7 g/dL (12.0-18.0); LYMPH % 11.4 % (20.0-40.0); MEAN CELL VOLUME 89.7 fl (80.0-94.0); MEAN CORPUSCULAR HEMOGLOBIN 29.5 pg (27.0-31.0); MEAN CORPUSCULAR HGB CONC 32.9 g/dL (33.0-37.0); MONO # 0.6 K/uL (0.0-0.8); MONO % 7.2 % (0.0-10.0); NEUT # 6.8 K/uL (1.8-7.0); NEUT % 79.2 % (50.0-75.0); RBC 3.63 Mil/uL (4.40-5.90); RED CELL DISTRIBUTION WIDTH 15.6 % (11.5-14.5); WHITE BLOOD COUNT 8.6 K/uL (4.8-10.8)
[2017-05-24 12:38] VITALS: RESP 18
[2017-05-24 16:02] VITALS: BP 107/53; PULSE 91; TEMP 97.5; O2SAT 93
[2017-05-24] MEDS ORDERED: Pravastatin Sodium 40 MG TAB PO SCH (22:00)
[2017-05-24] MEDS ORDERED: Insulin Detemir 100 Units/ml Inj SC SCH (22:00)
[2017-05-24 22:21] LABS: HEPATITIS B SURFACE AG NEGATIVE (NEGATIVE)
[2017-05-24 22:38] LABS: HEPATITIS C ANTIBODY NEGATIVE (NEGATIVE)
== END 2017-05-24 17:30 | disposition home or self-care (01) ==
LOC: H.ER 01:19 → H.ERHOLD 03:00 → INTOOBSV 03:00 → H.TEL 05:24
PROVIDERS: ADMIT Internal Medicine; ATTEND Internal Medicine
DX: I13.2 Hypertensive heart and chronic kidney disease with heart failure and with stage 5 chronic kidney disease, or end stage renal disease (principal); I50.23 Acute on chronic systolic (congestive) heart failure; N18.6 End stage renal disease; E11.22 Type 2 diabetes mellitus with diabetic chronic kidney disease; D63.1 Anemia in chronic kidney disease; E78.5 Hyperlipidemia, unspecified; E78.00 Pure hypercholesterolemia, unspecified; E11.65 Type 2 diabetes mellitus with hyperglycemia; I25.10 Atherosclerotic heart disease of native coronary artery without angina pectoris; K21.9 Gastro-esophageal reflux disease without esophagitis; F17.210 Nicotine dependence, cigarettes, uncomplicated; Z99.2 Dependence on renal dialysis; Z79.4 Long term (current) use of insulin; Z87.01 Personal history of pneumonia (recurrent); Z95.5 Presence of coronary angioplasty implant and graft; Z88.2 Allergy status to sulfonamides; Z91.011 Allergy to milk products
CPT/HCPCS: 71010; 80053; 82948; 83880; 84145; 84484; 85025; 86706; 86803; 87040; 87340; 96365; 96367; 96368; 96372; 96375; 99285; G0378; J0456; J1644; J1940; J2543; J3370; J7050

== ENCOUNTER 2017-07-05 00:16 | Inpatient (IN) | payer MEDICARE ==
[2017-07-05 00:36] VITALS: BMI 36.3
[2017-07-05 00:40] LABS: VENOUS BLOOD GAS BASE EXCESS 0.8 mmol/L (0.0-2.0); VENOUS BLOOD GAS PCO2 56 mmHg (40-60); VENOUS BLOOD PH 7.31 (7.32-7.43)
[2017-07-05 00:46] LABS: BASO # 0.1 K/uL (0.0-0.2); BASO % 0.7 % (0.0-2.0); EOS # 0.3 K/uL (0.0-0.7); EOS % 2.5 % (0.0-4.0); HEMATOCRIT 35.6 % (35.0-51.0); LYMPH # 2.9 K/uL (1.0-4.3); LYMPH % 23.3 % (20.0-40.0); MEAN CELL VOLUME 90.5 fl (80.0-94.0); MEAN CORPUSCULAR HEMOGLOBIN 28.6 pg (27.0-31.0); MEAN CORPUSCULAR HGB CONC 31.6 g/dL (33.0-37.0); MEAN PLATELET VOLUME 8.7 fl (7.2-11.7); MONO # 0.6 K/uL (0.0-0.8); MONO % 4.9 % (0.0-10.0); NEUT # 8.5 K/uL (1.8-7.0); NEUT % 68.6 % (50.0-75.0); NRBC % 0.1 % (0.0-0.0); RED CELL DISTRIBUTION WIDTH 15.4 % (11.5-14.5); WHITE BLOOD COUNT 12.4 K/uL (4.8-10.8)
[2017-07-05 00:52] LABS: ABG ALLEN TEST YES; ABG MECHANICAL RATE 20; ARTERIAL BLOOD GAS HCO3 25.9 mmol/L (21-28); ARTERIAL BLOOD GAS PH 7.39 (7.35-7.45); ARTERIAL BLOOD GAS PO2 164 mm/Hg (80-100)
--- NOTE | 2017-07-05 00:53 | ED PDOC ---
HPI: SOB/CHF/COPD Time Seen by Provider: 07/05/17 00:21 Chief Complaint (Nursing): Shortness Of Breath Chief Complaint (Provider): Shortness of Breath History Per: Patient History/Exam Limitations: clinical condition Onset/Duration Of Symptoms: Mins (x25-30 mins [employer]) Current Symptoms Are (Timing): Still Present Additional Complaint(s): 77 year old male brought in by EMS on CPAP presents to ED with complaints of SOB x25-30 minutes [employer] and has a past medical history of HTN, CAD, DM, CHF, and end stage renal disease. Patient is unable to give a complete history due to clinical condition. EMS states patient's condition improved slightly secondary to CPAP. Notes that patient gets MWF dialysis, last received dialysis x3 days ago and is due for dialysis later today. Of note, EMS administered 1 Nitro spray to patient [employer]. PCP: Joaquin Past Medical History Reviewed: Historical Data, Nursing Documentation, Vital Signs Vital Signs: Last Vital Signs Temp 97.9 F 07/05/17 05:20 Pulse 75 07/05/17 05:20 Resp 20 07/05/17 05:20 BP 103/58 L 07/05/17 05:20 Pulse Ox 100 07/05/17 05:20 - Medical History PMH: CAD ([place]), CHF, Diabetes, HTN, Hypercholesterolemia, Pneumonia, End Stage Renal Disease, Chronic Kidney Disease Denies: HIV, Kidney Stones - Surgical History Surgical History: Coronary Stent (x4) - Family History Family History: States: Unknown Family Hx, Hypertension - Living Arrangements Living Arrangements: With Family - Social History Current smoker - smoking cessation education provided: Yes Ex-Smoker (has not smoked in the last 12 months): No Alcohol: None Drugs: Denies - Home Medications Home Medications: Ambulatory Orders Medication Instructions Recorded Aspirin [Ecotrin] 81 mg PO DAILY 09/16/16 Calcium Acetate [Phoslo] 3 tab PO TIDPC 09/16/16 Cinacalcet [Sensipar] 30 mg PO DAILY 09/16/16 Ergocalciferol (Vitamin D2) 50,000 iu PO QWK 09/16/16 [Vitamin D2] Insulin Glargine, Recombina 10 units SQ DAILY 09/16/16 [Lantus] Insulin Lispro [Humalog Kwikpen 4 units SQ TID 09/16/16 U-100] Pravastatin Sodium 40 mg PO HS 09/16/16 Metoprolol Succinate [Toprol Xl] 1 tab PO DAILY 05/24/17 Mometasone 0.1% [Elocon Cream] 1 appl TD DAILY 05/24/17 Omeprazole 40 mg PO DAILY 05/24/17 Ticagrelor [Brilinta] 90 mg PO BID #60 tab 05/24/17 - Allergies Allergies/Adverse Reactions: Allergies Allergy/AdvReac Type Severity Reaction Status Date / Time Sulfa (Sulfonamide Allergy PAIN Verified 07/05/17 00:35 Antibiotics) milk AdvReac NAUSEA Verified 07/05/17 00:35 Curb-65 Severity Score - CURB-65 Severity Score Confusion: No Respiratory Rate greater than/equal to 30: No Systolic BP <90 or Diastolic BP less than/equal 60mmHg: No Age >64: Yes Curb-65 Score: 1 Percentage 30-day mortality: 2.7% Wells Criteria for PE - Wells Criteria for Pulmonary Embolism Heart Rate >100: Yes Hemoptysis: No Total Score: 1.5 Review of Systems Review Of Systems: ROS cannot be obtained secondary to pt's inabilty to answer questions. (Patient is unable to speak audibly secondary to SOB and CPAP.) Physical Exam - Reviewed Nursing Documentation Reviewed: Yes Vital Signs Reviewed: Yes - Physical Exam Appears: Positive for: Non-toxic, In Acute Distress Head Exam: Positive for: ATRAUMATIC, NORMOCEPHALIC Skin: Positive for: Normal Color Eye Exam: Positive for: Normal appearance ENT: Positive for: Normal ENT Inspection Neck: Positive for: Normal Cardiovascular/Chest: Positive for: Regular Rate, Rhythm, Tachycardia Respiratory: Positive for: Crackles (throughout lungs), Rales (throughout lungs) , Respiratory Distress, Other (labored breathing, tachypnic). Negative for: Normal Breath Sounds Gastrointestinal/Abdominal: Positive for: Soft. Negative for: Tenderness Back: Positive for: Normal Inspection Extremity: Positive for: Normal ROM, Other (pitting edema bilaterally). Negative for: Deformity Neurologic/Psych: Positive for: Alert, Oriented. Negative for: Motor/Sensory Deficits - Laboratory Results Result Diagrams: 07/05/17 00:41 07/05/17 00:41 - ECG ECG: Positive for: Interpreted By Me, Viewed By Me ECG Rhythm: Positive for: Sinus Tachycardia Interpretation Of ECG: Left atrial enlargement. No ST elevation. Sinus tachycardia. Consistent with prior EKGs. Rate: 111 O2 Sat by Pulse Oximetry: 100 (on CPAP) Pulse Ox Interpretation: Normal Medical Decision Making Medical Decision Makin Initial impression: fluid overload r/o CHF v end stage renal disease Initial plan: * T&S * ABG * VBG * EKG * Labs * CPK * Lipase * Magnesium * Phosphorus * Trop I * Trop I Q8H * PTT/PT * CXR * BCx pts cxr appears to be fluid overload, combined with eleevated bnp pt was given nitro in the field. [address] Penaloza, hospitalist tony sullivan who will admit patient under INPATIENT TELEMETRY. Scribe Attestation: Documented by Suzan Sheets acting as a scribe for Delano Arredondo MD. Scribe Attestation: All medical record entries made by the Scribe were at my direction and personally dictated by me. I have reviewed the chart and agree that the record accurately reflects my personal performance of the history, physical exam, medical decision making, and the department course for this patient. I have also personally directed, reviewed, and agree with the discharge instructions and disposition. Disposition - Clinical Impression Clinical Impression: CHF (congestive heart failure), Chronic kidney disease requiring chronic dialysis, Respiratory distress - Patient ED Disposition Is Patient to be Admitted: Yes Counseled Patient/Family Regarding: Diagnosis - Disposition Disposition Time: 01:20 Condition: STABLE
[2017-07-05 00:54] LABS: ALB/GLOB RATIO 1.3 (1.0-2.1); BILIRUBIN,TOTAL 0.7 mg/dl (0.2-1.3); CALCIUM 9.9 mg/dL (8.4-10.2); MAGNESIUM 1.9 MG/DL (1.6-2.3); PHOSPHOROUS 3.7 mg/dl (2.5-4.5); POTASSIUM 4.7 MMOL/L (3.6-5.0); TOTAL PROTEIN 7.7 G/DL (6.3-8.2)
[2017-07-05 01:02] LABS: PARTIAL THROMBOPLASTIN TIME 27.3 Seconds (25.6-37.1)
[2017-07-05 01:06] LABS: TROPONIN I 0.054 ng/mL (0.00-0.120)
--- NOTE | 2017-07-05 02:32 | CP.PCM.HP ---
History of Present Illness - History of Present Illness History of Present Illness: PMD: Dr Jimenez Chief Complaint: SOB HPI: 77 years old male last admitted to to the [facility] on 05/24 and discharged 06/24/17 with dx of volume overload. He comes to the ED on CPAP with Sudden worsening of SOB with chest tightness and palpitation. He has hx of HTN, CAD, HLD, ESRD oh Hemodialysis and CHF. No fever, chills, nor urinary symptoms. In the ED he was in severe SOB not being able to speak full sentences. PMH; CAD ([place]), CHF, Diabetes, HTN, HLD, End Stage Renal Disease on Hemodialysis M W [facility]; Pneumonia. PSH; Right A-V fistula for dialysis; Coronary stent X4 placement FH: HTN SH: Heavy smoker; No alcohol; No illegal drug use; live with the family Allergies: Sulfa and Milk Present on Admission - Present on Admission Any Indicators Present on Admission: Yes History of DVT/PE: No History of Uncontrolled Diabetes: Yes Urinary Catheter: No Decubitus Ulcer Present: No Review of Systems - Constitutional Constitutional: absent: Anorexia, Chills, Fever, Lethargy - EENT Eyes: Requires Corrective Lenses. absent: Blurred Vision, Diplopia, Floaters, Sees Flashes Ears: absent: Decreased Hearing, Ear Discharge, Tinnitus Nose/Mouth/Throat: absent: Epistaxis, Nasal Congestion, Nasal Discharge - Cardiovascular Cardiovascular: Chest Pain, Dyspnea. absent: Edema, Leg Edema - Respiratory Respiratory: Dyspnea. absent: Cough, Wheezing, Stridor - Gastrointestinal Gastrointestinal: absent: Constipation, Diarrhea, Nausea, Vomiting - Genitourinary Genitourinary: absent: Dysuria, Flank Pain, Urinary Frequency - Musculoskeletal Musculoskeletal: absent: Arthralgias, Myalgias, Neck Pain - Integumentary Integumentary: absent: Pruritus, Rash, Skin Ulcer, Sores, Swelling - Neurological Neurological: absent: Confusion, Numbness, Focal Weakness, Paresthesias, Weakness - Psychiatric Psychiatric: absent: Anxiety, Depression, Panic Attacks - Endocrine Endocrine: absent: Palpitations, Polydipsia, Polyphagia, Polyuria - Hematologic/Lymphatic Hematologic: absent: Easy Bleeding, Easy Bruising Past Patient History - Infectious Disease Hx of Infectious Diseases: None - Tetanus Immunizations Tetanus Immunization: Unknown - Past Medical History & Family History Past Medical History?: Yes - Past Social History Smoking Status: Heavy Smoker > 10 Cigarettes Daily Chewing Tobacco Use: No Cigar Use: No Alcohol: None Drugs: Denies Home Situation {Lives}: With Family - CARDIAC Hx Congestive Heart Failure: Yes Hx Hypercholesterolemia: Yes Hx Hypertension: Yes - PULMONARY Hx Pneumonia: Yes - NEUROLOGICAL Hx Neurological Disorder: No - HEENT Hx HEENT Problems: No - RENAL Hx Chronic Kidney Disease: Yes Hx Kidney Stones: No - ENDOCRINE/METABOLIC Hx Endocrine Disorders: Yes Hx Diabetes Mellitus Type 2: Yes - HEMATOLOGICAL/ONCOLOGICAL Hx Human Immunodeficiency Virus (HIV): No - INTEGUMENTARY Hx Cellulitis: Yes - MUSCULOSKELETAL/RHEUMATOLOGICAL Hx Musculoskeletal Disorders: No - GASTROINTESTINAL Hx Gastrointestinal Disorders: Yes Hx Colitis: Yes Hx Gastroesophageal Reflux: Yes Other/Comment: Hx Salmonella Gastroenteritis - GENITOURINARY/GYNECOLOGICAL Hx Genitourinary Disorders: No - PSYCHIATRIC Hx Psychophysiologic Disorder: No Hx Substance Use: No - SURGICAL HISTORY Hx Coronary Stent: Yes (x4) - ANESTHESIA Hx Anesthesia: Yes Hx Anesthesia Reactions: No Hx Malignant Hyperthermia: No Meds Allergies/Adverse Reactions: Allergies Allergy/AdvReac Type Severity Reaction Status Date / Time Sulfa (Sulfonamide Allergy PAIN Verified 07/05/17 00:35 Antibiotics) milk AdvReac NAUSEA Verified 07/05/17 00:35 Physical Exam - Constitutional Appears: In Acute Distress - Head Exam Head Exam: ATRAUMATIC, NORMAL INSPECTION, NORMOCEPHALIC - Eye Exam Eye Exam: EOMI, Normal appearance Pupil Exam: NORMAL ACCOMODATION, PERRL - ENT Exam ENT Exam: Mucous Membranes Moist, Normal Exam - Neck Exam Neck exam: Positive for: Full Rom, Normal Inspection. Negative for: Lymphadenopathy, Tenderness - Respiratory Exam Additional comments: Distant breath sounds with fine rales at the left lung base - Cardiovascular Exam Cardiovascular Exam: REGULAR RHYTHM, RRR, +S1, +S2 - GI/Abdominal Exam Additional comments: Full, obese, soft, non tender, no viceromegales. - Rectal Exam Rectal Exam: Deferred - Extremities Exam Extremities exam: Positive for: full ROM, normal inspection. Negative for: calf tenderness - Back Exam Back exam: NORMAL INSPECTION. absent: CVA tenderness (L), CVA tenderness (R) - Neurological Exam Neurological exam: Alert, CN II-XII Intact, Oriented x3, Reflexes Normal - Psychiatric Exam Psychiatric exam: Normal Affect, Normal Mood - Skin Skin Exam: Dry, Intact, Normal Color, Warm Results - Vital Signs Recent Vital Signs: Last Vital Signs Temp 98.9 F 07/05/17 00:36 Pulse 111 H 07/05/17 02:07 Resp 28 H 07/05/17 00:36 BP 141/79 07/05/17 00:36 Pulse Ox 100 07/05/17 02:07 - Labs Result Diagrams: 07/05/17 00:41 07/05/17 00:41 Labs: Laboratory Results - last 24 hr 07/05/17 07/05/17 07/05/17 00:33 00:41 00:41 WBC 12.4 H RBC 3.94 L Hgb 11.3 L Hct 35.6 MCV 90.5 MCH 28.6 MCHC 31.6 L RDW 15.4 H Plt Count 284 D MPV 8.7 Neut % (Auto) 68.6 Lymph % (Auto) 23.3 [place] % (Auto) 4.9 Eos % (Auto) 2.5 Baso % (Auto) 0.7 Neut # 8.5 H Lymph # 2.9 [place] # 0.6 Eos # 0.3 Baso # 0.1 PT INR APTT pCO2 pO2 30 HCO3 ABG pH ABG Total CO2 ABG O2 Saturation ABG Base Excess Manuel Test ABG Potassium VBG pH 7.31 L VBG pCO2 56 VBG HCO3 24.3 VBG Total CO2 29.9 H VBG O2 Sat (Calc) 55.5 VBG Base Excess 0.8 VBG Potassium 6.4 H* A-a O2 Difference Sodium 137.0 141 Chloride 99.0 97 L Glucose 208 H Lactate 3.5 H Mechanical Rate FiO2 100.0 Inspiratory BiPAP Expiratory BiPAP Crit Value Called To pawan Arredondo md Crit Value Called By 302 Crit Value Read Back Y Blood Gas Notified Time 40 Potassium 4.7 Carbon Dioxide 25 Anion Gap 24 H BUN 65 H Creatinine 10.4 H* Est GFR ( Amer) 6 Est GFR (Non-Af Amer) 5 Random Glucose 195 H Calcium 9.9 Phosphorus 3.7 Magnesium 1.9 Total Bilirubin 0.7 AST 32 ALT 34 Alkaline Phosphatase 86 Total Creatine Kinase 54 L Troponin I 0.0540 NT-Pro-B Natriuret Pep 95234 H Total Protein 7.7 Albumin 4.4 Globulin 3.3 Albumin/Globulin Ratio 1.3 Lipase 178 Arterial Blood Potassium Venous Blood Potassium 6.4 H* 07/05/17 07/05/17 00:41 00:47 WBC RBC Hgb Hct MCV MCH MCHC RDW Plt Count MPV Neut % (Auto) Lymph % (Auto) [place] % (Auto) Eos % (Auto) Baso % (Auto) Neut # Lymph # [place] # Eos # Baso # PT 11.6 INR 1.1 APTT 27.3 pCO2 44 pO2 164 H HCO3 25.9 ABG pH 7.39 ABG Total CO2 28.0 ABG O2 Saturation 100.2 H ABG Base Excess 1.2 Manuel Test Yes ABG Potassium 4.1 VBG pH VBG pCO2 VBG HCO3 VBG Total CO2 VBG O2 Sat (Calc) VBG Base Excess VBG Potassium A-a O2 Difference 494.0 Sodium 137.0 Chloride 100.0 Glucose 223 H Lactate 1.8 Mechanical Rate 20 FiO2 100.0 Inspiratory BiPAP 16 Expiratory BiPAP 5 Crit Value Called To Crit Value Called By Crit Value Read Back Blood Gas Notified Time Potassium Carbon Dioxide Anion Gap BUN Creatinine Est GFR ( Amer) Est GFR (Non-Af Amer) Random Glucose Calcium Phosphorus Magnesium Total Bilirubin AST ALT Alkaline Phosphatase Total Creatine Kinase Troponin I NT-Pro-B Natriuret Pep Total Protein Albumin Globulin Albumin/Globulin Ratio Lipase Arterial Blood Potassium 4.1 Venous Blood Potassium - Imaging and Cardiology Chest x-ray Status: Image reviewed by me Additional comment: Cardiomegaly Bibasal infiltrate with left hilar infiltrate Assessment & Plan - Assessment and Plan (Free Text) Plan: 77 years old male last admitted to to the [facility] on 05/24/17 and discharged 06/24/17 with dx of volume overload. He comes to the ED on CPAP with Sudden worsening of SOB with chest tightness and palpitation. In the ED he was in severe SOB not being able to speak full sentences. #. Chest pain r/o ACS - Consult Dr Yates [employer] Pollution Inspector - Serial Troponin - Serial EKG - ASA/Brilinta/metoprolol #. Acute CHF with Volume overload - No Lasix IV as pte is anuric - Dialysis to remove fluid - Metoprolol #. ESRD on HD - consult Dr Ortiz nephrology - Dialysis #. Anemia of Chronic Disease - follow Hb #. DM II with hyperglycemia - Diabetic diet - Regular Insulin with sliding scale according to accucheck #. Leukocytosis reactive - Follow WBC #. CAD s/p Stents placement ASA/ Brilinta/ Metoprolol/ Pravastatin #. HTN - Metoprolol #. DVT prophylaxis: patient on Sub Q Heparin #. Code Status Full - Date & Time Date: 07/05/17 Time: 02:32
[2017-07-05] MEDS ORDERED: Ergocalciferol 50,000 Intl Units Cap PO SCH (03:00)
--- NOTE | 2017-07-05 08:08 | RAD ---
HISTORY: Shortness of breath. COMPARISON: 05/24/2017. FINDINGS: LUNGS: Pulmonary vascular congestion similar to that identified on the previous study primarily appearing as multifocal infiltrates, pulmonary vascular plethora. PLEURA: No significant pleural effusion identified, no pneumothorax apparent. CARDIOVASCULAR: Cardiomegaly. OSSEOUS STRUCTURES: No significant abnormalities. VISUALIZED UPPER ABDOMEN: Normal. OTHER FINDINGS: None. IMPRESSION: Multifocal infiltrates in the presence of cardiomegaly and with comparison studies likely cardiogenic pulmonary edema. No preliminary report provided by emergency department personnel.
--- NOTE | 2017-07-05 08:14 | CP.PCM.CON ---
History of Present Illness - History of Present Illness History of Present Illness: Patietn seen examined. full consult to follow. 77 year old male with ischemic cardiomyopathy s/p multivessel PCI presents with dyspnea. Patinet appears volume overloaded. no current ischemia. Plan medical therapy and diuresis. Past Patient History - Infectious Disease Hx of Infectious Diseases: None - Tetanus Immunizations Tetanus Immunization: Unknown - Past Medical History & Family History Past Medical History?: Yes - Past Social History Alcohol: None Drugs: Denies - CARDIAC Hx Congestive Heart Failure: Yes Hx Hypercholesterolemia: Yes Hx Hypertension: Yes - PULMONARY Hx Pneumonia: Yes - NEUROLOGICAL Hx Neurological Disorder: No - HEENT Hx HEENT Problems: No - RENAL Hx Chronic Kidney Disease: Yes Hx Kidney Stones: No - ENDOCRINE/METABOLIC Hx Endocrine Disorders: Yes Hx Diabetes Mellitus Type 2: Yes - HEMATOLOGICAL/ONCOLOGICAL Hx Human Immunodeficiency Virus (HIV): No - INTEGUMENTARY Hx Cellulitis: Yes - MUSCULOSKELETAL/RHEUMATOLOGICAL Hx Falls: No - GASTROINTESTINAL Hx Gastrointestinal Disorders: Yes Hx Colitis: Yes Hx Gastroesophageal Reflux: Yes Other/Comment: Hx Salmonella Gastroenteritis - GENITOURINARY/GYNECOLOGICAL Hx Genitourinary Disorders: No - PSYCHIATRIC Hx Substance Use: No - SURGICAL HISTORY Hx Coronary Stent: Yes (x4) - ANESTHESIA Hx Anesthesia: Yes Hx Anesthesia Reactions: No Hx Malignant Hyperthermia: No Meds Allergies/Adverse Reactions: Allergies Allergy/AdvReac Type Severity Reaction Status Date / Time Sulfa (Sulfonamide Allergy PAIN Verified 07/05/17 00:35 Antibiotics) milk AdvReac NAUSEA Verified 07/05/17 00:35 - Medications Medications: Current Medications Aspirin (Ecotrin) 81 mg PO DAILY [facility] Calcium Acetate (Phoslo) 2,001 mg PO TIDPC [facility] Cinacalcet (Sensipar) 30 mg PO DAILY [facility] Ergocalciferol (Drisdol 50,000 Intl Units Cap) 1 cap PO QWK [facility] Heparin Sodium (Porcine) (Heparin) 5,000 units SC Q8 [facility] PRN Reason: Protocol Home Med (Mometasone 0.1% [Elocon Cream]) 1 appl TD DAILY [facility] Insulin Detemir (Levemir) 10 units SC HS [facility] Insulin Human Lispro (Humalog) 4 units SC TID [facility] Metoprolol Succinate (Toprol Xl) 25 mg PO DAILY [facility] Pantoprazole Sodium (Protonix Ec Tab) 40 mg PO DAILY [facility] Pravastatin Sodium (Pravachol) 40 mg PO HS [facility] Ticagrelor (Brilinta) 90 mg PO BID [facility] Results - Vital Signs Recent Vital Signs: Last Vital Signs Temp 97.9 F 07/05/17 05:20 Pulse 111 H 07/05/17 05:45 Resp 20 07/05/17 05:20 BP 103/58 L 07/05/17 05:20 Pulse Ox 100 07/05/17 05:45 - Labs Result Diagrams: 07/05/17 00:41 07/05/17 00:41 Labs: Laboratory Results - last 24 hr 07/05/17 07/05/17 07/05/17 00:26 00:33 00:41 WBC RBC Hgb Hct MCV MCH MCHC RDW Plt Count MPV Neut % (Auto) Lymph % (Auto) [place] % (Auto) Eos % (Auto) Baso % (Auto) Neut # Lymph # [place] # Eos # Baso # PT INR APTT pCO2 pO2 30 HCO3 ABG pH ABG Total CO2 ABG O2 Saturation ABG Base Excess Manuel Test ABG Potassium VBG pH 7.31 L VBG pCO2 56 VBG HCO3 24.3 VBG Total CO2 29.9 H VBG O2 Sat (Calc) 55.5 VBG Base Excess 0.8 VBG Potassium 6.4 H* A-a O2 Difference Sodium 137.0 141 Chloride 99.0 97 L Glucose 208 H Lactate 3.5 H Mechanical Rate FiO2 100.0 Inspiratory BiPAP Expiratory BiPAP Crit Value Called To pawan Arredondo md Crit Value Called By 302 Crit Value Read Back Y Blood Gas Notified Time 40 Potassium 4.7 Carbon Dioxide 25 Anion Gap 24 H BUN 65 H Creatinine 10.4 H* Est GFR ( Amer) 6 Est GFR (Non-Af Amer) 5 POC Glucose (mg/dL) 235 H Random Glucose 195 H Calcium 9.9 Phosphorus 3.7 Magnesium 1.9 Total Bilirubin 0.7 AST 32 ALT 34 Alkaline Phosphatase 86 Total Creatine Kinase 54 L Troponin I 0.0540 NT-Pro-B Natriuret Pep 98620 H Total Protein 7.7 Albumin 4.4 Globulin 3.3 Albumin/Globulin Ratio 1.3 Lipase 178 Arterial Blood Potassium Venous Blood Potassium 6.4 H* 07/05/17 07/05/17 07/05/17 00:41 00:41 00:47 WBC 12.4 H RBC 3.94 L Hgb 11.3 L Hct 35.6 MCV 90.5 MCH 28.6 MCHC 31.6 L RDW 15.4 H Plt Count 284 D MPV 8.7 Neut % (Auto) 68.6 Lymph % (Auto) 23.3 [place] % (Auto) 4.9 Eos % (Auto) 2.5 Baso % (Auto) 0.7 Neut # 8.5 H Lymph # 2.9 [place] # 0.6 Eos # 0.3 Baso # 0.1 PT 11.6 INR 1.1 APTT 27.3 pCO2 44 pO2 164 H HCO3 25.9 ABG pH 7.39 ABG Total CO2 28.0 ABG O2 Saturation 100.2 H ABG Base Excess 1.2 Manuel Test Yes ABG Potassium 4.1 VBG pH VBG pCO2 VBG HCO3 VBG Total CO2 VBG O2 Sat (Calc) VBG Base Excess VBG Potassium A-a O2 Difference 494.0 Sodium 137.0 Chloride 100.0 Glucose 223 H Lactate 1.8 Mechanical Rate 20 FiO2 100.0 Inspiratory BiPAP 16 Expiratory BiPAP 5 Crit Value Called To Crit Value Called By Crit Value Read Back Blood Gas Notified Time Potassium Carbon Dioxide Anion Gap BUN Creatinine Est GFR ( Amer) Est GFR (Non-Af Amer) POC Glucose (mg/dL) Random Glucose Calcium Phosphorus Magnesium Total Bilirubin AST ALT Alkaline Phosphatase Total Creatine Kinase Troponin I NT-Pro-B Natriuret Pep Total Protein Albumin Globulin Albumin/Globulin Ratio Lipase Arterial Blood Potassium 4.1 Venous Blood Potassium 07/05/17 05:30 WBC RBC Hgb Hct MCV MCH MCHC RDW Plt Count MPV Neut % (Auto) Lymph % (Auto) [place] % (Auto) Eos % (Auto) Baso % (Auto) Neut # Lymph # [place] # Eos # Baso # PT INR APTT pCO2 pO2 HCO3 ABG pH ABG Total CO2 ABG O2 Saturation ABG Base Excess Manuel Test ABG Potassium VBG pH VBG pCO2 VBG HCO3 VBG Total CO2 VBG O2 Sat (Calc) VBG Base Excess VBG Potassium A-a O2 Difference Sodium Chloride Glucose Lactate Mechanical Rate FiO2 Inspiratory BiPAP Expiratory BiPAP Crit Value Called To Crit Value Called By Crit Value Read Back Blood Gas Notified Time Potassium Carbon Dioxide Anion Gap BUN Creatinine Est GFR ( Amer) Est GFR (Non-Af Amer) POC Glucose (mg/dL) Random Glucose Calcium Phosphorus Magnesium Total Bilirubin AST ALT Alkaline Phosphatase Total Creatine Kinase Troponin I 0.0990 NT-Pro-B Natriuret Pep Total Protein Albumin Globulin Albumin/Globulin Ratio Lipase Arterial Blood Potassium Venous Blood Potassium
--- NOTE | 2017-07-05 08:14 | CP.PCM.CON ---
Past Patient History - Infectious Disease Hx of Infectious Diseases: None - Tetanus Immunizations Tetanus Immunization: Unknown - Past Medical History & Family History Past Medical History?: Yes - Past Social History Alcohol: None Drugs: Denies - CARDIAC Hx Congestive Heart Failure: Yes Hx Hypercholesterolemia: Yes Hx Hypertension: Yes - PULMONARY Hx Pneumonia: Yes - NEUROLOGICAL Hx Neurological Disorder: No - HEENT Hx HEENT Problems: No - RENAL Hx Chronic Kidney Disease: Yes Hx Kidney Stones: No - ENDOCRINE/METABOLIC Hx Endocrine Disorders: Yes Hx Diabetes Mellitus Type 2: Yes - HEMATOLOGICAL/ONCOLOGICAL Hx Human Immunodeficiency Virus (HIV): No - INTEGUMENTARY Hx Cellulitis: Yes - MUSCULOSKELETAL/RHEUMATOLOGICAL Hx Falls: No - GASTROINTESTINAL Hx Gastrointestinal Disorders: Yes Hx Colitis: Yes Hx Gastroesophageal Reflux: Yes Other/Comment: Hx Salmonella Gastroenteritis - GENITOURINARY/GYNECOLOGICAL Hx Genitourinary Disorders: No - PSYCHIATRIC Hx Substance Use: No - SURGICAL HISTORY Hx Coronary Stent: Yes (x4) - ANESTHESIA Hx Anesthesia: Yes Hx Anesthesia Reactions: No Hx Malignant Hyperthermia: No Meds Allergies/Adverse Reactions: Allergies Allergy/AdvReac Type Severity Reaction Status Date / Time Sulfa (Sulfonamide Allergy PAIN Verified 07/05/17 00:35 Antibiotics) milk AdvReac NAUSEA Verified 07/05/17 00:35 - Medications Medications: Current Medications Aspirin (Ecotrin) 81 mg PO DAILY [facility] Calcium Acetate (Phoslo) 2,001 mg PO TIDPC RIA Cinacalcet (Sensipar) 30 mg PO DAILY [facility] Ergocalciferol (Drisdol 50,000 Intl Units Cap) 1 cap PO QWK [facility] Heparin Sodium (Porcine) (Heparin) 5,000 units SC Q8 [facility] PRN Reason: Protocol Home Med (Mometasone 0.1% [Elocon Cream]) 1 appl TD DAILY [facility] Insulin Detemir (Levemir) 10 units SC HS [facility] Insulin Human Lispro (Humalog) 4 units SC TID [facility] Metoprolol Succinate (Toprol Xl) 25 mg PO DAILY [facility] Pantoprazole Sodium (Protonix Ec Tab) 40 mg PO DAILY [facility] Pravastatin Sodium (Pravachol) 40 mg PO HS [facility] Ticagrelor (Brilinta) 90 mg PO BID [facility] Results - Vital Signs Recent Vital Signs: Last Vital Signs Temp 97.9 F 07/05/17 05:20 Pulse 111 H 07/05/17 05:45 Resp 20 07/05/17 05:20 BP 103/58 L 07/05/17 05:20 Pulse Ox 100 07/05/17 05:45 - Labs Result Diagrams: 07/05/17 00:41 07/05/17 00:41 Labs: Laboratory Results - last 24 hr 07/05/17 07/05/17 07/05/17 00:26 00:33 00:41 WBC RBC Hgb Hct MCV MCH MCHC RDW Plt Count MPV Neut % (Auto) Lymph % (Auto) [place] % (Auto) Eos % (Auto) Baso % (Auto) Neut # Lymph # [place] # Eos # Baso # PT INR APTT pCO2 pO2 30 HCO3 ABG pH ABG Total CO2 ABG O2 Saturation ABG Base Excess Manuel Test ABG Potassium VBG pH 7.31 L VBG pCO2 56 VBG HCO3 24.3 VBG Total CO2 29.9 H VBG O2 Sat (Calc) 55.5 VBG Base Excess 0.8 VBG Potassium 6.4 H* A-a O2 Difference Sodium 137.0 141 Chloride 99.0 97 L Glucose 208 H Lactate 3.5 H Mechanical Rate FiO2 100.0 Inspiratory BiPAP Expiratory BiPAP Crit Value Called To pawan Arredondo md Crit Value Called By 302 Crit Value Read Back Y Blood Gas Notified Time 40 Potassium 4.7 Carbon Dioxide 25 Anion Gap 24 H BUN 65 H Creatinine 10.4 H* Est GFR ( Amer) 6 Est GFR (Non-Af Amer) 5 POC Glucose (mg/dL) 235 H Random Glucose 195 H Calcium 9.9 Phosphorus 3.7 Magnesium 1.9 Total Bilirubin 0.7 AST 32 ALT 34 Alkaline Phosphatase 86 Total Creatine Kinase 54 L Troponin I 0.0540 NT-Pro-B Natriuret Pep 82029 H Total Protein 7.7 Albumin 4.4 Globulin 3.3 Albumin/Globulin Ratio 1.3 Lipase 178 Arterial Blood Potassium Venous Blood Potassium 6.4 H* 07/05/17 07/05/17 07/05/17 00:41 00:41 00:47 WBC 12.4 H RBC 3.94 L Hgb 11.3 L Hct 35.6 MCV 90.5 MCH 28.6 MCHC 31.6 L RDW 15.4 H Plt Count 284 D MPV 8.7 Neut % (Auto) 68.6 Lymph % (Auto) 23.3 [place] % (Auto) 4.9 Eos % (Auto) 2.5 Baso % (Auto) 0.7 Neut # 8.5 H Lymph # 2.9 [place] # 0.6 Eos # 0.3 Baso # 0.1 PT 11.6 INR 1.1 APTT 27.3 pCO2 44 pO2 164 H HCO3 25.9 ABG pH 7.39 ABG Total CO2 28.0 ABG O2 Saturation 100.2 H ABG Base Excess 1.2 Manuel Test Yes ABG Potassium 4.1 VBG pH VBG pCO2 VBG HCO3 VBG Total CO2 VBG O2 Sat (Calc) VBG Base Excess VBG Potassium A-a O2 Difference 494.0 Sodium 137.0 Chloride 100.0 Glucose 223 H Lactate 1.8 Mechanical Rate 20 FiO2 100.0 Inspiratory BiPAP 16 Expiratory BiPAP 5 Crit Value Called To Crit Value Called By Crit Value Read Back Blood Gas Notified Time Potassium Carbon Dioxide Anion Gap BUN Creatinine Est GFR ( Amer) Est GFR (Non-Af Amer) POC Glucose (mg/dL) Random Glucose Calcium Phosphorus Magnesium Total Bilirubin AST ALT Alkaline Phosphatase Total Creatine Kinase Troponin I NT-Pro-B Natriuret Pep Total Protein Albumin Globulin Albumin/Globulin Ratio Lipase Arterial Blood Potassium 4.1 Venous Blood Potassium 07/05/17 05:30 WBC RBC Hgb Hct MCV MCH MCHC RDW Plt Count MPV Neut % (Auto) Lymph % (Auto) [place] % (Auto) Eos % (Auto) Baso % (Auto) Neut # Lymph # [place] # Eos # Baso # PT INR APTT pCO2 pO2 HCO3 ABG pH ABG Total CO2 ABG O2 Saturation ABG Base Excess Manuel Test ABG Potassium VBG pH VBG pCO2 VBG HCO3 VBG Total CO2 VBG O2 Sat (Calc) VBG Base Excess VBG Potassium A-a O2 Difference Sodium Chloride Glucose Lactate Mechanical Rate FiO2 Inspiratory BiPAP Expiratory BiPAP Crit Value Called To Crit Value Called By Crit Value Read Back Blood Gas Notified Time Potassium Carbon Dioxide Anion Gap BUN Creatinine Est GFR ( Amer) Est GFR (Non-Af Amer) POC Glucose (mg/dL) Random Glucose Calcium Phosphorus Magnesium Total Bilirubin AST ALT Alkaline Phosphatase Total Creatine Kinase Troponin I 0.0990 NT-Pro-B Natriuret Pep Total Protein Albumin Globulin Albumin/Globulin Ratio Lipase Arterial Blood Potassium Venous Blood Potassium
[2017-07-05] MEDS: Metoprolol Succinate 25 mg XL Tab PO SCH (08:35)
[2017-07-05] MEDS: Pantoprazole 40 mg EC Tab PO SCH (08:42)
[2017-07-05] MEDS: Insulin Lispro (humaLOG) 100 Units/ml Inj SC SCH ×3 (08:44→17:46)
[2017-07-05] MEDS ORDERED: MOMETASONE 0.1% TD SCH (09:00)
[2017-07-05] MEDS ORDERED: APPL TD SCH (09:00)
[2017-07-05] MEDS ORDERED: Metoprolol Succinate 25 mg XL Tab PO SCH (09:00)
--- NOTE | 2017-07-05 10:03 | CP.PCM.CON ---
History of Present Illness - History of Present Illness History of Present Illness: Patient is a 77 years of age admitted with shortness of breath difficulty breathing was called to see him because he is chronic kidney disease patient on dialysis MWF And he appeared to have shortness of breath and admitted with volume overloaded and he has some atypical chest pain Patient has significant past medical history with multiple admission and the recent past in the past 6 month or so PMH; CAD (CA), CHF, Diabetes, HTN, HLD, End Stage Renal Disease on Hemodialysis M W F; Pneumonia. PSH; Right A-V fistula for dialysis; Coronary stent X4 placement FH: HTN SH: Heavy smoker; No alcohol; No illegal drug use; live with the family Allergies: Sulfa and Milk Review of Systems - Constitutional Constitutional: As Per HPI - Cardiovascular Cardiovascular: Chest Pain, Dyspnea. absent: Leg Edema - Respiratory Respiratory: Cough, Dyspnea - Gastrointestinal Gastrointestinal: absent: Abdominal Pain, Belching, Cramping, Nausea - Reproductive: Male Reproductive:Male: As Per HPI - Musculoskeletal Musculoskeletal: As Per HPI, Muscle Weakness - Neurological Neurological: As Per HPI - Psychiatric Psychiatric: absent: Anxiety - Hematologic/Lymphatic Hematologic: absent: Easy Bleeding Past Patient History - Infectious Disease Hx of Infectious Diseases: None - Tetanus Immunizations Tetanus Immunization: Unknown - Past Medical History & Family History Past Medical History?: Yes - Past Social History Alcohol: None Drugs: Denies - CARDIAC Hx Congestive Heart Failure: Yes Hx Hypercholesterolemia: Yes Hx Hypertension: Yes - PULMONARY Hx Pneumonia: Yes - NEUROLOGICAL Hx Neurological Disorder: No - HEENT Hx HEENT Problems: No - RENAL Hx Chronic Kidney Disease: Yes Hx Kidney Stones: No - ENDOCRINE/METABOLIC Hx Endocrine Disorders: Yes Hx Diabetes Mellitus Type 2: Yes - HEMATOLOGICAL/ONCOLOGICAL Hx Human Immunodeficiency Virus (HIV): No - INTEGUMENTARY Hx Cellulitis: Yes - MUSCULOSKELETAL/RHEUMATOLOGICAL Hx Falls: No - GASTROINTESTINAL Hx Gastrointestinal Disorders: Yes Hx Colitis: Yes Hx Gastroesophageal Reflux: Yes Other/Comment: Hx Salmonella Gastroenteritis - GENITOURINARY/GYNECOLOGICAL Hx Genitourinary Disorders: No - PSYCHIATRIC Hx Substance Use: No - SURGICAL HISTORY Hx Coronary Stent: Yes (x4) - ANESTHESIA Hx Anesthesia: Yes Hx Anesthesia Reactions: No Hx Malignant Hyperthermia: No Meds Allergies/Adverse Reactions: Allergies Allergy/AdvReac Type Severity Reaction Status Date / Time Sulfa (Sulfonamide Allergy PAIN Verified 07/05/17 00:35 Antibiotics) milk AdvReac NAUSEA Verified 07/05/17 00:35 - Medications Medications: Current Medications Aspirin (Ecotrin) 81 mg PO DAILY [facility] Last Admin: 07/05/17 08:41 Dose: 81 mg Calcium Acetate (Phoslo) 2,001 mg PO TIDPC [facility] Cinacalcet (Sensipar) 30 mg PO DAILY [facility] Ergocalciferol (Drisdol 50,000 Intl Units Cap) 1 cap PO QWK [facility] Heparin Sodium (Porcine) (Heparin) 5,000 units SC Q8 [facility] PRN Reason: Protocol Last Admin: 07/05/17 08:41 Dose: 5,000 units Home Med (Mometasone 0.1% [Elocon Cream]) 1 appl TD DAILY [facility] Insulin Detemir (Levemir) 10 units SC HS [facility] Insulin Human Lispro (Humalog) 4 units SC TID [facility] Last Admin: 07/05/17 08:44 Dose: 4 u Metoprolol Succinate (Toprol Xl) 25 mg PO DAILY [facility] Last Admin: 07/05/17 08:35 Dose: Not Given Pantoprazole Sodium (Protonix Ec Tab) 40 mg PO DAILY [facility] Last Admin: 07/05/17 08:42 Dose: 40 mg Pravastatin Sodium (Pravachol) 40 mg PO HS [facility] Ticagrelor (Brilinta) 90 mg PO BID [facility] Last Admin: 07/05/17 08:32 Dose: 90 mg Physical Exam - Constitutional Appears: No Acute Distress - ENT Exam ENT Exam: Mucous Membranes Moist - Respiratory Exam Respiratory Exam: Rhonchi, NORMAL BREATHING PATTERN. absent: Chest Wall Tenderness - Cardiovascular Exam Cardiovascular Exam: absent: JVD, Rubs - GI/Abdominal Exam GI & Abdominal Exam: Normal Bowel Sounds - Extremities Exam Extremities exam: Negative for: calf tenderness - Back Exam Back exam: absent: CVA tenderness (L), CVA tenderness (R) - Neurological Exam Neurological exam: Alert Results - Vital Signs Recent Vital Signs: Last Vital Signs Temp 97.7 F 07/05/17 08:13 Pulse 78 07/05/17 08:35 Resp 18 07/05/17 08:13 BP 103/63 07/05/17 08:35 Pulse Ox 100 07/05/17 08:13 - Labs Result Diagrams: 07/05/17 00:41 07/05/17 00:41 Labs: Laboratory Results - last 24 hr 09/25/17 09/25/17 09/25/17 00:26 00:33 00:41 WBC RBC Hgb Hct MCV MCH MCHC RDW Plt Count MPV Neut % (Auto) Lymph % (Auto) [place] % (Auto) Eos % (Auto) Baso % (Auto) Neut # Lymph # [place] # Eos # Baso # PT INR APTT pCO2 pO2 30 HCO3 ABG pH ABG Total CO2 ABG O2 Saturation ABG Base Excess Manuel Test ABG Potassium VBG pH 7.31 L VBG pCO2 56 VBG HCO3 24.3 VBG Total CO2 29.9 H VBG O2 Sat (Calc) 55.5 VBG Base Excess 0.8 VBG Potassium 6.4 H* A-a O2 Difference Sodium 137.0 141 Chloride 99.0 97 L Glucose 208 H Lactate 3.5 H Mechanical Rate FiO2 100.0 Inspiratory BiPAP Expiratory BiPAP Crit Value Called To pawan Arredondo md Crit Value Called By 302 Crit Value Read Back Y Blood Gas Notified Time 40 Potassium 4.7 Carbon Dioxide 25 Anion Gap 24 H BUN 65 H Creatinine 10.4 H* Est GFR ( Amer) 6 Est GFR (Non-Af Amer) 5 POC Glucose (mg/dL) 235 H Random Glucose 195 H Calcium 9.9 Phosphorus 3.7 Magnesium 1.9 Total Bilirubin 0.7 AST 32 ALT 34 Alkaline Phosphatase 86 Total Creatine Kinase 54 L Troponin I 0.0540 NT-Pro-B Natriuret Pep 94496 H Total Protein 7.7 Albumin 4.4 Globulin 3.3 Albumin/Globulin Ratio 1.3 Lipase 178 Arterial Blood Potassium Venous Blood Potassium 6.4 H* 07/05/17 07/05/17 07/05/17 00:41 00:41 00:47 WBC 12.4 H RBC 3.94 L Hgb 11.3 L Hct 35.6 MCV 90.5 MCH 28.6 MCHC 31.6 L RDW 15.4 H Plt Count 284 D MPV 8.7 Neut % (Auto) 68.6 Lymph % (Auto) 23.3 [place] % (Auto) 4.9 Eos % (Auto) 2.5 Baso % (Auto) 0.7 Neut # 8.5 H Lymph # 2.9 [place] # 0.6 Eos # 0.3 Baso # 0.1 PT 11.6 INR 1.1 APTT 27.3 pCO2 44 pO2 164 H HCO3 25.9 ABG pH 7.39 ABG Total CO2 28.0 ABG O2 Saturation 100.2 H ABG Base Excess 1.2 Manuel Test Yes ABG Potassium 4.1 VBG pH VBG pCO2 VBG HCO3 VBG Total CO2 VBG O2 Sat (Calc) VBG Base Excess VBG Potassium A-a O2 Difference 494.0 Sodium 137.0 Chloride 100.0 Glucose 223 H Lactate 1.8 Mechanical Rate 20 FiO2 100.0 Inspiratory BiPAP 16 Expiratory BiPAP 5 Crit Value Called To Crit Value Called By Crit Value Read Back Blood Gas Notified Time Potassium Carbon Dioxide Anion Gap BUN Creatinine Est GFR ( Amer) Est GFR (Non-Af Amer) POC Glucose (mg/dL) Random Glucose Calcium Phosphorus Magnesium Total Bilirubin AST ALT Alkaline Phosphatase Total Creatine Kinase Troponin I NT-Pro-B Natriuret Pep Total Protein Albumin Globulin Albumin/Globulin Ratio Lipase Arterial Blood Potassium 4.1 Venous Blood Potassium 07/05/17 05:30 WBC RBC Hgb Hct MCV MCH MCHC RDW Plt Count MPV Neut % (Auto) Lymph % (Auto) [place] % (Auto) Eos % (Auto) Baso % (Auto) Neut # Lymph # [place] # Eos # Baso # PT INR APTT pCO2 pO2 HCO3 ABG pH ABG Total CO2 ABG O2 Saturation ABG Base Excess Manuel Test ABG Potassium VBG pH VBG pCO2 VBG HCO3 VBG Total CO2 VBG O2 Sat (Calc) VBG Base Excess VBG Potassium A-a O2 Difference Sodium Chloride Glucose Lactate Mechanical Rate FiO2 Inspiratory BiPAP Expiratory BiPAP Crit Value Called To Crit Value Called By Crit Value Read Back Blood Gas Notified Time Potassium Carbon Dioxide Anion Gap BUN Creatinine Est GFR ( Amer) Est GFR (Non-Af Amer) POC Glucose (mg/dL) Random Glucose Calcium Phosphorus Magnesium Total Bilirubin AST ALT Alkaline Phosphatase Total Creatine Kinase Troponin I 0.0990 NT-Pro-B Natriuret Pep Total Protein Albumin Globulin Albumin/Globulin Ratio Lipase Arterial Blood Potassium Venous Blood Potassium Assessment & Plan (1) CHF (congestive heart failure) Status: Acute (2) CKD (chronic kidney disease) stage V requiring chronic dialysis Assessment and Plan: Patient with end stage renal disease on maintenance hemodialysis Wednesday admitted with chest pain shortness of breath difficulty breathing and volume overloaded Hemodialysis orders Ultrafiltration about 3000 mL as tolerated Sodium bath 138 Bicarbonate 34 Patient has been seen by cardiology and also as per primary team To proceed with hemodialysis as soon as possible. Status: Acute
--- NOTE | 2017-07-05 17:34 | CARD ---
APPROVED REPORT EKG Measurement Heart [id number] <Conclusion> Sinus tachycardia Possible Left atrial enlargement Incomplete left bundle branch block T wave abnormality, consider lateral ischemia Abnormal ECG
[2017-07-05] MEDS ORDERED: Pravastatin Sodium 40 MG TAB PO SCH (22:00)
[2017-07-05] MEDS ORDERED: Insulin Detemir 100 Units/ml Inj SC SCH (22:00)
[2017-07-06 06:23] LABS: BASO % 0.8 % (0.0-2.0); EOS # 0.2 K/uL (0.0-0.7); EOS % 2.6 % (0.0-4.0); HEMATOCRIT 29.9 % (35.0-51.0); LYMPH # 1.2 K/uL (1.0-4.3); LYMPH % 20.3 % (20.0-40.0); MEAN CELL VOLUME 88.9 fl (80.0-94.0); MEAN CORPUSCULAR HEMOGLOBIN 28.8 pg (27.0-31.0); MEAN CORPUSCULAR HGB CONC 32.4 g/dL (33.0-37.0); MEAN PLATELET VOLUME 8.2 fl (7.2-11.7); MONO # 0.4 K/uL (0.0-0.8); MONO % 6.8 % (0.0-10.0); NEUT # 4.1 K/uL (1.8-7.0); NEUT % 69.5 % (50.0-75.0); NRBC % 0.2 % (0.0-0.0); RED CELL DISTRIBUTION WIDTH 14.9 % (11.5-14.5); WHITE BLOOD COUNT 5.9 K/uL (4.8-10.8)
[2017-07-06 06:31] LABS: CALCIUM 9.5 mg/dL (8.4-10.2); POTASSIUM 4.5 MMOL/L (3.6-5.0)
[2017-07-06 08:44] VITALS: RESP 20
[2017-07-06] MEDS: Insulin Lispro (humaLOG) 100 Units/ml Inj SC SCH ×3 (08:47→17:12)
[2017-07-06] MEDS: Pantoprazole 40 mg EC Tab PO SCH (08:49)
[2017-07-06] MEDS: Metoprolol Succinate 25 mg XL Tab PO SCH (08:50)
--- NOTE | 2017-07-06 12:46 | CP.PCM.PN ---
Subjective - Date & Time of Evaluation Date of Evaluation: 07/06/17 Time of Evaluation: 12:44 - Subjective Subjective: Patient appeared to be comfortable less shortness of breath Patient completed hemodialysis yesterday with ultrafiltration Vital signs stable Objective - Vital Signs/Intake and Output Vital Signs (last 24 hours): Temp Pulse Resp BP Pulse Ox 97.8 F 80 20 91/49 L 99 07/06/17 08:44 07/06/17 11:30 07/06/17 08:44 07/06/17 08:50 07/06/17 08:44 - Medications Medications: Current Medications Aspirin (Ecotrin) 81 mg PO DAILY [facility] Last Admin: 07/06/17 08:47 Dose: 81 mg Calcium Acetate (Phoslo) 2,001 mg PO TIDPC [facility] Last Admin: 07/06/17 08:47 Dose: 2,001 mg Cinacalcet (Sensipar) 30 mg PO DAILY [facility] Last Admin: 07/06/17 08:49 Dose: 30 mg Ergocalciferol (Drisdol 50,000 Intl Units Cap) 1 cap PO QWK [facility] Heparin Sodium (Porcine) (Heparin) 5,000 units SC Q8 [facility] PRN Reason: Protocol Last Admin: 07/06/17 08:47 Dose: 5,000 units Home Med (Mometasone 0.1% [Elocon Cream]) 1 appl TD DAILY [facility] Insulin Detemir (Levemir) 10 units SC HS [facility] Last Admin: 07/05/17 23:40 Dose: 10 unit Insulin Human Lispro (Humalog) 4 units SC TID [facility] Last Admin: 07/06/17 08:47 Dose: 4 u Metoprolol Succinate (Toprol Xl) 25 mg PO DAILY [facility] Last Admin: 07/06/17 08:50 Dose: Not Given Pantoprazole Sodium (Protonix Ec Tab) 40 mg PO DAILY [facility] Last Admin: 07/06/17 08:49 Dose: 40 mg Pravastatin Sodium (Pravachol) 40 mg PO HS [facility] Last Admin: 07/05/17 23:48 Dose: 40 mg Ticagrelor (Brilinta) 90 mg PO BID [facility] Last Admin: 07/06/17 08:46 Dose: 90 mg - Labs Labs: 07/06/17 06:00 07/06/17 06:00 PT 11.6 Seconds (9.8-13.1) 07/05/17 00:41 INR 1.1 (0.9-1.2) 07/05/17 00:41 APTT 27.3 Seconds (25.6-37.1) 07/05/17 00:41 - Constitutional Appears: No Acute Distress - ENT Exam ENT Exam: Mucous Membranes Moist - Respiratory Exam Respiratory Exam: absent: Chest Wall Tenderness - Cardiovascular Exam Cardiovascular Exam: absent: JVD, Rubs - GI/Abdominal Exam GI & Abdominal Exam: Normal Bowel Sounds - Extremities Exam Extremities Exam: absent: Calf Tenderness - Back Exam Back Exam: absent: CVA tenderness (L), CVA tenderness (R) - Neurological Exam Neurological Exam: Alert Assessment and Plan (1) CHF (congestive heart failure) Status: Acute (2) CKD (chronic kidney disease) stage V requiring chronic dialysis Assessment & Plan: Patient with end stage renal disease admitted with volume overloaded and history of coronary artery disease congestive heart failure required dialysis yesterday and he did very good As per cardiology follow-up Patient stable from renal standpoint of view Status: Acute
--- NOTE | 2017-07-06 13:29 | CP.PCM.PN ---
Subjective - Date & Time of Evaluation Date of Evaluation: 07/06/17 Time of Evaluation: 13:29 Objective - Vital Signs/Intake and Output Vital Signs (last 24 hours): Temp Pulse Resp BP Pulse Ox 98.3 F 76 20 101/66 100 07/06/17 12:47 07/06/17 12:47 07/06/17 12:47 07/06/17 12:47 07/06/17 12:47 Intake and Output: GEN: WDWN, alert, cooperative HEENT: NCAT, PERRL, EOMI Neck: supple, no lymphadenopathy CARDIO: +S1S2, RRR, NO M/R/G LUNG: CTAB, NO W/R/R ABD: soft, NT, ND, no masses, no HSM EXT: no edema, pedal pulses Neuro: AAOx3, Strength equal, bilateral UE/LE Psych: normal mood, normal affect - Medications Medications: Current Medications Aspirin (Ecotrin) 81 mg PO DAILY [facility] Last Admin: 07/06/17 08:47 Dose: 81 mg Calcium Acetate (Phoslo) 2,001 mg PO TIDPC [facility] Last Admin: 07/06/17 13:15 Dose: 2,001 mg Cinacalcet (Sensipar) 30 mg PO DAILY [facility] Last Admin: 07/06/17 08:49 Dose: 30 mg Ergocalciferol (Drisdol 50,000 Intl Units Cap) 1 cap PO QWK [facility] Heparin Sodium (Porcine) (Heparin) 5,000 units SC Q8 [facility] PRN Reason: Protocol Last Admin: 07/06/17 08:47 Dose: 5,000 units Home Med (Mometasone 0.1% [Elocon Cream]) 1 appl TD DAILY [facility] Insulin Detemir (Levemir) 10 units SC HS [facility] Last Admin: 07/05/17 23:40 Dose: 10 unit Insulin Human Lispro (Humalog) 4 units SC TID [facility] Last Admin: 07/06/17 13:14 Dose: 4 u Metoprolol Succinate (Toprol Xl) 25 mg PO DAILY [facility] Last Admin: 07/06/17 08:50 Dose: Not Given Pantoprazole Sodium (Protonix Ec Tab) 40 mg PO DAILY [facility] Last Admin: 07/06/17 08:49 Dose: 40 mg Pravastatin Sodium (Pravachol) 40 mg PO HS [facility] Last Admin: 07/05/17 23:48 Dose: 40 mg Ticagrelor (Brilinta) 90 mg PO BID [facility] Last Admin: 07/06/17 08:46 Dose: 90 mg - Labs Labs: 07/06/17 06:00 07/06/17 06:00 PT 11.6 Seconds (9.8-13.1) 07/05/17 00:41 INR 1.1 (0.9-1.2) 07/05/17 00:41 APTT 27.3 Seconds (25.6-37.1) 07/05/17 00:41 Assessment and Plan - Assessment and Plan (Free Text) Plan: 77 years old male last admitted to to the [facility] on 05/24/17 and discharged 06/24/17 with dx of volume overload. He comes to the ED on CPAP with Sudden worsening of SOB with chest tightness and palpitation. In the ED he was in severe SOB not being able to speak full sentences. #. 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 Acute CHF with Volume overload - No Lasix IV as pte is anuric - Dialysis to remove fluid - Metoprolol #. ESRD on HD - consult Dr Ortiz nephrology - Dialysis #. Anemia of Chronic Disease - follow Hb #. DM II with hyperglycemia - Diabetic diet - Regular Insulin with sliding scale according to accucheck #. Leukocytosis reactive - Follow WBC #. CAD s/p Stents placement ASA/ Brilinta/ Metoprolol/ Pravastatin #. HTN - Metoprolol #. DVT prophylaxis: patient on Sub Q Heparin #. Code Status Full
--- NOTE | 2017-07-06 14:09 | CP.PCM.DIS ---
Provider - Provider Date of Admission: 07/05/17 02:38 Attending physician: Andreas Penaloza Time Spent in preparation of Discharge (in minutes): 30 Hospital Course - Lab Results Lab Results: Micro Results 07/05/17 01:00 Blood Blood Culture - Preliminary NO GROWTH AFTER 24 HOURS 07/05/17 00:32 Blood Blood Culture - Preliminary NO GROWTH AFTER 24 HOURS Most Recent Lab Values WBC 5.9 K/uL (4.8-10.8) D 07/06/17 06:00 RBC 3.37 Mil/uL (4.40-5.90) L 07/06/17 06:00 Hgb 9.7 g/dL (12.0-18.0) L 07/06/17 06:00 Hct 29.9 % (35.0-51.0) L 07/06/17 06:00 MCV 88.9 fl (80.0-94.0) 07/06/17 06:00 MCH 28.8 pg (27.0-31.0) 07/06/17 06:00 MCHC 32.4 g/dL (33.0-37.0) L 07/06/17 06:00 RDW 14.9 % (11.5-14.5) H 07/06/17 06:00 Plt Count 143 K/uL (130-400) D 07/06/17 06:00 MPV 8.2 fl (7.2-11.7) 07/06/17 06:00 Neut % (Auto) 69.5 % (50.0-75.0) 07/06/17 06:00 Lymph % (Auto) 20.3 % (20.0-40.0) 07/06/17 06:00 [place] % (Auto) 6.8 % (0.0-10.0) 07/06/17 06:00 Eos % (Auto) 2.6 % (0.0-4.0) 07/06/17 06:00 Baso % (Auto) 0.8 % (0.0-2.0) 07/06/17 06:00 Neut # 4.1 K/uL (1.8-7.0) 07/06/17 06:00 Lymph # 1.2 K/uL (1.0-4.3) 07/06/17 06:00 [place] # 0.4 K/uL (0.0-0.8) 07/06/17 06:00 Eos # 0.2 K/uL (0.0-0.7) 07/06/17 06:00 Baso # 0.0 K/uL (0.0-0.2) 07/06/17 06:00 PT 11.6 Seconds (9.8-13.1) 07/05/17 00:41 INR 1.1 (0.9-1.2) 07/05/17 00:41 APTT 27.3 Seconds (25.6-37.1) 07/05/17 00:41 pCO2 44 mm/Hg (35-45) 07/05/17 00:47 pO2 164 mm/Hg (80-100) H 07/05/17 00:47 HCO3 25.9 mmol/L (21-28) 07/05/17 00:47 ABG pH 7.39 (7.35-7.45) 07/05/17 00:47 ABG Total CO2 28.0 mmol/L (22-28) 07/05/17 00:47 ABG O2 Saturation 100.2 % (95-98) H 07/05/17 00:47 ABG Base Excess 1.2 mmol/L (-2.0-3.0) 07/05/17 00:47 Manuel Test Yes 07/05/17 00:47 ABG Potassium 4.1 mmol/L (3.6-5.2) 07/05/17 00:47 VBG pH 7.31 (7.32-7.43) L 07/05/17 00:33 VBG pCO2 56 mmHg (40-60) 07/05/17 00:33 VBG HCO3 24.3 mmol/L 07/05/17 00:33 VBG Total CO2 29.9 mmol/L (22-28) H 07/05/17 00:33 VBG O2 Sat (Calc) 55.5 % (40-65) 07/05/17 00:33 VBG Base Excess 0.8 mmol/L (0.0-2.0) 07/05/17 00:33 VBG Potassium 6.4 mmol/L (3.6-5.2) H* 07/05/17 00:33 A-a O2 Difference 494.0 mm/Hg 07/05/17 00:47 Sodium 137.0 mmol/L (132-148) 07/05/17 00:47 Chloride 100.0 mmol/L (98-107) 07/05/17 00:47 Glucose 223 mg/dL (75-110) H 07/05/17 00:47 Lactate 1.8 mmol/L (0.7-2.1) 07/05/17 00:47 Mechanical Rate 20 07/05/17 00:47 FiO2 100.0 % 07/05/17 00:47 Inspiratory BiPAP 16 07/05/17 00:47 Expiratory BiPAP 5 07/05/17 00:47 Crit Value Called To pawan Arredondo md 07/05/17 00:33 Crit Value Called By Erica 07/05/17 00:33 Crit Value Read Back Y 07/05/17 00:33 Blood Gas Notified Time 40 07/05/17 00:33 Sodium 143 mmol/l (132-148) 07/06/17 06:00 Potassium 4.5 MMOL/L (3.6-5.0) 07/06/17 06:00 Chloride 96 mmol/L (98-107) L 07/06/17 06:00 Carbon Dioxide 33 mmol/L (22-30) H 07/06/17 06:00 Anion Gap 19 (10-20) 07/06/17 06:00 BUN 38 mg/dl (9-20) H 07/06/17 06:00 Creatinine 7.9 mg/dL (0.8-1.5) H* D 07/06/17 06:00 Est GFR ( Amer) 8 07/06/17 06:00 Est GFR (Non-Af Amer) 7 07/06/17 06:00 POC Glucose (mg/dL) 110 mg/dL (65-110) 07/06/17 11:57 Random Glucose 77 mg/dL (75-110) 07/06/17 06:00 Calcium 9.5 mg/dL (8.4-10.2) 07/06/17 06:00 Phosphorus 3.7 mg/dl (2.5-4.5) 07/05/17 00:41 Magnesium 1.9 MG/DL (1.6-2.3) 07/05/17 00:41 Total Bilirubin 0.7 mg/dl (0.2-1.3) 07/05/17 00:41 AST 32 U/L (17-59) 07/05/17 00:41 ALT 34 U/L (21-72) 07/05/17 00:41 Alkaline Phosphatase 86 U/L (38-126) 07/05/17 00:41 Total Creatine Kinase 54 U/L (55-170) L 07/05/17 00:41 Troponin I 0.1240 ng/mL (0.00-0.120) H* 07/05/17 12:00 NT-Pro-B Natriuret Pep 11200 pg/ml (0-900) H 07/05/17 00:41 Total Protein 7.7 G/DL (6.3-8.2) 07/05/17 00:41 Albumin 4.4 g/dL (3.5-5.0) 07/05/17 00:41 Globulin 3.3 gm/dL (2.2-3.9) 07/05/17 00:41 Albumin/Globulin Ratio 1.3 (1.0-2.1) 07/05/17 00:41 Lipase 178 U/L (23-300) 07/05/17 00:41 Arterial Blood Potassium 4.1 mmol/L (3.6-5.2) 07/05/17 00:47 Venous Blood Potassium 6.4 mmol/L (3.6-5.2) H* 07/05/17 00:33 - Hospital Course Hospital Course: 77 years old male last admitted to to the [facility] on 05/24/17 and discharged 06/24/17 with dx of volume overload. He comes to the ED on CPAP with Sudden worsening of SOB with chest tightness and palpitation. In the ED he was in severe SOB not being able to speak full sentences. Patient subsequently received HD, correcting fluid overload. Today patient vastly clinically improved, seen by cardiology, discussed with Dr. Yates. Pt did have elevated troponin, likely secondary to overload in setting of chronic renal failure. Pt also seen by Dr. Ortiz, appreciated and followed. VSS. stable to be discharged home. #. Chest pain r/o ACS - Consult Dr Yates Sign Designer - Serial Troponin - Serial EKG - ASA/Brilinta/metoprolol #. Acute CHF with Volume overload - No Lasix IV as pte is anuric - Dialysis to remove fluid - Metoprolol #. ESRD on HD - consult Dr Ortiz nephrology - Dialysis #. Anemia of Chronic Disease - follow Hb #. DM II with hyperglycemia - Diabetic diet - Regular Insulin with sliding scale according to accucheck #. Leukocytosis reactive - Follow WBC #. CAD s/p Stents placement ASA/ Brilinta/ Metoprolol/ Pravastatin #. HTN - Metoprolol #. DVT prophylaxis: patient on Sub Q Heparin #. Code Status Full Discharge Exam - Head Exam Head Exam: ATRAUMATIC, NORMOCEPHALIC - Eye Exam Eye Exam: EOMI, Normal appearance, PERRL Pupil Exam: NORMAL ACCOMODATION - ENT Exam ENT Exam: Mucous Membranes Moist, Normal Oropharynx - Neck Exam Neck exam: Full Rom, Normal Inspection - Respiratory Exam Respiratory Exam: Clear to PA & Lateral, NORMAL BREATHING PATTERN - Cardiovascular Exam Cardiovascular Exam: RRR, +S1, +S2 - GI/Abdominal Exam GI & Abdominal Exam: Normal Bowel Sounds, Soft. absent: Mass, Tenderness - Extremities Exam Extremities exam: normal capillary refill, pedal pulses present - Back Exam Back exam: absent: CVA tenderness (L), CVA tenderness (R) - Neurological Exam Neurological exam: Alert, Oriented x3 - Psychiatric Exam Psychiatric exam: Normal Affect, Normal Mood - Skin Skin Exam: Dry, Warm Discharge Plan - Discharge Medications Prescriptions: Aspirin [Ecotrin] 81 mg PO DAILY #30 tabec Calcium Acetate [Phoslo] 3 tab PO TIDPC #90 tab Cinacalcet [Sensipar] 30 mg PO DAILY #30 tab Ergocalciferol [Drisdol 50,000 Intl Units Cap] 1 cap PO QWK #30 cap Metoprolol Succinate [Toprol Xl] 1 tab PO DAILY #30 tab.er.24h Mometasone 0.1% [Elocon Cream] 1 appl TD DAILY #1 tube Pantoprazole [Protonix EC Tab] 40 mg PO DAILY #30 ect Pravastatin Sodium 40 mg PO HS #30 tablet Ticagrelor [Brilinta] 90 mg PO BID #60 tab - Follow Up Plan Condition: STABLE Disposition: HOME/ ROUTINE Additional Instructions: Follow up PCP and Cardiology and Nephrology in one week. Return to ER if condition worsens.
[2017-07-06 16:06] VITALS: BP 102/53; PULSE 75; TEMP 98; O2SAT 98
--- NOTE | 2017-07-07 11:19 | CARD ---
APPROVED REPORT EKG Measurement Heart [id number] <Conclusion> Sinus rhythm with sinus arrhythmia with occasional premature ventricular complexes T wave abnormality, consider lateral ischemia Abnormal ECG
--- NOTE | 2017-07-08 07:29 | PQF GENQUE ---
Dr. Valles, Etiology of the Chest Pain? if known OR: Unable to determine Cardiology consult: 77 year old male with ischemic cardiomyopathy s/p multivessel PCI presents with dyspnea. Patinet appears volume overloaded. no current ischemia. This form is a permanent part of the medical record Clarification of your documentation is requested to better reflect the severity of illness and intensity of treatment of your patient. Indicators present [] Specify: [] [] Specify: [] [] Specify: [] [] Specify: [] Location in the medical record that reflects the above clinical findings: [] Treatment Provided: [] PHYSICIAN'S RESPONSE ACUTE ON CHRONIC SYSTOLIC HEART FAILURE Based on your medical judgment of the clinical indicators outlined above please clarify the following: [] Practitioner response [] If unable to determine, please check the box, sign and date. Present On Admission (POA) Indicator: [] Present at the time of admission [] Not present at the time of admission [] Clinically Undetermined In responding to this query, please exercise your independent professional judgment. The fact that a question is asked does not imply that any particular answer is desired or expected. Thank you for your clarification on this documentation. If you have any questions please call. * Thank you, Nicky Holt RN ext. #[phone]: Megan PICHARDO
--- NOTE | 2017-07-08 07:32 | PQF GENQUE ---
Dr. Saima Valles, Please specify the type Acute Heart Failure in your progress notes: if known Combined systolic and diastolic Diastolic Systolic Other (please specify) Clinically unable to determine Unknown This form is a permanent part of the medical record Clarification of your documentation is requested to better reflect the severity of illness and intensity of treatment of your patient. Indicators present [] Specify: [] [] Specify: [] [] Specify: [] [] Specify: [] Location in the medical record that reflects the above clinical findings: [] Treatment Provided: [] PHYSICIAN'S RESPONSE SYSTOLIC Based on your medical judgment of the clinical indicators outlined above please clarify the following: [] Practitioner response [] If unable to determine, please check the box, sign and date. Present On Admission (POA) Indicator: [] Present at the time of admission [] Not present at the time of admission [] Clinically Undetermined In responding to this query, please exercise your independent professional judgment. The fact that a question is asked does not imply that any particular answer is desired or expected. Thank you for your clarification on this documentation. If you have any questions please call. * Thank you, Nicky Holt RN ext. #[phone]: Megan PICHARDO
--- NOTE | 2017-07-08 07:35 | PQF GENQUE ---
Dr. Saima Valles, Is there an associated dx. 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 EMS states patient's condition improved slightly secondary to CPAP Review Of Systems: ROS cannot be obtained secondary to pt's inabilty to answer questions. (Patient is unable to speak audibly secondary to SOB and CPAP.) PE: In Acute Distress; Tachycardia Respiratory: Positive for: Crackles (throughout lungs), Rales (throughout lungs) , Respiratory Distress, Other (labored breathing, tachypnic). Negative for: Normal Breath Sounds BiPAP This form is a permanent part of the medical record Clarification of your documentation is requested to better reflect the severity of illness and intensity of treatment of your patient. Indicators present [] Specify: [] [] Specify: [] [] Specify: [] [] Specify: [] Location in the medical record that reflects the above clinical findings: [] Treatment Provided: [] PHYSICIAN'S RESPONSE Based on your medical judgment of the clinical indicators outlined above please clarify the following: [] Practitioner response [x] If unable to determine, please check the box, sign and date. Present On Admission (POA) Indicator: [] Present at the time of admission [] Not present at the time of admission [] Clinically Undetermined In responding to this query, please exercise your independent professional judgment. The fact that a question is asked does not imply that any particular answer is desired or expected. Thank you for your clarification on this documentation. If you have any questions please call. * Thank you, Nicky Holt RN ext. [phone]: Megan PICHARDO
== END 2017-07-06 17:25 | DRG 291 ==
LOC: H.ER 00:16 → H.ERHOLD 02:38 → H.TEL 04:09
PROVIDERS: ADMIT Internal Medicine; ATTEND Internal Medicine
PROC: 5A1D00Z (ICD-10-PCS; principal; 2017-07-05)
DX: I13.2 Hypertensive heart and chronic kidney disease with heart failure and with stage 5 chronic kidney disease, or end stage renal disease (principal); N18.6 End stage renal disease; E11.22 Type 2 diabetes mellitus with diabetic chronic kidney disease; I50.23 Acute on chronic systolic (congestive) heart failure; J44.9 Chronic obstructive pulmonary disease, unspecified; D63.8 Anemia in other chronic diseases classified elsewhere; D72.829 Elevated white blood cell count, unspecified; E78.00 Pure hypercholesterolemia, unspecified; E78.5 Hyperlipidemia, unspecified; F17.200 Nicotine dependence, unspecified, uncomplicated; I25.10 Atherosclerotic heart disease of native coronary artery without angina pectoris; I25.5 Ischemic cardiomyopathy; K21.9 Gastro-esophageal reflux disease without esophagitis; Z79.4 Long term (current) use of insulin; Z79.82 Long term (current) use of aspirin; Z79.899 Other long term (current) drug therapy; Z87.01 Personal history of pneumonia (recurrent); Z95.5 Presence of coronary angioplasty implant and graft; Z99.2 Dependence on renal dialysis; R74.8 Abnormal levels of other serum enzymes; E11.65 Type 2 diabetes mellitus with hyperglycemia

== ENCOUNTER 2017-07-18 04:58 | Observation (INO) | payer MEDICARE, BC ==
[2017-07-18] MEDS ORDERED: Albuterol-Ipratrop 3 mg / 0.5 (3 ml) UD INH STA (05:29)
--- NOTE | 2017-07-18 05:39 | ED PDOC ---
HPI: SOB/CHF/COPD Time Seen by Provider: 07/18/17 05:01 Chief Complaint (Nursing): Shortness Of Breath Chief Complaint (Provider): Shortness of breath History Per: Patient History/Exam Limitations: no limitations Onset/Duration Of Symptoms: Sudden Onset Current Symptoms Are (Timing): Still Present Context: ocurred at rest Exacerbating Factor(s): Exertion, Laying Flat Current Respiratory Medications: None Severity: Severe Associated Symptoms: denies: Fever, Chills, Sweating Additional Complaint(s): Pt. seen in the E.D. for evaluation of shortness of breath. Pt. states he was sleeping in bed and suddenly woke up because of shortness of breath. Pt. called EMS and arrived to E.D. for evaluation. Pt. has a history of CAD s/p stent x 4 and CKD on HD via Rt. arm fistula. Pt. states he gets dialysis but had a extra dialysis scheduled on Wednesday but missed his appointment. Pt. states he has been taking his medications regularly but does not take any medications via inhalation. Pt. also states he sees a transformer assembler but is not sure if has any respiratory problems. Pt. states this is the first time he has woken up from sleep with shortness of breath. - Risk Factors PE Risk Factors: Pos: CHF Past Medical History Vital Signs: Last Vital Signs Temp 99.5 F 07/18/17 06:47 Pulse 85 07/18/17 06:47 Resp 18 07/18/17 06:47 BP 111/66 07/18/17 06:47 Pulse Ox 100 07/18/17 07:02 - Medical History PMH: CAD ([place]), CHF, Diabetes, HTN, Hypercholesterolemia, Pneumonia, End Stage Renal Disease, Chronic Kidney Disease Denies: HIV, Kidney Stones - Surgical History Surgical History: Coronary Stent (x4) - Family History Family History: States: Unknown Family Hx, Hypertension - Living Arrangements Living Arrangements: Alone - Social History Current smoker - smoking cessation education provided: No Ex-Smoker (has not smoked in the last 12 months): No Alcohol: None Drugs: Denies - Home Medications Home Medications: Ambulatory Orders Medication Instructions Recorded Insulin Glargine, Recombina 10 units SQ DAILY 09/16/16 [Lantus] Insulin Lispro [Humalog Kwikpen 4 units SQ TID 09/16/16 U-100] Aspirin [Ecotrin] 81 mg PO DAILY #30 tabec 07/06/17 Calcium Acetate [Phoslo] 3 tab PO TIDPC #90 tab 07/06/17 Cinacalcet [Sensipar] 30 mg PO DAILY #30 tab 07/06/17 Mometasone 0.1% [Elocon Cream] 1 appl TD DAILY #1 tube 07/06/17 Pravastatin Sodium 40 mg PO HS #30 tablet 07/06/17 Ticagrelor [Brilinta] 90 mg PO BID #60 tab 07/06/17 - Allergies Allergies/Adverse Reactions: Allergies Allergy/AdvReac Type Severity Reaction Status Date / Time Sulfa (Sulfonamide Allergy PAIN Verified 07/18/17 05:21 Antibiotics) milk AdvReac NAUSEA Verified 07/18/17 05:21 Curb-65 Severity Score - CURB-65 Severity Score Confusion: No Bun >19mg/dl (>7mmol/L): Yes Respiratory Rate greater than/equal to 30: Yes Systolic BP <90 or Diastolic BP less than/equal 60mmHg: No Curb-65 Score: 2 Percentage 30-day mortality: 6.8% Wells Criteria for PE - Wells Criteria for Pulmonary Embolism Clinical Signs and Symptoms of DVT: No Heart Rate >100: Yes Immobilization at least 3 days;Surgery previous 4 weeks: No Previous, objectively diagnosed PE or DVT: No Hemoptysis: No Malignancy w/treatment within 6 months, or palliative: No Total Score: 1.5 Review of Systems Constitutional: Negative for: Fever, Chills Eyes: Negative for: Pain, Vision Change ENT: Negative for: Ear Pain, Ear Discharge Cardiovascular: Negative for: Chest Pain, Palpitations Respiratory: Positive for: Cough, Shortness of Breath, SOB with Exertion, Wheezing. Negative for: Hemoptysis, Pleuritic Pain, Sputum Gastrointestinal: Negative for: Nausea, Vomiting, Abdominal Pain Musculoskeletal: Negative for: Neck Pain, Shoulder Pain Skin: Negative for: Rash, Lesions Neurological: Negative for: Weakness, Numbness Psych: Negative for: Anxiety, Depression Physical Exam - Reviewed Vital Signs Reviewed: Yes - Physical Exam Appears: Positive for: In Acute Distress (using accessory muscles of respiration ) Head Exam: Positive for: ATRAUMATIC, NORMOCEPHALIC Skin: Positive for: Warm, Dry Eye Exam: Positive for: Normal appearance. Negative for: Conjunctival injection Neck: Positive for: Supple, Trachea Midline Cardiovascular/Chest: Positive for: Murmur (+systolic murmur grade 1 aortic area ) Respiratory: Positive for: Accessory Muscle Use, Crackles, Wheezing (diminished air entry bilat bases ), Respiratory Distress Gastrointestinal/Abdominal: Positive for: Soft. Negative for: Tenderness Extremity: Positive for: Pedal Edema (+2 below the level of the knees ) Neurologic/Psych: Positive for: Alert, Oriented - Laboratory Results Result Diagrams: 07/18/17 05:15 07/18/17 05:15 - ECG O2 Sat by Pulse Oximetry: 100 - Progress ED Course And Treament: 1- EKG- No change when compared to previous EKG 2- CXR- No change when compared to previous CXR 3- CBC- WNL 4- CMP- Creatinine 8.1 5- ABG- WNL 6- Pro-Bnp- elevated 53,800 7- Troponin- WNL 9- Duoneb x 2 10- Spoke with Nephrology consult Dr. Ortiz Re-evaluation Time: 07:00 Condition: Re-examined, Improving,but remains with symptoms Nebulizer Treatments/Peak Flow - Duonebs Number of Bronchodilator Doses given?: 1 Medical Decision Making Medical Decision Makin y.o. male with hx of HTN, DM, CKD on HD -W- and CAD s/p Stent x 4 will be admitted due to shortness of breath most likely due to acute CHF exacerbation given elevated Pro-BNP, shortness of breath, and elevated creatinine of 8.1. Call placed to Nephrology Dr. Ortiz and agreed pt. for admission given acute shortness of breath and multiple co-morbid conditions. Disposition - Clinical Impression Clinical Impression: Acute exacerbation of CHF (congestive heart failure) - Patient ED Disposition Is Patient to be Admitted: Yes Discussed With DrShar: Linda Cabrera - Disposition Disposition Time: 07:12 Condition: FAIR Forms: [employer] (Albanian) - Pt Status Changed To: Hospital Disposition Of: Inpatient - Admit Certification Admit to Inpatient:: After my assessment, the patient will require hospitalization for at least two midnights. This is because of the severity of symptoms shown, intensity of services needed, and/or the medical risk in this patient being treated as an outpatient.
[2017-07-18 05:41] VITALS: BMI 29.9
[2017-07-18 05:47] LABS: BASO # 0.1 K/uL (0.0-0.2); BASO % 0.7 % (0.0-2.0); EOS # 0.1 K/uL (0.0-0.7); EOS % 1.7 % (0.0-4.0); HEMATOCRIT 32.6 % (35.0-51.0); LYMPH # 0.9 K/uL (1.0-4.3); LYMPH % 10.4 % (20.0-40.0); MEAN CELL VOLUME 89.9 fl (80.0-94.0); MEAN CORPUSCULAR HEMOGLOBIN 28.6 pg (27.0-31.0); MEAN CORPUSCULAR HGB CONC 31.8 g/dL (33.0-37.0); MEAN PLATELET VOLUME 8.4 fl (7.2-11.7); MONO # 0.4 K/uL (0.0-0.8); MONO % 4.9 % (0.0-10.0); NEUT # 6.9 K/uL (1.8-7.0); NEUT % 82.3 % (50.0-75.0); RED CELL DISTRIBUTION WIDTH 15.2 % (11.5-14.5); WHITE BLOOD COUNT 8.3 K/uL (4.8-10.8)
[2017-07-18 05:51] LABS: PARTIAL THROMBOPLASTIN TIME 24.8 Seconds (25.6-37.1)
[2017-07-18 05:52] LABS: CALCIUM 9.6 mg/dL (8.4-10.2); POTASSIUM 4.1 MMOL/L (3.6-5.0)
[2017-07-18 05:59] LABS: ABG ALLEN TEST YES; ARTERIAL BLOOD GAS HCO3 29.6 mmol/L (21-28); ARTERIAL BLOOD GAS MODE 4L NC; ARTERIAL BLOOD GAS PH 7.46 (7.35-7.45); ARTERIAL BLOOD GAS PO2 74 mm/Hg (80-100)
[2017-07-18 06:04] LABS: TROPONIN I 0.05 ng/mL (0.00-0.120)
--- NOTE | 2017-07-18 07:48 | CP.PCM.HP ---
History of Present Illness - History of Present Illness History of Present Illness: 77 years old male with PMH CAD ([place]), CHF, Diabetes, HTN, HLD, End Stage Renal Disease on Hemodialysis M W F with multiple admissions to [facility] fot fluid overload presented to ED complaining of SOB . He states that was scheduled for extra HD yesterday but missed his appointment . He states that woke up from sleep with dyspnea so decided to call EMS that brought him to Er for evaluation. Patient did have O2 Sat 86 % as per EMS note an d after being placed on O2 via NC his OP2 sat were recorded 96 % .Denies fever, chills, nor urinary symptoms. ProBNP found to be elevated Nephrology was consulted for stat HD.Patient to be placed under observation in telemetry . PMH; CAD ([place]), CHF, Diabetes, HTN, HLD, End Stage Renal Disease on Hemodialysis M W ; Pneumonia. PSH; Right A-V fistula for dialysis; Coronary stent X4 placement FH: HTN SH: Heavy smoker; No alcohol; No illegal drug use; live with the family Allergies: Sulfa and Milk Code status: Full ROS ; complains of dyspnea .All the rest of system review is negative except above. Present on Admission - Present on Admission Any Indicators Present on Admission: No Review of Systems - Review of Systems All systems: reviewed and no additional remarkable complaints except Past Patient History - Infectious Disease Hx of Infectious Diseases: None - Tetanus Immunizations Tetanus Immunization: Unknown - Past Medical History & Family History Past Medical History?: Yes - Past Social History Alcohol: None Drugs: Denies - CARDIAC Hx Congestive Heart Failure: Yes Hx Hypercholesterolemia: Yes Hx Hypertension: Yes - PULMONARY Hx Pneumonia: Yes - NEUROLOGICAL Hx Neurological Disorder: No - HEENT Hx HEENT Problems: No - RENAL Hx Chronic Kidney Disease: Yes Hx Kidney Stones: No - ENDOCRINE/METABOLIC Hx Endocrine Disorders: Yes Hx Diabetes Mellitus Type 2: Yes - HEMATOLOGICAL/ONCOLOGICAL Hx Human Immunodeficiency Virus (HIV): No - INTEGUMENTARY Hx Cellulitis: Yes - MUSCULOSKELETAL/RHEUMATOLOGICAL Hx Falls: No - GASTROINTESTINAL Hx Gastrointestinal Disorders: Yes Hx Colitis: Yes Hx Gastroesophageal Reflux: Yes Other/Comment: Hx Salmonella Gastroenteritis - GENITOURINARY/GYNECOLOGICAL Hx Genitourinary Disorders: No - PSYCHIATRIC Hx Psychophysiologic Disorder: No Hx Substance Use: No - SURGICAL HISTORY Hx Coronary Stent: Yes (x4) - ANESTHESIA Hx Anesthesia: Yes Hx Anesthesia Reactions: No Hx Malignant Hyperthermia: No Meds Allergies/Adverse Reactions: Allergies Allergy/AdvReac Type Severity Reaction Status Date / Time Sulfa (Sulfonamide Allergy PAIN Verified 07/18/17 05:21 Antibiotics) milk AdvReac NAUSEA Verified 07/18/17 05:21 Physical Exam - Constitutional Appears: Non-toxic, In Acute Distress (with respiratory distress), Other (obese) - Head Exam Head Exam: ATRAUMATIC, NORMAL INSPECTION, NORMOCEPHALIC - Eye Exam Eye Exam: EOMI, Normal appearance, PERRL Pupil Exam: NORMAL ACCOMODATION - ENT Exam ENT Exam: Mucous Membranes Moist, Normal Exam - Neck Exam Neck exam: Positive for: Full Rom, Normal Inspection - Respiratory Exam Respiratory Exam: Accessory Muscle Use, Rales, Rhonchi, Respiratory Distress - Cardiovascular Exam Cardiovascular Exam: REGULAR RHYTHM, RRR, +S1, +S2. absent: JVD - GI/Abdominal Exam GI & Abdominal Exam: Normal Bowel Sounds, Soft. absent: Distended, Guarding, Rebound, Tenderness - Rectal Exam Rectal Exam: Deferred - Extremities Exam Extremities exam: Positive for: normal capillary refill, normal inspection, pedal pulses present. Negative for: calf tenderness, pedal edema - Back Exam Back exam: NORMAL INSPECTION - Neurological Exam Neurological exam: Alert, CN II-XII Intact, Oriented x3, Reflexes Normal - Psychiatric Exam Psychiatric exam: Normal Affect, Normal Mood - Skin Skin Exam: Dry, Pallor, Warm Results - Vital Signs Recent Vital Signs: Last Vital Signs Temp 99.5 F 07/18/17 06:47 Pulse 85 07/18/17 06:47 Resp 18 07/18/17 06:47 BP 111/66 07/18/17 06:47 Pulse Ox 100 07/18/17 07:12 - Labs Result Diagrams: 07/18/17 05:15 07/18/17 05:15 Labs: Laboratory Results - last 24 hr 07/18/17 07/18/17 07/18/17 05:15 05:15 05:15 WBC 8.3 RBC 3.62 L Hgb 10.3 L Hct 32.6 L MCV 89.9 MCH 28.6 MCHC 31.8 L RDW 15.2 H Plt Count 164 MPV 8.4 Neut % (Auto) 82.3 H Lymph % (Auto) 10.4 L [place] % (Auto) 4.9 Eos % (Auto) 1.7 Baso % (Auto) 0.7 Neut # 6.9 Lymph # 0.9 L [place] # 0.4 Eos # 0.1 Baso # 0.1 PT 10.8 INR 1.0 APTT 24.8 L pCO2 pO2 HCO3 ABG pH ABG Total CO2 ABG O2 Saturation ABG Base Excess Manuel Test ABG Potassium A-a O2 Difference Glucose Lactate Vent Mode FiO2 Sodium 143 Potassium 4.1 Chloride 98 Carbon Dioxide 24 Anion Gap 26 H BUN 62 H Creatinine 8.1 H* Est GFR ( Amer) 8 Est GFR (Non-Af Amer) 6 POC Glucose (mg/dL) Random Glucose 158 H Calcium 9.6 Troponin I 0.0500 NT-Pro-B Natriuret Pep 83705 H Arterial Blood Potassium 07/18/17 07/18/17 05:16 05:50 WBC RBC Hgb Hct MCV MCH MCHC RDW Plt Count MPV Neut % (Auto) Lymph % (Auto) [place] % (Auto) Eos % (Auto) Baso % (Auto) Neut # Lymph # [place] # Eos # Baso # PT INR APTT pCO2 43 pO2 74 L HCO3 29.6 H ABG pH 7.46 H ABG Total CO2 31.9 H ABG O2 Saturation 99.5 H ABG Base Excess 6.0 H Manuel Test Yes ABG Potassium 3.8 A-a O2 Difference 129.0 Glucose 167 H Lactate 0.7 Vent Mode 4l nc FiO2 36.0 Sodium 138.0 Potassium Chloride 100.0 Carbon Dioxide Anion Gap BUN Creatinine Est GFR ( Amer) Est GFR (Non-Af Amer) POC Glucose (mg/dL) 184 H Random Glucose Calcium Troponin I NT-Pro-B Natriuret Pep Arterial Blood Potassium 3.8 - Imaging and Cardiology Chest x-ray Additional comment: Bilateral vascular congestion Assessment & Plan - Assessment and Plan (Free Text) Assessment: 77 years old male with PMH CAD ([place]), CHF, Diabetes, HTN, HLD, End Stage Renal Disease on Hemodialysis M W with multiple admissions to [facility] fot fluid overload presented to ED complaining of SOB . He states that was scheduled for extra HD yesterday but missed his appointment . He states that woke up from sleep with dyspnea so decided to call EMS that brought him to Er for evaluation. Patient did have O2 Sat 86 % as per EMS note an d after being placed on O2 via NC his OP2 sat were recorded 96 % .Denies fever, chills, nor urinary symptoms. ProBNP found to be elevated Nephrology was consulted for stat HD.Patient to be placed under observation in telemetry . 1. Acute CHF exacerbation with Volume overload patient has systolic and diastolic dysfunction with EF 35 % ( prior medical records reviewed) No Lasix IV as patient is anuric stat nephro consult for HD Continue home meds O2 via NC Will d/c home after HD . Patient to continue with HD as scheduled 2. ESRD on HD consult Dr Ortiz nephrology Stat Dialysis 3. Anemia of Chronic Disease - follow Hb 4. DM II Diabetic diet lispro Insulin with sliding scale according to accucheck resume home meds Humalog and Levemir 5. CAD s/p Stents placement resume ASA/ Brilinta/ Metoprolol/ Pravastatin trop negative 6. HTN controlled onm Metoprolol 7. DVT prophylaxis patient on Sub Q Heparin
--- NOTE | 2017-07-18 09:59 | RAD ---
HISTORY: esrd, missed dialysis, sob COMPARISON: Chest x-ray performed 07/05/17 TECHNIQUE: Chest, one view. FINDINGS: Examination limited by habitus. LUNGS: Multifocal infiltrates. Mild pulmonary venous congestion. No focal consolidation. Please note that chest x-ray has limited sensitivity for the detection of pulmonary masses. PLEURA: Small pleural effusions. No definite pneumothorax . CARDIOVASCULAR: Cardiomegaly. Dense atherosclerotic calcifications of the aorta. OSSEOUS STRUCTURES: Degenerative changes. VISUALIZED UPPER ABDOMEN: Unremarkable. OTHER FINDINGS: Vascular stent projects over the right upper chest. IMPRESSION: Pulmonary venous congestion. Multifocal infiltrates. Small bilateral pleural effusions. Cardiomegaly.
[2017-07-18] MEDS ORDERED: Insulin Lispro (humaLOG) 100 Units/ml Inj SC SCH ×2 (11:30→13:00)
--- NOTE | 2017-07-18 12:30 | CP.PCM.CON ---
History of Present Illness - History of Present Illness History of Present Illness: 77 years old w/ PMH CAD ([place]), ESRD, CHF, Diabetes, HTN, HLD that presented w/ SOB. He was set up for an extra HD treatment on Wednesday by Dr. Mejia but did not show. He woke up at 4 am this morning w/ severe sob and came in for eval. He denies cp associated or n/v. He denies ay fever or chills. He was hypoxic w / EMS and has been hypertensive. ros: a full detailed ROS is negative except as in my HPI PMH; CAD ([place]), CHF, Diabetes, HTN, HLD, End Stage Renal Disease on Hemodialysis M W F; Pneumonia. PSH; Right A-V fistula for dialysis; Coronary stent X4 placement FH: HTN SH: + smoking history, no ivdu or etoh Past Patient History - Infectious Disease Hx of Infectious Diseases: None - Tetanus Immunizations Tetanus Immunization: Unknown - Past Medical History & Family History Past Medical History?: Yes - Past Social History Alcohol: None Drugs: Denies - CARDIAC Hx Congestive Heart Failure: Yes Hx Hypercholesterolemia: Yes Hx Hypertension: Yes - PULMONARY Hx Pneumonia: Yes - NEUROLOGICAL Hx Neurological Disorder: No - HEENT Hx HEENT Problems: No - RENAL Hx Chronic Kidney Disease: Yes Hx Kidney Stones: No - ENDOCRINE/METABOLIC Hx Endocrine Disorders: Yes Hx Diabetes Mellitus Type 2: Yes - HEMATOLOGICAL/ONCOLOGICAL Hx Human Immunodeficiency Virus (HIV): No - INTEGUMENTARY Hx Cellulitis: Yes - MUSCULOSKELETAL/RHEUMATOLOGICAL Hx Falls: No - GASTROINTESTINAL Hx Gastrointestinal Disorders: Yes Hx Colitis: Yes Hx Gastroesophageal Reflux: Yes Other/Comment: Hx Salmonella Gastroenteritis - GENITOURINARY/GYNECOLOGICAL Hx Genitourinary Disorders: No - PSYCHIATRIC Hx Psychophysiologic Disorder: No Hx Substance Use: No - SURGICAL HISTORY Hx Coronary Stent: Yes (x4) - ANESTHESIA Hx Anesthesia: Yes Hx Anesthesia Reactions: No Hx Malignant Hyperthermia: No Meds Allergies/Adverse Reactions: Allergies Allergy/AdvReac Type Severity Reaction Status Date / Time Sulfa (Sulfonamide Allergy PAIN Verified 07/18/17 05:21 Antibiotics) milk AdvReac NAUSEA Verified 07/18/17 05:21 - Medications Medications: Current Medications Acetaminophen (Tylenol 325mg Tab) 650 mg PO Q6 PRN PRN Reason: Fever >100.4 F Aspirin (Ecotrin) 81 mg PO DAILY RIA Last Admin: 07/18/17 10:00 Dose: 81 mg Calcium Acetate (Phoslo) 2,001 mg PO TIDPC RIA Cinacalcet (Sensipar) 30 mg PO DAILY [facility] Last Admin: 07/18/17 10:20 Dose: 30 mg Heparin Sodium (Porcine) (Heparin) 5,000 units SC Q12 RIA PRN Reason: Protocol Last Admin: 07/18/17 10:30 Dose: 5,000 units Home Med (Mometasone 0.1% [Elocon Cream]) 1 appl TD DAILY RIA Insulin Detemir (Levemir) 10 units SC DAILY RIA Insulin Human Lispro (Humalog) 4 units SC TID RIA Insulin Human Lispro (Humalog) 0 units SC ACHS RIA PRN Reason: Protocol Ondansetron HCl (Zofran Inj) 4 mg IVP Q6 PRN PRN Reason: Nausea/Vomiting Pravastatin Sodium (Pravachol) 40 mg PO HS RIA Ticagrelor (Brilinta) 90 mg PO BID [facility] Physical Exam - Constitutional Appears: Non-toxic - Head Exam Head Exam: ATRAUMATIC - Eye Exam Eye Exam: Normal appearance - ENT Exam ENT Exam: Normal Exam - Neck Exam Neck exam: Positive for: Normal Inspection - Respiratory Exam Additional comments: dec bs at bases w/ scattered [id number] - Cardiovascular Exam Cardiovascular Exam: +S1, +S2 - GI/Abdominal Exam GI & Abdominal Exam: Normal Bowel Sounds - Extremities Exam Additional comments: trace edema - Back Exam Back exam: NORMAL INSPECTION - Neurological Exam Neurological exam: Alert, Oriented x3 - Psychiatric Exam Psychiatric exam: Normal Affect, Normal Mood - Skin Skin Exam: Normal Color Results - Vital Signs Recent Vital Signs: Last Vital Signs Temp 97.6 F 07/18/17 08:00 Pulse 79 07/18/17 08:15 Resp 22 07/18/17 08:15 BP 110/70 07/18/17 08:15 Pulse Ox 98 07/18/17 08:00 - Labs Result Diagrams: 07/18/17 05:15 07/18/17 05:15 Labs: Laboratory Results - last 24 hr 07/18/17 07/18/17 07/18/17 05:15 05:15 05:15 WBC 8.3 RBC 3.62 L Hgb 10.3 L Hct 32.6 L MCV 89.9 MCH 28.6 MCHC 31.8 L RDW 15.2 H Plt Count 164 MPV 8.4 Neut % (Auto) 82.3 H Lymph % (Auto) 10.4 L [place] % (Auto) 4.9 Eos % (Auto) 1.7 Baso % (Auto) 0.7 Neut # 6.9 Lymph # 0.9 L [place] # 0.4 Eos # 0.1 Baso # 0.1 PT 10.8 INR 1.0 APTT 24.8 L pCO2 pO2 HCO3 ABG pH ABG Total CO2 ABG O2 Saturation ABG Base Excess Manuel Test ABG Potassium A-a O2 Difference Glucose Lactate Vent Mode FiO2 Sodium 143 Potassium 4.1 Chloride 98 Carbon Dioxide 24 Anion Gap 26 H BUN 62 H Creatinine 8.1 H* Est GFR ( Amer) 8 Est GFR (Non-Af Amer) 6 POC Glucose (mg/dL) Random Glucose 158 H Calcium 9.6 Troponin I 0.0500 NT-Pro-B Natriuret Pep 06491 H Arterial Blood Potassium 07/18/17 07/18/17 07/18/17 05:16 05:50 11:33 WBC RBC Hgb Hct MCV MCH MCHC RDW Plt Count MPV Neut % (Auto) Lymph % (Auto) [place] % (Auto) Eos % (Auto) Baso % (Auto) Neut # Lymph # [place] # Eos # Baso # PT INR APTT pCO2 43 pO2 74 L HCO3 29.6 H ABG pH 7.46 H ABG Total CO2 31.9 H ABG O2 Saturation 99.5 H ABG Base Excess 6.0 H Manuel Test Yes ABG Potassium 3.8 A-a O2 Difference 129.0 Glucose 167 H Lactate 0.7 Vent Mode 4l nc FiO2 36.0 Sodium 138.0 Potassium Chloride 100.0 Carbon Dioxide Anion Gap BUN Creatinine Est GFR ( Amer) Est GFR (Non-Af Amer) POC Glucose (mg/dL) 184 H 151 H Random Glucose Calcium Troponin I NT-Pro-B Natriuret Pep Arterial Blood Potassium 3.8 Assessment & Plan - Assessment and Plan (Free Text) Assessment: ESRD/ Hypertensive CKD / Diabetes II Nephropathy/ Anemia/ Secondary hyperparathyroidism plan: will do 2 hour treatment today nad remove 2-3 kg as tolerated discussed outpt compliance w/ therapy YANET as outpt continue phos binders BP well controlled
[2017-07-18 15:46] VITALS: BP 108/63; PULSE 75; RESP 20; TEMP 97.6; O2SAT 94
--- NOTE | 2017-07-18 19:38 | CARD ---
APPROVED REPORT EKG Measurement Heart [id number] <Conclusion> Sinus Tachycardia with frequent PCVs T wave abnormality, consider lateral ischemia Abnormal ECG
[2017-07-18] MEDS ORDERED: Pravastatin Sodium 40 MG TAB PO SCH (22:00)
[2017-07-19] MEDS ORDERED: MOMETASONE 0.1% TD SCH (09:00)
[2017-07-19] MEDS ORDERED: APPL TD SCH (09:00)
[2017-07-19] MEDS ORDERED: Insulin Detemir 100 Units/ml Inj SC SCH (09:00)
== END 2017-07-18 17:01 | disposition home or self-care (01) ==
LOC: H.ER 04:58 → H.ERHOLD 06:58 → H.TEL 08:05
PROVIDERS: ADMIT Hospitalist; ATTEND Hospitalist
DX: I13.2 Hypertensive heart and chronic kidney disease with heart failure and with stage 5 chronic kidney disease, or end stage renal disease (principal); D63.8 Anemia in other chronic diseases classified elsewhere; E11.22 Type 2 diabetes mellitus with diabetic chronic kidney disease; E78.00 Pure hypercholesterolemia, unspecified; E78.5 Hyperlipidemia, unspecified; F17.200 Nicotine dependence, unspecified, uncomplicated; I25.10 Atherosclerotic heart disease of native coronary artery without angina pectoris; I50.43 Acute on chronic combined systolic (congestive) and diastolic (congestive) heart failure; J44.9 Chronic obstructive pulmonary disease, unspecified; K21.9 Gastro-esophageal reflux disease without esophagitis; N18.6 End stage renal disease; N25.81 Secondary hyperparathyroidism of renal origin; R09.02 Hypoxemia; Z79.4 Long term (current) use of insulin; Z79.82 Long term (current) use of aspirin; Z87.01 Personal history of pneumonia (recurrent); Z95.5 Presence of coronary angioplasty implant and graft; Z99.2 Dependence on renal dialysis
CPT/HCPCS: 71010; 80048; 82803; 82948; 83880; 84484; 85025; 85610; 85730; 87340; 93005; 94150; 94640; 99285; G0378; J1644

== ENCOUNTER 2018-01-26 04:27 | Inpatient (IN) | payer MEDICARE ==
[2018-01-26 04:33] VITALS: BMI 49.8
[2018-01-26] MEDS ORDERED: Nitroglycerin 50mg in D5W 50 MG/250 ML BOTTLE IV ONE (04:34)
[2018-01-26] MEDS ORDERED: Albuterol-Ipratrop 3 mg / 0.5 (3 ml) UD ONE (04:34)
[2018-01-26] MEDS ORDERED: Nitroglycerin 50mg in D5W 250 ML IV ONE (04:35)
[2018-01-26] MEDS ORDERED: Albuterol-Ipratrop 3 mg / 0.5 (3 ml) UD INH STA (04:50)
--- NOTE | 2018-01-26 04:53 | ED PDOC ---
HPI: SOB/CHF/COPD Time Seen by Provider: 01/26/18 04:31 Chief Complaint (Nursing): Respiratory Distress Chief Complaint (Provider): Respiratory Distress History Per: Patient History/Exam Limitations: no limitations Onset/Duration Of Symptoms: Sudden Onset Current Symptoms Are (Timing): Still Present Additional Complaint(s): 77 year old male with medical history of CHF and end-stage renal disease, presents to the emergency department via EMS for sudden onset of shortness of breath prior to arrival. Patient usually attends dialysis treatment on // and states compliance with medications. He denies any fever, chills or diarrhea. Patient was given CPAP with (2)Nitroglycerin and Lasix 40mg in field. PMD: none provided Past Medical History Reviewed: Historical Data Vital Signs: Last Vital Signs Temp 98.5 F 01/26/18 06:36 Pulse 100 H 01/26/18 06:36 Resp 12 01/26/18 06:36 BP 131/59 L 01/26/18 06:36 Pulse Ox 100 01/26/18 06:36 - Medical History PMH: CAD, CHF, Diabetes, HTN, Hypercholesterolemia, Pneumonia, End Stage Renal Disease, Chronic Kidney Disease Denies: HIV, Kidney Stones - Surgical History Surgical History: Coronary Stent (x4) - Family History Family History: States: Unknown Family Hx, Hypertension - Home Medications Home Medications: Ambulatory Orders Medication Instructions Recorded Insulin Glargine, Recombina 10 units SQ DAILY 09/16/16 [Lantus] Insulin Lispro [Humalog Kwikpen 4 units SQ TID 09/16/16 U-100] Aspirin [Ecotrin] 81 mg PO DAILY #30 tabec 07/06/17 Calcium Acetate [Phoslo] 3 tab PO TIDPC #90 tab 07/06/17 Cinacalcet [Sensipar] 30 mg PO DAILY #30 tab 07/06/17 Mometasone 0.1% [Elocon Cream] 1 appl TD DAILY #1 tube 07/06/17 Pravastatin Sodium 40 mg PO HS #30 tablet 07/06/17 Ticagrelor [Brilinta] 90 mg PO BID #60 tab 07/06/17 - Allergies Allergies/Adverse Reactions: Allergies Allergy/AdvReac Type Severity Reaction Status Date / Time Sulfa (Sulfonamide Allergy PAIN Verified 01/26/18 04:37 Antibiotics) milk AdvReac NAUSEA Verified 01/26/18 04:37 Review of Systems ROS Statement: Except As Marked, All Systems Reviewed And Found Negative Constitutional: Negative for: Fever, Chills Respiratory: Positive for: Shortness of Breath Gastrointestinal: Negative for: Diarrhea Physical Exam - Reviewed Nursing Documentation Reviewed: Yes Vital Signs Reviewed: Yes - Physical Exam Appears: Positive for: Non-toxic, In Acute Distress (mild) Head Exam: Positive for: ATRAUMATIC, NORMAL INSPECTION, NORMOCEPHALIC Skin: Positive for: Normal Color Eye Exam: Positive for: Normal appearance Cardiovascular/Chest: Positive for: Chest Non Tender, Tachycardia. Negative for : Regular Rate, Rhythm Respiratory: Positive for: Decreased Breath Sounds, Crackles (bilateral bases), Respiratory Distress (mild) Gastrointestinal/Abdominal: Positive for: Soft, Other (obese appearance) Extremity: Positive for: Normal ROM (upper/lower) Neurologic/Psych: Positive for: Alert, Oriented - Laboratory Results Result Diagrams: 01/26/18 05:00 01/26/18 05:00 - ECG O2 Sat by Pulse Oximetry: 100 (CPAP) Pulse Ox Interpretation: Normal - Radiology X-Ray: Interpreted by Me X-Ray Interpretation: Cardiomegaly, Other (bilateral pulmonary vascular congestion) - Critical Care Total Time (In Min): 30 Documented Critical Care: Time excludes all time spent performint seperately billable procedures Medical Decision Making Medical Decision Making: Initial Impression: 77 y/o male with shortness of breath in setting of known CHF and end-stage renal disease Initial Plan: * EKG * CMP * Troponin I * CBC * PTT * PT * CXR * Nitroglycerin 250ml IV per 5mcg/min * Accucheck * UA Time: 0453 --CXR: bilateral pulmonary vascular congestion and cardiomegaly noted. --Patient will be admitted for further treatment of CHF and renal failure. --Case referred to hospitalist, Dr. Duvall. Scribe Attestation: Documented by Yolanda Subramanian, acting as a scribe for Micheal Mcgraw MD. Provider Scribe Attestation: All medical record entries made by the Scribe were at my direction and personally dictated by me. I have reviewed the chart and agree that the record accurately reflects my personal performance of the history, physical exam, medical decision making, and the department course for this patient. I have also personally directed, reviewed, and agree with the discharge instructions and disposition. Disposition - Clinical Impression Clinical Impression: Volume overload, Respiratory failure, Acute exacerbation of CHF (congestive heart failure) - Patient ED Disposition Is Patient to be Admitted: Yes - Disposition Disposition Time: 04:45 Condition: GUARDED Critical Care Time - Critical Care Note Total Time (in mins): 30 Documented critical care: time excludes all time spent performing seperately billable procedures.
--- NOTE | 2018-01-26 04:56 | ED PDOC ---
HPI: SOB/CHF/COPD Time Seen by Provider: 01/26/18 04:31 Chief Complaint (Nursing): Respiratory Distress Past Medical History Vital Signs: Last Vital Signs Temp 97 F L 01/26/18 04:37 Pulse 127 H 01/26/18 04:42 Resp 28 H 01/26/18 04:37 BP 113/59 L 01/26/18 04:37 Pulse Ox 100 01/26/18 04:37 - Medical History PMH: CAD, CHF, Diabetes, HTN, Hypercholesterolemia, Pneumonia, End Stage Renal Disease, Chronic Kidney Disease Denies: HIV, Kidney Stones - Surgical History Surgical History: Coronary Stent (x4) - Family History Family History: States: Unknown Family Hx, Hypertension - Home Medications Home Medications: Ambulatory Orders Medication Instructions Recorded Insulin Glargine, Recombina 10 units SQ DAILY 09/16/16 [Lantus] Insulin Lispro [Humalog Kwikpen 4 units SQ TID 09/16/16 U-100] Aspirin [Ecotrin] 81 mg PO DAILY #30 tabec 07/06/17 Calcium Acetate [Phoslo] 3 tab PO TIDPC #90 tab 07/06/17 Cinacalcet [Sensipar] 30 mg PO DAILY #30 tab 07/06/17 Mometasone 0.1% [Elocon Cream] 1 appl TD DAILY #1 tube 07/06/17 Pravastatin Sodium 40 mg PO HS #30 tablet 07/06/17 Ticagrelor [Brilinta] 90 mg PO BID #60 tab 07/06/17 - Allergies Allergies/Adverse Reactions: Allergies Allergy/AdvReac Type Severity Reaction Status Date / Time Sulfa (Sulfonamide Allergy PAIN Verified 01/26/18 04:37 Antibiotics) milk AdvReac NAUSEA Verified 01/26/18 04:37 - ECG O2 Sat by Pulse Oximetry: 100 Medical Decision Making Medical Decision Making: Initial Impression: 77 y/o male with shortness of breath in setting of known CHF Initial Plan: * EKG * CMP * Troponin I * CBC * PTT * PT * CXR * Nitroglycerin 250ml IV per 5mcg/min * Accucheck * UA Time: 045 --CXR: --Patient will be admitted for further treatment of CHF and renal failure. --Case referred to hospitalistDr. Duvall. Scribe Attestation: Documented by Yolanda Subramanian, acting as a scribe for Micheal Mcgraw MD. Provider Scribe Attestation: All medical record entries made by the Scribe were at my direction and personally dictated by me. I have reviewed the chart and agree that the record accurately reflects my personal performance of the history, physical exam, medical decision making, and the department course for this patient. I have also personally directed, reviewed, and agree with the discharge instructions and disposition. Disposition - Disposition
[2018-01-26] MEDS ORDERED: Albuterol-Ipratrop 3 mg / 0.5 (3 ml) UD INH PRN (05:20)
--- NOTE | 2018-01-26 05:29 | CP.PCM.HP ---
History of Present Illness - History of Present Illness History of Present Illness: CC: ESRD/Volume overload HPI: This is a 77 y/o male with MHx significant for CAD/NH in the past, CHF, ? COPD, DM2, HTN, HLD, and ESRD on M/W/F/Sa dialysis who comes in with SOB/volume overload this morning. Patient is due for dialysis today, but could not wait any longer. He has had multiple admissions to this hospital for similar episodes. Essentially, he woke up this AM with acutely worsening SOB and called EMR and was brought in. PCP: Joaquin ROS: 14 systems reviewed, negative other than HPI MHx: CAD/NH in the past, ?COPD, CHF, DM2, HTN, HLD, and ESRD on M/W/F/Sa dialysis SHx: Right A-V fistula for dialysis, PCI/stents x 4 Allergies: Sulfa Medications: Per med rec Family Hx: HTN runs in family Social Hx: Lives with family, no EtOH; patient does use tobacco extensively Surrogate: daughter Juvenal, info in chart Present on Admission - Present on Admission Any Indicators Present on Admission: No Past Patient History - Infectious Disease Hx of Infectious Diseases: None - Tetanus Immunizations Tetanus Immunization: Unknown - Past Medical History & Family History Past Medical History?: Yes - Past Social History Smoking Status: Former Smoker - CARDIAC Hx Congestive Heart Failure: Yes Hx Hypercholesterolemia: Yes Hx Hypertension: Yes - PULMONARY Hx Pneumonia: Yes - NEUROLOGICAL Hx Neurological Disorder: No - HEENT Hx HEENT Problems: No - RENAL Hx Chronic Kidney Disease: Yes Hx Kidney Stones: No - ENDOCRINE/METABOLIC Hx Endocrine Disorders: Yes Hx Diabetes Mellitus Type 2: Yes - HEMATOLOGICAL/ONCOLOGICAL Hx Human Immunodeficiency Virus (HIV): No - INTEGUMENTARY Hx Cellulitis: Yes - MUSCULOSKELETAL/RHEUMATOLOGICAL Hx Falls: No - GASTROINTESTINAL Hx Gastrointestinal Disorders: Yes Hx Colitis: Yes Hx Gastroesophageal Reflux: Yes Other/Comment: Hx Salmonella Gastroenteritis - GENITOURINARY/GYNECOLOGICAL Hx Genitourinary Disorders: No - PSYCHIATRIC Hx Psychophysiologic Disorder: No Hx Substance Use: No - SURGICAL HISTORY Hx Coronary Stent: Yes (x4) - ANESTHESIA Hx Anesthesia: Yes Hx Anesthesia Reactions: No Hx Malignant Hyperthermia: No Meds Allergies/Adverse Reactions: Allergies Allergy/AdvReac Type Severity Reaction Status Date / Time Sulfa (Sulfonamide Allergy PAIN Verified 01/26/18 04:37 Antibiotics) milk AdvReac NAUSEA Verified 01/26/18 04:37 Physical Exam - Constitutional Appears: No Acute Distress - Head Exam Head Exam: ATRAUMATIC, NORMOCEPHALIC - Eye Exam Eye Exam: EOMI, PERRL - ENT Exam ENT Exam: Mucous Membranes Moist - Neck Exam Neck exam: Positive for: Full Rom - Respiratory Exam Respiratory Exam: Decreased Breath Sounds, Rales, Rhonchi Additional comments: On Bipap - Cardiovascular Exam Cardiovascular Exam: REGULAR RHYTHM, +S1, +S2 - GI/Abdominal Exam GI & Abdominal Exam: Normal Bowel Sounds, Soft - Extremities Exam Extremities exam: Positive for: full ROM, pedal edema - Neurological Exam Neurological exam: Alert, CN II-XII Intact, Oriented x3 - Psychiatric Exam Psychiatric exam: Normal Affect, Normal Mood - Skin Skin Exam: Dry, Warm Results - Vital Signs Recent Vital Signs: Last Vital Signs Temp 97 F L 01/26/18 04:37 Pulse 127 H 01/26/18 04:42 Resp 28 H 01/26/18 04:37 BP 113/59 L 01/26/18 04:37 Pulse Ox 100 01/26/18 05:11 - Labs Result Diagrams: 01/26/18 05:00 - EKG Data EKG comments: pending - Imaging and Cardiology Chest x-ray Status: Image reviewed by me (appears c/w volume overload) Assessment & Plan (1) Volume overload Assessment and Plan: 77 y/o male with multiple chronic medical problems who comes in with volume overload in the setting of ESRD/HD. 1) Hypoxic respiratory failure in setting of vol overload 2/2 ESRD and possible acute on chronic diastolic CHF -Admit ICU -Continue NPO and BiPAP -Consult nephrology for dialysis this AM -Continue patient's renal medications 2) COPD -- does not appear to be the major factor in resp failure at this time -Continue PRN duonebs 3) DM2 -q6h accuchecks for now with SSI -resume LA insulin this AM if patient is off bipap and able to take PO 4) DVT PPx -- SQ Heparin Status: Acute (2) Respiratory failure Status: Acute (3) Acute exacerbation of CHF (congestive heart failure) Status: Acute (4) ESRD (end stage renal disease) Status: Chronic (5) Diabetes mellitus Status: Chronic (6) DVT prophylaxis Status: Acute
[2018-01-26 05:33] LABS: TROPONIN I 0.049 ng/mL (0.00-0.120)
[2018-01-26 05:39] LABS: PARTIAL THROMBOPLASTIN TIME 28.6 Seconds (25.6-37.1); PROTHROMBIN TIME 11.5 Seconds (9.8-13.1)
[2018-01-26 05:59] LABS: ALB/GLOB RATIO 1.1 (1.0-2.1); ALBUMIN 3.7 g/dL (3.5-5.0); BASO # 0.1 K/uL (0.0-0.2); BASO % 0.5 % (0.0-2.0); CALCIUM 8.6 mg/dL (8.4-10.2); EOS # 0.2 K/uL (0.0-0.7); EOS % 1.5 % (0.0-4.0); LYMPH # 1.3 K/uL (1.0-4.3); LYMPH % 9.7 % (20.0-40.0); MEAN CELL VOLUME 90.9 fl (80.0-94.0); MEAN CORPUSCULAR HEMOGLOBIN 29.3 pg (27.0-31.0); MEAN CORPUSCULAR HGB CONC 32.2 g/dL (33.0-37.0); MEAN PLATELET VOLUME 8.8 fl (7.2-11.7); MONO # 0.6 K/uL (0.0-0.8); MONO % 4.5 % (0.0-10.0); NEUT # 11.6 K/uL (1.8-7.0); NEUT % 83.8 % (50.0-75.0); PLATELET COUNT 176 K/uL (130-400); RBC 3.76 Mil/uL (4.40-5.90); RED CELL DISTRIBUTION WIDTH 14.9 % (11.5-14.5); WHITE BLOOD COUNT 13.8 K/uL (4.8-10.8)
--- NOTE | 2018-01-26 08:19 | CARD ---
APPROVED REPORT EKG Measurement Heart [id number] MA 146P [id number] <Conclusion> Sinus tachycardia Left axis deviation Left bundle branch block Abnormal ECG
[2018-01-26] MEDS ORDERED: Betamethasone Dip 0.05% Cream(15 gm) TOP SCH (09:00)
--- NOTE | 2018-01-26 10:04 | RAD ---
HISTORY: chest pain COMPARISON: Chest radiograph dated 07/18/2017. FINDINGS: LUNGS: Bilateral patchy opacities. Increased prominence of the interstitial markings. PLEURA: No significant pleural effusion identified, no pneumothorax apparent. CARDIOVASCULAR: Atherosclerotic aortic calcifications. Cardiomediastinal silhouette stably enlarged. OSSEOUS STRUCTURES: Unchanged. VISUALIZED UPPER ABDOMEN: Normal. OTHER FINDINGS: Right subclavian/ brachiocephalic vein stent. IMPRESSION: Bilateral patchy opacities. Increased prominence of the interstitial markings with superimposed pulmonary vascular congestion not excluded.
--- NOTE | 2018-01-26 11:20 | CP.PCM.CON ---
History of Present Illness - History of Present Illness History of Present Illness: This patient who is 77 years of age male came to the emergency room complaining of shortness of breath and difficulty breathing. Patient supposed to go to outpatient dialysis unit and he could not wait and he came because of increasing shortness of breath Patient has significant past medical history related to chronic kidney disease hypertension coronary artery disease and is on dialysis PMH; CAD (DE), CHF, Diabetes, HTN, HLD, End Stage Renal Disease on Hemodialysis M W F; Pneumonia. PSH; Right A-V fistula for dialysis; Coronary stent X4 placement FH: HTN SH: + smoking history, no ivdu or etoh Review of Systems - Constitutional Constitutional: absent: Chills - EENT Nose/Mouth/Throat: absent: Epistaxis, Nasal Discharge - Cardiovascular Cardiovascular: Dyspnea, Edema. absent: Acrocyanosis - Respiratory Respiratory: Cough, Dyspnea, Chest Congestion. absent: Hemoptysis - Gastrointestinal Gastrointestinal: absent: Abdominal Pain - Reproductive: Male Reproductive:Male: As Per HPI - Neurological Neurological: absent: Confusion, Disequilibrium, Focal Weakness - Psychiatric Psychiatric: absent: Anxiety, Confusion - Hematologic/Lymphatic Hematologic: absent: Easy Bleeding Past Patient History - Infectious Disease Hx of Infectious Diseases: None - Tetanus Immunizations Tetanus Immunization: Unknown - Past Medical History & Family History Past Medical History?: Yes - Past Social History Smoking Status: Former Smoker - CARDIAC Hx Congestive Heart Failure: Yes Hx Hypercholesterolemia: Yes Hx Hypertension: Yes - PULMONARY Hx Pneumonia: Yes - NEUROLOGICAL Hx Neurological Disorder: No - HEENT Hx HEENT Problems: No - RENAL Hx Chronic Kidney Disease: Yes Hx Kidney Stones: No - ENDOCRINE/METABOLIC Hx Endocrine Disorders: Yes Hx Diabetes Mellitus Type 2: Yes - HEMATOLOGICAL/ONCOLOGICAL Hx Human Immunodeficiency Virus (HIV): No - INTEGUMENTARY Hx Cellulitis: Yes - MUSCULOSKELETAL/RHEUMATOLOGICAL Hx Falls: No - GASTROINTESTINAL Hx Gastrointestinal Disorders: Yes Hx Colitis: Yes Hx Gastroesophageal Reflux: Yes Other/Comment: Hx Salmonella Gastroenteritis - GENITOURINARY/GYNECOLOGICAL Hx Genitourinary Disorders: No - PSYCHIATRIC Hx Substance Use: No - SURGICAL HISTORY Hx Coronary Stent: Yes (x4) - ANESTHESIA Hx Anesthesia: Yes Hx Anesthesia Reactions: No Hx Malignant Hyperthermia: No Meds Allergies/Adverse Reactions: Allergies Allergy/AdvReac Type Severity Reaction Status Date / Time Sulfa (Sulfonamide Allergy PAIN Verified 01/26/18 04:37 Antibiotics) milk AdvReac NAUSEA Verified 01/26/18 04:37 - Medications Medications: Current Medications Albuterol/Ipratropium (Duoneb 3 Mg/0.5 Mg (3 Ml) Ud) 3 ml INH RQ6 PRN PRN Reason: Shortness of Breath Aspirin (Ecotrin) 81 mg PO DAILY [facility] Last Admin: 01/26/18 10:07 Dose: 81 mg Betamethasone Dipropion Augmented (Diprolene Af) 1 gm TOP DAILY [facility] Last Admin: 01/26/18 10:08 Dose: Not Given Calcium Acetate (Phoslo) 667 mg PO TIDPC [facility] Last Admin: 01/26/18 10:07 Dose: 667 mg Cinacalcet (Sensipar) 30 mg PO DAILY [facility] Last Admin: 01/26/18 10:07 Dose: 30 mg Heparin Sodium (Porcine) (Heparin) 5,000 units SC Q8 RIA PRN Reason: Protocol Last Admin: 01/26/18 10:08 Dose: Not Given Insulin Human Lispro (Humalog) 0 units SC Q6H [facility] PRN Reason: Protocol Pravastatin Sodium (Pravachol) 40 mg PO [facility] Ticagrelor (Brilinta) 90 mg PO BID [facility] Last Admin: 01/26/18 10:07 Dose: 90 mg Physical Exam - Constitutional Appears: No Acute Distress - ENT Exam ENT Exam: Mucous Membranes Moist - Neck Exam Neck exam: Negative for: Lymphadenopathy - Respiratory Exam Respiratory Exam: Rhonchi. absent: Chest Wall Tenderness - Cardiovascular Exam Cardiovascular Exam: REGULAR RHYTHM. absent: Gallop, JVD, Rubs - GI/Abdominal Exam GI & Abdominal Exam: absent: Guarding - Extremities Exam Extremities exam: Negative for: calf tenderness - Back Exam Back exam: absent: CVA tenderness (L), CVA tenderness (R) - Neurological Exam Neurological exam: Alert - Psychiatric Exam Psychiatric exam: Normal Affect Results - Vital Signs Recent Vital Signs: Last Vital Signs Temp 98.3 F 01/26/18 08:00 Pulse 85 01/26/18 10:00 Resp 20 01/26/18 10:00 BP 112/56 L 01/26/18 10:00 Pulse Ox 97 01/26/18 10:00 - Labs Result Diagrams: 01/26/18 05:00 01/26/18 05:00 Labs: Laboratory Results - last 24 hr 0401/26/18 01/26/18 05:00 05:00 05:00 WBC 13.8 H D RBC 3.76 L Hgb 11.0 L Hct 34.2 L MCV 90.9 MCH 29.3 MCHC 32.2 L RDW 14.9 H Plt Count 176 MPV 8.8 Neut % (Auto) 83.8 H Lymph % (Auto) 9.7 L Dickens % (Auto) 4.5 Eos % (Auto) 1.5 Baso % (Auto) 0.5 Neut # (Auto) 11.6 H Lymph # (Auto) 1.3 Dickens # (Auto) 0.6 Eos # (Auto) 0.2 Baso # (Auto) 0.1 PT 11.5 INR 1.0 APTT 28.6 Sodium 148 Potassium 3.5 L Chloride 101 Carbon Dioxide 21 L Anion Gap 30 H BUN 67 H Creatinine 8.6 H* Est GFR ( Amer) 7 Est GFR (Non-Af Amer) 6 Random Glucose 288 H Calcium 8.6 Total Bilirubin 0.5 AST 33 ALT 33 Alkaline Phosphatase 110 Troponin I 0.0490 Total Protein 7.2 Albumin 3.7 Globulin 3.5 Albumin/Globulin Ratio 1.1 Assessment & Plan (1) Acute exacerbation of CHF (congestive heart failure) Status: Acute (2) Volume overload Status: Acute (3) CKD (chronic kidney disease) stage V requiring chronic dialysis Assessment and Plan: Patient is 77 years of age admitted with congestive heart failure and volume overloaded with end stage renal disease. Patient requiring to have hemodialysis as soon as possible. Patient has been made. Order was given Discussed with the dialysis Addition patient with history of diabetes mellitus hypertension coronary artery disease as per primary care team. also patient has history of hyperphosphatemia and secondary hyperparathyroidism. Status: Acute (4) Diabetes mellitus Status: Chronic
[2018-01-26] MEDS: Insulin Lispro (humaLOG) 100 Units/ml Inj SC SCH ×2 (11:45→17:41)
[2018-01-26 12:16] VITALS: O2SAT 100
[2018-01-26 12:46] LABS: ANISOCYTOSIS SLIGHT; BANDS 1 % (0-2); BASOPHIL 1 % (0-2); EOSINOPHIL 2 % (0-7); HYPOCHROMIC SLIGHT; LYMPHOCYTE 12 % (20-50); MONOCYTE 4 % (0-10); NEUTROPHIL 80 % (42-75); PLATELET ESTIMATE NORMAL (NORMAL); TOTAL CELLS COUNTED 100
[2018-01-26 12:51] LABS: PLATELET CLUMPS PRESENT; TOXIC GRANULATION PRESENT
--- NOTE | 2018-01-26 17:40 | CP.PCM.DIS ---
Provider - Provider Date of Admission: 01/26/18 04:51 Attending physician: Paulette Duvall MD Consults: Nephrology consult Time Spent in preparation of Discharge (in minutes): 15 Hospital Course - Lab Results Lab Results: Most Recent Lab Values WBC 13.8 K/uL (4.8-10.8) H D 01/26/18 05:00 RBC 3.76 Mil/uL (4.40-5.90) L 01/26/18 05:00 Hgb 11.0 g/dL (12.0-18.0) L 01/26/18 05:00 Hct 34.2 % (35.0-51.0) L 01/26/18 05:00 MCV 90.9 fl (80.0-94.0) 01/26/18 05:00 MCH 29.3 pg (27.0-31.0) 01/26/18 05:00 MCHC 32.2 g/dL (33.0-37.0) L 01/26/18 05:00 RDW 14.9 % (11.5-14.5) H 01/26/18 05:00 Plt Count 176 K/uL (130-400) 01/26/18 05:00 MPV 8.8 fl (7.2-11.7) 01/26/18 05:00 Neut % (Auto) 83.8 % (50.0-75.0) H 01/26/18 05:00 Lymph % (Auto) 9.7 % (20.0-40.0) L 01/26/18 05:00 [place] % (Auto) 4.5 % (0.0-10.0) 01/26/18 05:00 Eos % (Auto) 1.5 % (0.0-4.0) 01/26/18 05:00 Baso % (Auto) 0.5 % (0.0-2.0) 01/26/18 05:00 Neut # (Auto) 11.6 K/uL (1.8-7.0) H 01/26/18 05:00 Lymph # (Auto) 1.3 K/uL (1.0-4.3) 01/26/18 05:00 [place] # (Auto) 0.6 K/uL (0.0-0.8) 01/26/18 05:00 Eos # (Auto) 0.2 K/uL (0.0-0.7) 01/26/18 05:00 Baso # (Auto) 0.1 K/uL (0.0-0.2) 01/26/18 05:00 Neutrophils % (Manual) 80 % (42-75) H 01/26/18 05:00 Band Neutrophils % 1 % (0-2) 01/26/18 05:00 Lymphocytes % (Manual) 12 % (20-50) L 01/26/18 05:00 Monocytes % (Manual) 4 % (0-10) 01/26/18 05:00 Eosinophils % (Manual) 2 % (0-7) 01/26/18 05:00 Basophils % (Manual) 1 % (0-2) 01/26/18 05:00 Toxic Granulation Present 01/26/18 05:00 Platelet Estimate Normal (NORMAL) 01/26/18 05:00 Plt Clumps, EDTA Present 01/26/18 05:00 Hypochromasia (manual) Slight 01/26/18 05:00 Anisocytosis (manual) Slight 01/26/18 05:00 PT 11.5 Seconds (9.8-13.1) 01/26/18 05:00 INR 1.0 (0.9-1.2) 01/26/18 05:00 APTT 28.6 Seconds (25.6-37.1) 01/26/18 05:00 Sodium 148 mmol/l (132-148) 01/26/18 05:00 Potassium 3.5 MMOL/L (3.6-5.0) L 01/26/18 05:00 Chloride 101 mmol/L (98-107) 01/26/18 05:00 Carbon Dioxide 21 mmol/L (22-30) L 01/26/18 05:00 Anion Gap 30 (10-20) H 01/26/18 05:00 BUN 67 mg/dl (9-20) H 01/26/18 05:00 Creatinine 8.6 mg/dl (0.8-1.5) H* 01/26/18 05:00 Est GFR ( Amer) 7 01/26/18 05:00 Est GFR (Non-Af Amer) 6 01/26/18 05:00 POC Glucose (mg/dL) 150 mg/dL (65-110) H 01/26/18 16:58 Random Glucose 288 mg/dL (75-110) H 01/26/18 05:00 Calcium 8.6 mg/dL (8.4-10.2) 01/26/18 05:00 Total Bilirubin 0.5 mg/dl (0.2-1.3) 01/26/18 05:00 AST 33 U/L (17-59) 01/26/18 05:00 ALT 33 U/L (21-72) 01/26/18 05:00 Alkaline Phosphatase 110 U/L (38-126) 01/26/18 05:00 Troponin I 0.0490 ng/mL (0.00-0.120) 01/26/18 05:00 Total Protein 7.2 G/DL (6.3-8.2) 01/26/18 05:00 Albumin 3.7 g/dL (3.5-5.0) 01/26/18 05:00 Globulin 3.5 gm/dL (2.2-3.9) 01/26/18 05:00 Albumin/Globulin Ratio 1.1 (1.0-2.1) 01/26/18 05:00 - Hospital Course Hospital Course: 77 y/o male with PMH significant for CAD/MN in the past, CHF, COPD, DM2, HTN, HLD, and ESRD on M/W/F/Sa dialysis came in with SOB/volume overload this morning. Patient was due for dialysis today, but could not wait any longer. He has had multiple admissions to this hospital for similar episodes. Essentially, he woke up this AM with acutely worsening SOB and called EMR and was brought in. He placed under observation for fluid overload , CHF exacerbation and hypoxic respiratory failure. He was placed on BIPAP and transferred to ICU . Nephrology was consulted and arrangements made for HD. CXR showed Bilateral patchy opacities. Increased prominence of the interstitial markings with superimposed pulmonary vascular congestion not excluded. Patient is afebrile but WBC 13.8 K N 83 %. Even though he denies any cough , sputum production , fever or chills , given the CXr findings will start empirically on Zithromax Po for 5 days( compared CXr from prior admission Jul 2017 showed some multifocal infiltrate pattern ) 1. Hypoxic respiratory failure in setting of volume overload 2/2 ESRD and possible acute on chronic diastolic CHF Placed on BIPAP HD stat D/c home after HD Continue with HD as scheduled Continue home meds Empirically started Zithromax for pulmonary infiltrates 2.COPD Continue PRN duonebs 3.DM2 resume LA insulin this AM if patient is off bipap and able to take PO 4. Acute exacerbation of CHF (congestive heart failure) due to volume overload systolic and diastolic dysfunction with EF 35 % 5. ESRD ON HD (end stage renal disease) Status: Chronic 6. Bilateral patchy lung opacities suspicious for infiltrate vs chronic start Zithromax PO 7. Anemia of Chronic Disease stable 8. CAD s/p Stents placement on ASA/ Brilinta/ Metoprolol/ Pravastatin 9. HTN controlled on Metoprolol 10 Obesity BMI 37 Discharge Exam - Head Exam Head Exam: ATRAUMATIC, NORMAL INSPECTION, NORMOCEPHALIC Additional comments: obese - Eye Exam Eye Exam: EOMI, PERRL - ENT Exam ENT Exam: Normal Exam - Neck Exam Neck exam: Full Rom, Normal Inspection - Respiratory Exam Respiratory Exam: Clear to PA & Lateral, NORMAL BREATHING PATTERN. absent: Rhonchi, Wheezes - Cardiovascular Exam Cardiovascular Exam: REGULAR RHYTHM, +S1, +S2. absent: JVD - GI/Abdominal Exam GI & Abdominal Exam: Soft. absent: Distended, Guarding, Rebound - Rectal Exam Rectal Exam: Deferred - Extremities Exam Extremities exam: normal capillary refill, normal inspection, pedal edema (1 +) , pedal pulses present - Neurological Exam Neurological exam: Alert, CN II-XII Intact, Oriented x3, Reflexes Normal - Psychiatric Exam Psychiatric exam: Normal Affect, Normal Mood - Skin Skin Exam: Normal Color, Warm Discharge Plan - Discharge Medications Prescriptions: Azithromycin [Z-Rosas] 250 mg PO DAILY #6 tab - Follow Up Plan Condition: IMPROVED Disposition: HOME/ ROUTINE Patient education suggested?: Yes Additional Instructions: renal diet Continue with HSD as scheduled Referrals: Camron Ortiz MD [Staff Provider] - Clinical Quality Measures - CQM - Heart Failure Ejection Fraction: Less Than 40 % Left Ventricular Function to be assessed after discharge: No Beta-Susy Prescribed: Metoprolol Succinate
[2018-01-26 20:59] VITALS: BP 122/57; PULSE 82; RESP 24; TEMP 98.1
[2018-01-26] MEDS ORDERED: Pravastatin Sodium 40 MG TAB PO SCH (22:00)
== END 2018-01-26 22:10 | disposition home or self-care (01) | DRG 291 ==
LOC: H.ER 04:27 → H.ERHOLD 04:51 → H.ICU/CCU 06:18
PROVIDERS: ADMIT Internal Medicine; ATTEND Internal Medicine
PROC: 5A09357 Assistance with Respiratory Ventilation, Less than 24 Consecutive Hours, Continuous Positive Airway Pressure (ICD-10-PCS; principal; 2018-01-26)
PROC: 5A1D70Z Performance of Urinary Filtration, Intermittent, Less than 6 Hours Per Day (ICD-10-PCS; 2018-01-26)
DX: I13.2 Hypertensive heart and chronic kidney disease with heart failure and with stage 5 chronic kidney disease, or end stage renal disease (principal); J96.01 Acute respiratory failure with hypoxia; I50.33 Acute on chronic diastolic (congestive) heart failure; N18.6 End stage renal disease; N25.81 Secondary hyperparathyroidism of renal origin; I25.10 Atherosclerotic heart disease of native coronary artery without angina pectoris; J44.9 Chronic obstructive pulmonary disease, unspecified; Z95.5 Presence of coronary angioplasty implant and graft; Z99.2 Dependence on renal dialysis; E11.22 Type 2 diabetes mellitus with diabetic chronic kidney disease; D63.8 Anemia in other chronic diseases classified elsewhere; E78.5 Hyperlipidemia, unspecified; K21.9 Gastro-esophageal reflux disease without esophagitis; E66.9 Obesity, unspecified; Z68.37 Body mass index [BMI] 37.0-37.9, adult; E78.00 Pure hypercholesterolemia, unspecified; I25.2 Old myocardial infarction; Z79.4 Long term (current) use of insulin; Z79.82 Long term (current) use of aspirin; Z87.01 Personal history of pneumonia (recurrent); Z87.891 Personal history of nicotine dependence; Z88.2 Allergy status to sulfonamides; Z91.011 Allergy to milk products